=== PATIENT | female | born 1955 | race Caucasian/White ===

== ENCOUNTER 2019-11-10 15:06 | Outpatient (CLI) | payer MEDICARE, SELFPAY ==
--- NOTE | 2019-11-10 15:17 | XR_ITS ---
WS: [id number] Bone mineral density performed on a [employer] IDXA, 11/10/2019 Clinical data: POSTMENOPAUSAL Comparison study: DEXA scan, 06/11/2016. Findings: The first 4 lumbar vertebral bodies demonstrated the bone mineral density of 1.413 g/cm2 for a young adult T score of 1.9. Measurement of the left hip reveals a bone mineral density of 0.695 g/cm2 with a young adult T score of -2.5. Measurement of the right hip reveals the bone mineral density of 0.697 g/cm2 for young adult T score of -2.5. XR/XR DEXA axial skeleton* [id number] Impression: 1. Osteopenia of the lumbar spine. 2. Osteoporosis of both hips. 3. The bone mineral density of the hips and spine has worsened.
== END 2019-11-10 15:07 | disposition home or self-care (01) ==
LOC: RADWPI 15:13
PROVIDERS: Family Provider Nurse Practitioner Family; PCP Nurse Practitioner Family; Referring Provider Nurse Practitioner Family; Visit Provider Nurse Practitioner Women's Health
DX: Z78.0 Asymptomatic menopausal state (principal); M85.88 Other specified disorders of bone density and structure, other site; M81.8 Other osteoporosis without current pathological fracture
CPT/HCPCS: 77080

== ENCOUNTER → 2019-11-26 13:54 | Outpatient (BNVA) | payer MEDICARE, MEDICAID, SELFPAY | PROVIDERS: Family Provider Nurse Practitioner Family; PCP Nurse Practitioner Family; Visit Provider Nurse Practitioner Family | DX: R30.0 Dysuria (principal); Z23 Encounter for immunization; J01.00 Acute maxillary sinusitis, unspecified; H57.89 Other specified disorders of eye and adnexa | CPT/HCPCS: 81003 ==

== ENCOUNTER → 2020-01-08 12:30 | Outpatient (BNVA) | payer MEDICARE, SELFPAY | PROVIDERS: Family Provider Nurse Practitioner Family; PCP Nurse Practitioner Family; Visit Provider Nurse Practitioner Psychiatric/Mental Health | DX: F31.62 Bipolar disorder, current episode mixed, moderate (principal); F43.12 Post-traumatic stress disorder, chronic; F40.01 Agoraphobia with panic disorder; G24.01 Drug induced subacute dyskinesia; F17.210 Nicotine dependence, cigarettes, uncomplicated | CPT/HCPCS: 99214 ==

== ENCOUNTER → 2020-01-14 09:48 | Outpatient (BNVA) | payer OTHER, SELFPAY | PROVIDERS: Family Provider Nurse Practitioner Family; PCP Nurse Practitioner Family; Visit Provider Nurse Practitioner Psychiatric/Mental Health | DX: Z79.899 Other long term (current) drug therapy (principal) | CPT/HCPCS: 80053; 80061; 83036; 85025 ==

== ENCOUNTER → 2020-01-27 09:06 | Outpatient (BNVA) | payer MEDICARE, SELFPAY | PROVIDERS: Family Provider Nurse Practitioner Family; PCP Nurse Practitioner Family; Visit Provider Nurse Practitioner Psychiatric/Mental Health | DX: F31.62 Bipolar disorder, current episode mixed, moderate (principal); F43.12 Post-traumatic stress disorder, chronic; F40.01 Agoraphobia with panic disorder; G24.01 Drug induced subacute dyskinesia; F17.210 Nicotine dependence, cigarettes, uncomplicated | CPT/HCPCS: 99214 ==

== ENCOUNTER → 2020-02-10 07:40 | Outpatient (BNVA) | payer MEDICARE, SELFPAY | PROVIDERS: Family Provider Nurse Practitioner Family; PCP Nurse Practitioner Family; Visit Provider Nurse Practitioner Psychiatric/Mental Health | DX: F31.62 Bipolar disorder, current episode mixed, moderate (principal); F43.12 Post-traumatic stress disorder, chronic; F40.01 Agoraphobia with panic disorder; G24.01 Drug induced subacute dyskinesia; F17.210 Nicotine dependence, cigarettes, uncomplicated | CPT/HCPCS: 99214 ==

== ENCOUNTER → 2020-02-24 08:27 | Outpatient (BNVA) | payer MEDICARE, SELFPAY | PROVIDERS: Family Provider Nurse Practitioner Family; PCP Nurse Practitioner Family; Visit Provider Nurse Practitioner Psychiatric/Mental Health | DX: F31.62 Bipolar disorder, current episode mixed, moderate (principal); F43.12 Post-traumatic stress disorder, chronic; F40.01 Agoraphobia with panic disorder; G24.01 Drug induced subacute dyskinesia; F17.210 Nicotine dependence, cigarettes, uncomplicated; F60.3 Borderline personality disorder | CPT/HCPCS: 99214 ==

== ENCOUNTER → 2020-03-07 11:48 | Outpatient (BNVA) | payer MEDICARE, SELFPAY | PROVIDERS: Family Provider Nurse Practitioner Family; PCP Nurse Practitioner Family; Visit Provider Nurse Practitioner Psychiatric/Mental Health | DX: F43.12 Post-traumatic stress disorder, chronic (principal); F31.62 Bipolar disorder, current episode mixed, moderate; F40.01 Agoraphobia with panic disorder; F17.210 Nicotine dependence, cigarettes, uncomplicated; G24.01 Drug induced subacute dyskinesia; F33.2 Major depressive disorder, recurrent severe without psychotic features | CPT/HCPCS: 99214 ==

== ENCOUNTER → 2020-03-23 08:09 | Outpatient (BNVA) | payer MEDICARE, SELFPAY ==
[2020-01-25 10:52] VITALS: BP 111/72; BMI 24.9
== END ==
PROVIDERS: Family Provider Nurse Practitioner Family; PCP Nurse Practitioner Family; Visit Provider Nurse Practitioner Psychiatric/Mental Health
DX: F31.62 Bipolar disorder, current episode mixed, moderate (principal); F43.12 Post-traumatic stress disorder, chronic; F40.01 Agoraphobia with panic disorder; G24.01 Drug induced subacute dyskinesia; F17.210 Nicotine dependence, cigarettes, uncomplicated
CPT/HCPCS: 99214

== ENCOUNTER → 2020-04-11 08:13 | Outpatient (BNVA) | payer MEDICARE, MEDICAID, SELFPAY ==
[2020-01-25 10:52] VITALS: BP 111/72; BMI 24.9
== END ==
PROVIDERS: Family Provider Nurse Practitioner Family; PCP Nurse Practitioner Family; Visit Provider Nurse Practitioner Psychiatric/Mental Health
DX: F31.62 Bipolar disorder, current episode mixed, moderate (principal); F43.12 Post-traumatic stress disorder, chronic; F40.01 Agoraphobia with panic disorder; G24.01 Drug induced subacute dyskinesia; F17.210 Nicotine dependence, cigarettes, uncomplicated
CPT/HCPCS: 99214

== ENCOUNTER → 2020-04-13 09:56 | Outpatient (BNVA) | payer MEDICARE, MEDICAID, SELFPAY ==
[2020-01-25 10:52] VITALS: BP 111/72; BMI 24.9
== END ==
PROVIDERS: Family Provider Nurse Practitioner Family; PCP Nurse Practitioner Family; Visit Provider Nurse Practitioner Family
DX: Z79.899 Other long term (current) drug therapy (principal)
CPT/HCPCS: 80053; 80178; 85025

== ENCOUNTER → 2020-05-18 07:41 | Outpatient (BNVA) | payer MEDICARE, MEDICAID, SELFPAY ==
[2020-01-25 10:52] VITALS: BP 111/72; BMI 24.9
== END ==
PROVIDERS: Family Provider Nurse Practitioner Family; PCP Nurse Practitioner Family; Visit Provider Nurse Practitioner Psychiatric/Mental Health
DX: F31.62 Bipolar disorder, current episode mixed, moderate (principal); F43.12 Post-traumatic stress disorder, chronic; F40.01 Agoraphobia with panic disorder; G24.01 Drug induced subacute dyskinesia; F17.210 Nicotine dependence, cigarettes, uncomplicated
CPT/HCPCS: 99214

== ENCOUNTER → 2020-06-15 07:47 | Outpatient (BNVA) | payer MEDICARE, MEDICAID, SELFPAY ==
[2020-01-25 10:52] VITALS: BP 111/72; BMI 24.9
== END ==
PROVIDERS: Family Provider Nurse Practitioner Family; PCP Nurse Practitioner Family; Visit Provider Nurse Practitioner Psychiatric/Mental Health
DX: F31.62 Bipolar disorder, current episode mixed, moderate (principal); F43.12 Post-traumatic stress disorder, chronic; F40.01 Agoraphobia with panic disorder; F17.210 Nicotine dependence, cigarettes, uncomplicated; G24.01 Drug induced subacute dyskinesia
CPT/HCPCS: 99214

== ENCOUNTER → 2020-07-15 09:23 | Outpatient (BNVA) | payer MEDICARE, MEDICAID, SELFPAY ==
[2020-01-25 10:52] VITALS: BP 111/72; BMI 24.9
== END ==
PROVIDERS: Family Provider Nurse Practitioner Family; PCP Nurse Practitioner Family; Visit Provider Nurse Practitioner Psychiatric/Mental Health
DX: F31.62 Bipolar disorder, current episode mixed, moderate (principal); F43.12 Post-traumatic stress disorder, chronic; F40.01 Agoraphobia with panic disorder; F17.210 Nicotine dependence, cigarettes, uncomplicated; G24.01 Drug induced subacute dyskinesia
CPT/HCPCS: 99214

== ENCOUNTER → 2020-07-25 08:53 | Outpatient (BNVA) | payer MEDICARE, MEDICAID, SELFPAY ==
[2020-01-25 10:52] VITALS: BP 111/72; BMI 24.9
== END ==
PROVIDERS: Family Provider Nurse Practitioner Family; PCP Nurse Practitioner Family; Visit Provider Nurse Practitioner Family
DX: E78.5 Hyperlipidemia, unspecified (principal); J44.9 Chronic obstructive pulmonary disease, unspecified
CPT/HCPCS: 80053; 80061; 85025

== ENCOUNTER → 2020-08-10 08:14 | Outpatient (BNVA) | payer MEDICARE, MEDICAID, SELFPAY ==
[2020-01-25 10:52] VITALS: BP 111/72; BMI 24.9
== END ==
PROVIDERS: Family Provider Nurse Practitioner Family; PCP Nurse Practitioner Family; Visit Provider Nurse Practitioner Psychiatric/Mental Health
DX: F31.62 Bipolar disorder, current episode mixed, moderate (principal); F43.12 Post-traumatic stress disorder, chronic; F40.01 Agoraphobia with panic disorder; F17.210 Nicotine dependence, cigarettes, uncomplicated
CPT/HCPCS: 99214

== ENCOUNTER → 2020-08-24 13:30 | Outpatient (BNVA) | payer MEDICARE, MEDICAID, SELFPAY ==
[2020-08-24 08:35] VITALS: BP 111/72; BMI 24.9
== END ==
PROVIDERS: Family Provider Nurse Practitioner Family; PCP Nurse Practitioner Family; Visit Provider Nurse Practitioner Family
DX: J43.9 Emphysema, unspecified (principal)
CPT/HCPCS: 71046

== ENCOUNTER → 2020-10-12 07:57 | Outpatient (BNVA) | payer MEDICARE, MEDICAID, SELFPAY ==
[2020-08-24 08:35] VITALS: BP 111/72; BMI 24.9
== END ==
PROVIDERS: Family Provider Nurse Practitioner Family; PCP Nurse Practitioner Family; Visit Provider Nurse Practitioner Psychiatric/Mental Health
DX: F31.62 Bipolar disorder, current episode mixed, moderate (principal); F43.12 Post-traumatic stress disorder, chronic; F40.01 Agoraphobia with panic disorder; G24.01 Drug induced subacute dyskinesia; F17.210 Nicotine dependence, cigarettes, uncomplicated
CPT/HCPCS: 99214

== ENCOUNTER 2020-10-25 10:21 | Outpatient (CLI) | payer MEDICARE, MEDICAID, SELFPAY ==
[2020-08-24 08:35] VITALS: BP 111/72; BMI 24.9
--- NOTE | 2020-10-25 10:30 | CT_ITS ---
WS: [id number] LDCT LUNG CANCER SCREENING HISTORY: NICOTINE DEPENDENCE, CIGARETTES TECHNIQUE: Axial imaging performed from the apices to 1 cm below the costophrenic angles. Coronal and sagittal reformats are submitted with axial MIP series. All CT scans at [facility] use at least one of these dose optimization techniques: automated exposure control; mA and/or kV adjustment per patient size (includes targeted exams where dose is matched to clinical indication); or iterativ e reconstruction. DLP: 58.15 mGy.cm DIvol: 1.58 mGy COMPARISON: None available. Diagnostic quality: Satisfactory Lung Nodules: None. Lungs: Mild hyperexpansion from emphysema. No endobronchial lesions. Heart: Normal size heart. Other findings: None. CT/CT lung screening [id number] IMPRESSION: LUNG-RADS: 1-Negative FOLLOW UP: 12 Month: Continue annual screening with LDCT OTHER FINDINGS (S MODIFIER): None.
== END 2020-10-25 10:22 | disposition home or self-care (01) ==
LOC: CT 10:28
PROVIDERS: PCP Nurse Practitioner Family; Visit Provider Internal Medicine Pulmonary Disease
DX: Z12.2 Encounter for screening for malignant neoplasm of respiratory organs (principal); F17.210 Nicotine dependence, cigarettes, uncomplicated
CPT/HCPCS: G0297

== ENCOUNTER → 2020-11-16 08:11 | Outpatient (BNVA) | payer MEDICARE, MEDICAID, SELFPAY ==
[2020-08-24 08:35] VITALS: BP 111/72; BMI 24.9
== END ==
PROVIDERS: PCP Nurse Practitioner Family; Visit Provider Nurse Practitioner Psychiatric/Mental Health
DX: F31.62 Bipolar disorder, current episode mixed, moderate (principal); F43.12 Post-traumatic stress disorder, chronic; F40.01 Agoraphobia with panic disorder; G24.01 Drug induced subacute dyskinesia; F17.210 Nicotine dependence, cigarettes, uncomplicated
CPT/HCPCS: 99214

== ENCOUNTER 2020-11-25 13:51 | Outpatient (CLI) | payer MEDICARE, MEDICAID, SELFPAY ==
[2020-08-24 08:35] VITALS: BP 111/72; BMI 24.9
--- NOTE | 2020-11-25 14:00 | MM_ITS ---
WS: [id number] BILATERAL SCREENING DIGITAL MAMMOGRAM WITH CAD HISTORY: SCREENING COMPARISON: 07/31/2019 and 06/23/2018 Bilateral CC and MLO views submitted. Computer aided detection analyzed. Breast composition: There are scattered areas of fibroglandular density. No suspicious masses, microc alcifications or architectural distortion. MM/[place] [id number] IMPRESSION: BI-RADS: 1-Negative FOLLOW UP: 1 Year Follow-up
== END 2020-11-25 13:52 | disposition home or self-care (01) ==
LOC: RADSHAW 13:57
PROVIDERS: PCP Nurse Practitioner Family; Visit Provider Nurse Practitioner Family
DX: Z12.31 Encounter for screening mammogram for malignant neoplasm of breast (principal)
CPT/HCPCS: 77067

== ENCOUNTER → 2020-12-07 08:15 | Outpatient (BNVA) | payer MEDICARE, MEDICAID, SELFPAY ==
[2020-08-24 08:35] VITALS: BP 111/72; BMI 24.9
== END ==
PROVIDERS: PCP Nurse Practitioner Family; Visit Provider Nurse Practitioner Psychiatric/Mental Health
DX: F31.62 Bipolar disorder, current episode mixed, moderate (principal); F43.12 Post-traumatic stress disorder, chronic; F40.01 Agoraphobia with panic disorder; G24.01 Drug induced subacute dyskinesia; F17.210 Nicotine dependence, cigarettes, uncomplicated
CPT/HCPCS: 99214

== ENCOUNTER → 2021-01-05 08:04 | Outpatient (BNVA) | payer MEDICARE, MEDICAID, SELFPAY ==
[2020-08-24 08:35] VITALS: BP 111/72; BMI 24.9
== END ==
PROVIDERS: PCP Nurse Practitioner Family; Visit Provider Nurse Practitioner Psychiatric/Mental Health
DX: F31.62 Bipolar disorder, current episode mixed, moderate (principal); F43.12 Post-traumatic stress disorder, chronic; F40.01 Agoraphobia with panic disorder; F17.210 Nicotine dependence, cigarettes, uncomplicated; G24.01 Drug induced subacute dyskinesia; Z79.899 Other long term (current) drug therapy
CPT/HCPCS: 99214

== ENCOUNTER → 2021-01-10 08:32 | Outpatient (BNVA) | payer MEDICARE, MEDICAID, SELFPAY ==
[2020-08-24 08:35] VITALS: BP 111/72; BMI 24.9
== END ==
PROVIDERS: PCP Nurse Practitioner Family; Visit Provider Nurse Practitioner Psychiatric/Mental Health
DX: F31.62 Bipolar disorder, current episode mixed, moderate (principal); Z79.899 Other long term (current) drug therapy
CPT/HCPCS: 80053; 80061; 80178; 84443

== ENCOUNTER → 2021-02-02 08:43 | Outpatient (BNVA) | payer MEDICARE, MEDICAID, SELFPAY ==
[2020-08-24 08:35] VITALS: BP 111/72; BMI 24.9
== END ==
PROVIDERS: PCP Nurse Practitioner Family; Visit Provider Nurse Practitioner Psychiatric/Mental Health
DX: F31.62 Bipolar disorder, current episode mixed, moderate (principal); F43.12 Post-traumatic stress disorder, chronic; F40.01 Agoraphobia with panic disorder; F17.210 Nicotine dependence, cigarettes, uncomplicated; G24.01 Drug induced subacute dyskinesia
CPT/HCPCS: 99214

== ENCOUNTER → 2021-03-09 10:14 | Outpatient (BNVA) | payer MEDICARE, MEDICAID, SELFPAY ==
[2020-08-24 08:35] VITALS: BP 111/72; BMI 24.9
== END ==
PROVIDERS: PCP Nurse Practitioner Family; Visit Provider Otolaryngology
DX: R49.0 Dysphonia (principal); Z20.822 Contact with and (suspected) exposure to COVID-19
CPT/HCPCS: 87635

== ENCOUNTER → 2021-03-13 07:57 | Outpatient (BNVA) | payer MEDICARE, MEDICAID, SELFPAY ==
[2020-08-24 08:35] VITALS: BP 111/72; BMI 24.9
== END ==
PROVIDERS: PCP Nurse Practitioner Family; Visit Provider Nurse Practitioner Psychiatric/Mental Health
DX: F31.62 Bipolar disorder, current episode mixed, moderate (principal); F43.12 Post-traumatic stress disorder, chronic; F40.01 Agoraphobia with panic disorder; F17.210 Nicotine dependence, cigarettes, uncomplicated; G24.01 Drug induced subacute dyskinesia; F32.9 Major depressive disorder, single episode, unspecified
CPT/HCPCS: 99214

== ENCOUNTER 2021-03-15 09:45 | Day surgery (SDC) | payer MEDICARE, MEDICAID, SELFPAY ==
[2020-08-24 08:35] VITALS: BP 111/72; BMI 24.9
[2021-03-14 14:49] VITALS: BMI 26.8
[2021-03-15] VITALS (7 sets, daily range): BP systolic 109–119; BP diastolic 73–78; PULSE 75–84; RESP 16–24; TEMP 36.3–36.6; O2SAT 95–99
[2021-03-15] MEDS: sodium chloride 0.9% 1,000 ML 30 ML IV (10:36)
--- NOTE | 2021-03-15 11:06 | ANES.PREANE2 ---
Pre-Anesthetic Assessment Pre-Anesthetic Assessment: Height/Weight: Height 1.68 m Weight 75.296 kg Temp Pulse Resp BP Pulse Ox 98 F 84 16 109/73 95 03/15/21 10:31 03/15/21 10:31 03/15/21 10:31 03/15/21 10:31 03/15/21 10:31 Preop Diagnosis: Hoarseness with left true vocal cord lesion Proposed Procedure: Operation Date: 03/15/21 11:30 Proposed Procedures p Direct Laryngoscopy with biospy 44065 R49.0(Not Applicable) - Daniel Castillo MD Familial anesthetic complications: None Was Beta Paula taken within 24 hours: N/A Was Clonidine taken within 24 hours: N/A Last intake: Intake Last Liquid Date 03/15/21 Last Liquid Time 02:00 Last Solid Date 03/14/21 Last Solid Time 18:30 Social: Social History: Tobacco and No alcohol Exam: Pre-Anes Outpt Exam: alert, oriented x 3, clear to auscultation bilaterally and regular rate & rhythm Airway: Cervical ROM: WNL MP: 3 Dentition: Full Pulmonary: Pulmonary: COPD GI: GI: GERD Metabolic: Metabolic: Hyperlipidemia Neuropsych: Comments: tardive dyskinesia Anesthetic Plan: ASA status: 3 Anesthesia: General Risk of > 500 ml blood loss (7ml/kg in children): No Meds/Allergies Current Medications: Current Medications Generic Name Dose Route Start Last Admin Trade Name Freq PRN Reason Stop Dose Admin Sodium Chloride 1,000 mls @ 30 ml s/hr 03/15/21 10:15 03/15/21 10:36 Sodium Chloride 0.9% IV 03/16/21 10:14 30 mls/hr .Q24H JORGE Administration PFSH Anesthesia PFSH: Medical History (Updated 03/13/21 @ 09:38 by Nelda Barbour, [facility]) Anxiety and depression Bipolar 1 disorder, mixed, moderate Bipolar disorder, current episode mixed, unspecified Chronic arthritis Chronic GERD Chronic obstructive pulmonary disease, unspecified Chronic post-traumatic stress disorder Depression, major, recurrent, moderate Dyskinesia, tardive Drug induced Dyslipidemia Environmental and seasonal allergies Major depressive disorder, recurrent episode, moderate with anxious distress Nicotine dependence, cigarettes, uncomplicated Panic disorder with agoraphobia Unspecified hearing loss, left ear Surgical History History of back surgery History of bilateral knee replacement History of D&C History of laparoscopy History of sinus surgery History of tonsillectomy Family History Other Cancer Chronic obstructive pulmonary disease, unspecified Diabetes Heart disease Hyperlipidemia Hypertension Thyroid disease Social History Smoking and tobacco status: current every day smoker cigarettes Packs smoked per day: 1 Years cigarettes smoked: 40 Quit status (tobacco): not considering quitting Smoking risk assessment/counseling performed?: Yes Alcohol intake: never Lives independently: Yes Household members: none Housing: Apartment Marital status: Single Number of children: 0 Number of grandchildren: 0 Highest education level completed: Some College, No Degree service: No Current occupational status: disabled Pets and animals: No History of recent travel: No Leisure activites: other Leisure activities details: watching television Sexually active: No Current gender identity: Female Sury/Shinto: [employer] Special sury needs: No Agree to transfusion: Yes Financial difficulty paying for basics: Not Very Hard Female Reproductive History: Para: 0 Spontaneous abortions: No Date of menopause: 05/03/04 Data Anesthesia Cardiac Studies: No Data to Display
--- NOTE | 2021-03-15 11:07 | W.PM.OPSUD ---
Surgery/Procedure H&P Update DATE OF PROCEDURE: March 15, 2021 DATE H&P PERFORMED: 03/02/21 H&P UPDATE INFORMATION: I have reviewed H&P completed within last 30 days, I have examined patient prior to procedure and No changes to prior documentation PREOP DIAGNOSIS: Hoarseness with left true vocal cord lesion PLANNED PROCEDURE: Operation Date: 03/15/21 11:30 Proposed Procedures p Direct Laryngoscopy with biospy 68795 R49.0(Not Applicable) - Daniel Castillo MD
[2021-03-15] MEDS: levofloxacin-dextrose 5 % 750 MG/150 ML PREMIX 100 MG IV (11:18)
[2021-03-15] MEDS: EPINEPHrine 1 mg/mL INJ XX (11:35)
--- NOTE | 2021-03-15 11:43 | PM.OP ---
Operative Report Date of procedure: March 15, 2021 Pre-op Diagnosis: Hoarseness with left true vocal cord lesion Post-op diagnosis: same Post-op Findings: Left vocal cord centrally had leukoplakic lesion on superior and medial surfaces. Procedure Done: Direct suspension microscopic laryngoscopy with biopsy of left true vocal cord lesion Specimens removed/disposition: Left true vocal cord specimen to pathology for permanent section Surgeon: Daniel Castillo Anesthesia: General Estimated blood loss (mL): 5 Complications: No complications Findings: Findings at the time of surgery were white plaque that was firm on superior and medial surface of the central portion of the left true vocal cord. Mild erythema around this. Also swelling. Condition: stable Disposition: PACU Brief History: 65-year-old female patient with a heavy smoking history and hoarseness noted to have a leukoplakic lesion in the central vocal cord on the left side. She is being brought to the operating room to undergo direct suspension microscopic laryngoscopy and biopsy of this area. The procedure its risks and complications were explained in detail in the office setting. These risks included bleeding infection scarring voice change hoarseness regrowth need for additional treatment and more serious risk such as heart attack or stroke or not surviving the surgery. With these things understood informed consent was granted. Procedure: Patient was placed on the operating table in supine position. Adequate general endotracheal tube anesthesia was obtained. The table was rotated 90 degrees. The head was dropped 15 degrees to the horizontal and the eyes were taped shut. A timeout was accomplished identifying the patient date of plan procedure allergies fire risk and medications given. With all in agreement the procedure continued. A tooth guard was placed over the upper dentition. A Sridhar Matt mouthgag was then inserted over the endotracheal tube and tongue ensuring that the upper incisors were in the guard. This was then opened and suspended from a Dillard stand. A microscope with a 400 lens was brought in for visualization through the laryngoscope. The left cord was visualized and noted to have the white lacelike plaque covering the medial and superior surface in the central portion of the left cord. This was removed with cup forceps. With removal it was evident that there was definite edema of the cord as well. After the biopsies were taken epinephrine 1-1000 was applied on a cottonoid. After couple of minutes this was removed. There was no sign of active bleeding. No other biopsies were necessary. An LTA was dispensed utilizing 1% Xylocaine 3 mL. Excess was suctioned. The laryngoscope was taken down from suspension and the laryngoscope was removed. A tooth guard was removed. The patient was then returned to the anesthesiologist for wake-up and extubation. She tolerated the procedure well had an estimated blood loss of 5 mL or less and arrived in recovery in stable condition.
--- NOTE | 2021-03-15 11:56 | SUR.PHASEI ---
PT AWAKE ALERT INSTRUCTED TO BE ON STRICT VOICE REST,PT NODS HEAD IN ANSWER, DENIES PAIN AND NAUSEA, VSS PT ON RA BUT NODS THAT SHE FEELS SHORT OF BREATH, SATS 99% PT PLACED ON2LNC FOR COMFORT, SATS MAINTAINED AT 97% PT EXPRESSING MUCH MORE RELAXED PT TAKING OCC ICE CHIP AND TOLERATING WELLL
--- NOTE | 2021-03-15 14:25 | ANE.PACU2 ---
Inpatient post-anesthesia follow up: Airway intact: Yes Vital signs: Temperature 97.8 F Pulse Rate 76 Respiratory Rate 18 Blood Pressure 114/74 Pulse Oximetry 96 Oxygen Delivery Me thod Nasal Cannula Oxygen Flow Rate 2.0 Fraction of Inspir ed Oxygen Hydration adequate: Yes Nausea and vomiting: No Pain level: 2 Mental status: Baseline
== END 2021-03-15 12:55 | disposition home or self-care (01) ==
PROVIDERS: PCP Nurse Practitioner Family; Visit Provider Otolaryngology
PROC: 0CJS8ZZ Inspection of Larynx, Via Natural or Artificial Opening Endoscopic (ICD-10-PCS; CPT 31536; principal; 2021-03-15 11:20)
DX: D14.1 Benign neoplasm of larynx (principal); R49.0 Dysphonia; J44.9 Chronic obstructive pulmonary disease, unspecified; E78.5 Hyperlipidemia, unspecified; F41.9 Anxiety disorder, unspecified; F31.9 Bipolar disorder, unspecified; M19.90 Unspecified osteoarthritis, unspecified site; F17.210 Nicotine dependence, cigarettes, uncomplicated
CPT/HCPCS: 31536; 88305; J0171; J1100; J1956; J2405; J2704; J2710; J3010; J3490; J7030

== ENCOUNTER → 2021-04-10 07:36 | Outpatient (BNVA) | payer MEDICARE, MEDICAID, SELFPAY ==
[2020-08-24 08:35] VITALS: BP 111/72; BMI 24.9
== END ==
PROVIDERS: PCP Nurse Practitioner Family; Visit Provider Nurse Practitioner Psychiatric/Mental Health
DX: F31.62 Bipolar disorder, current episode mixed, moderate (principal); F43.12 Post-traumatic stress disorder, chronic; F40.01 Agoraphobia with panic disorder; F17.210 Nicotine dependence, cigarettes, uncomplicated; G24.01 Drug induced subacute dyskinesia
CPT/HCPCS: 99214

== ENCOUNTER 2021-04-27 08:58 | Outpatient (CLI) | payer MEDICARE, MEDICAID, SELFPAY ==
[2020-08-24 08:35] VITALS: BP 111/72; BMI 24.9
--- NOTE | 2021-04-27 09:30 | USCV_ITS ---
Tika Garcia Age: 65 Gender: F : 1955 Exam Date: 04/27/2021 09:23 Ordering Phys: Tracey Shrestha PYTHON ENGINEER-Yvrose Technologist: Teresa Bravo Exam Location: [facility] [place] Indication: Localized edema BP: 110 / 62 HR: 67 Rhythm: Sinus Technical Quality: Suboptimal MEASUREMENTS (Male / Female) Normal Values 2D ECHO LV Diastolic Diameter PLAX 3.0 cm 4.2 - 5.9 / 3.9 - 5.3 cm LV Systolic Diameter PLAX 2.0 cm LV Chamber Size 3.5 cm IVS Diastolic Thickness 1.9 cm 0.6 - 1.0 / 0.6 - 0.9 cm IVS Systolic Thickness 1.7 cm LVPW Diastolic Thickness 1.0 cm 0.6 - 1.0 / 0.6 - 0.9 cm LVPW Systolic Thickness 1.2 cm RV Chamber Size 2.2 cm LVOT Diameter 1.8 cm LV Ejection Fraction 2D Teich 65.7 % LV Ejection Fraction MOD 2C 73.8 % LV Ejection Fraction 2C AL 73.3 % LA Diameter 2.3 cm LA Width 1.9 cm LA Height 4.5 cm RA Width 2.1 cm RA Height 4.1 cm Aorta at Sinotubular Diameter 2.5 cm M-MODE LV Diastolic Diameter MM 3.9 cm 4.2 - 5.9 / 3.9 - 5.3 cm LV Systolic Diameter MM 2.5 cm LV Ejection Fraction MM Teich 64.2 % IVS Diastolic Thickness MM 1.1 cm 0.6 - 1.0 / 0.6 - 0.9 cm IVS Systolic Thickness MM 1.0 cm LVPW Diastolic Thickness MM 1.0 cm 0.6 - 1.0 / 0.6 - 0.9 cm LVPW Systolic Thickness MM 1.3 cm RV Diastolic Diameter MM 0.5 cm Aortic Annulus Diameter 2.9 cm LA Ao Ratio MM 0.9 DOPPLER AV Peak Velocity 118.0 cm/s LVOT Peak Velocity 113.0 cm/s AV Area Cont Eq vti 2.6 cm squared AV Area Cont Eq pk 2.5 cm squared MV Area PHT 3.1 cm squared Mitral E to A Ratio 0.9 MV E' Velocity 35.5 cm/s Mitral E to MV E' Ratio 8.2 Mitral E to LV E' Lateral Ratio 7.0 Mitral E to LV E' Septal Ratio 10.1 TV Peak E Velocity 46.0 cm/s Right Atrial Pressure 8.0 mmHg FINDINGS Left Ventricle Normal left ventricular size, systolic function and wall thickness, with no regional wall motion abnormalities. Left ventricular ejection fraction is estimated at 65 %. Normal diastolic function. Right Ventricle Normal right ventricular size and systolic function. Normal pulmonary artery pressure. Right Atrium Normal right atrial size. Right atrial pressure estimated at 8 mm Hg. Left Atrium Normal left atrial size. Mitral Valve Mildly thickened mitral valve. No mitral valve stenosis. No significant mitral valve regurgitation. Aortic Valve Aortic valve not well visualized. No aortic valve stenosis. No aortic valve regurgitation. Tricuspid Valve Structurally normal tricuspid valve. Trace to mild tricuspid valve regurgitation. Pulmonic Valve Pulmonic valve not well visualized. Pericardium No pericardial effusion. Aorta Normal sized aortic root. Normal sized inferior vena cava with normal respiratory variations. CONCLUSIONS 1. Normal left ventricular size, systolic function and wall thickness, with no regional wall motion abnormalities. Left ventricular ejection fraction is estimated at 65 %. Normal diastolic function. 2. Normal right ventricular size and systolic function. 3. No significant valvular abnormality. 4. Normal pulmonary artery pressure. 5. No prior similar studies to compare. Merlyn Fung MD (Electronically Signed) Final Date: 29 April 2021 12:41 S
== END 2021-04-27 08:59 | disposition home or self-care (01) ==
PROVIDERS: PCP Nurse Practitioner Family; Visit Provider Nurse Practitioner Family
DX: R60.0 Localized edema (principal)
CPT/HCPCS: 93306

== ENCOUNTER → 2021-05-15 07:10 | Outpatient (BNVA) | payer MEDICARE, MEDICAID, SELFPAY ==
[2020-08-24 08:35] VITALS: BP 111/72; BMI 24.9
== END ==
PROVIDERS: PCP Nurse Practitioner Family; Visit Provider Nurse Practitioner Psychiatric/Mental Health
DX: F31.62 Bipolar disorder, current episode mixed, moderate (principal); F43.12 Post-traumatic stress disorder, chronic; F40.01 Agoraphobia with panic disorder; F17.210 Nicotine dependence, cigarettes, uncomplicated; G24.01 Drug induced subacute dyskinesia; Z79.899 Other long term (current) drug therapy
CPT/HCPCS: 99214

== ENCOUNTER → 2021-06-07 09:54 | Outpatient (BNVA) | payer MEDICARE, MEDICAID, SELFPAY ==
[2020-08-24 08:35] VITALS: BP 111/72; BMI 24.9
== END ==
PROVIDERS: PCP Nurse Practitioner Family; Visit Provider Nurse Practitioner Psychiatric/Mental Health
DX: E78.5 Hyperlipidemia, unspecified (principal); Z79.899 Other long term (current) drug therapy; J30.89 Other allergic rhinitis; J44.9 Chronic obstructive pulmonary disease, unspecified
CPT/HCPCS: 80053; 80061; 80178; 85025

== ENCOUNTER → 2021-06-19 07:30 | Outpatient (BNVA) | payer MEDICARE, MEDICAID, SELFPAY ==
[2020-08-24 08:35] VITALS: BP 111/72; BMI 24.9
== END ==
PROVIDERS: PCP Nurse Practitioner Family; Visit Provider Nurse Practitioner Psychiatric/Mental Health
DX: F31.62 Bipolar disorder, current episode mixed, moderate (principal); F43.12 Post-traumatic stress disorder, chronic; F40.01 Agoraphobia with panic disorder; F17.210 Nicotine dependence, cigarettes, uncomplicated; G24.01 Drug induced subacute dyskinesia; Z79.899 Other long term (current) drug therapy
CPT/HCPCS: 99214

== ENCOUNTER → 2021-07-24 07:33 | Outpatient (BNVA) | payer MEDICARE, MEDICAID, SELFPAY ==
[2020-08-24 08:35] VITALS: BP 111/72; BMI 24.9
== END ==
PROVIDERS: PCP Nurse Practitioner Family; Visit Provider Nurse Practitioner Psychiatric/Mental Health
DX: F31.62 Bipolar disorder, current episode mixed, moderate (principal); F43.12 Post-traumatic stress disorder, chronic; F17.210 Nicotine dependence, cigarettes, uncomplicated; F40.01 Agoraphobia with panic disorder; G24.01 Drug induced subacute dyskinesia; Z79.899 Other long term (current) drug therapy
CPT/HCPCS: 99214

== ENCOUNTER → 2021-08-02 14:54 | Outpatient (BNVA) | payer MEDICARE, MEDICAID, SELFPAY ==
[2020-08-24 08:35] VITALS: BP 111/72; BMI 24.9
== END ==
PROVIDERS: PCP Nurse Practitioner Family; Visit Provider Nurse Practitioner Family
DX: R10.11 Right upper quadrant pain (principal); K21.9 Gastro-esophageal reflux disease without esophagitis
CPT/HCPCS: 80053; 85025

== ENCOUNTER → 2021-08-04 10:12 | Outpatient (BNVA) | payer MEDICARE, MEDICAID, SELFPAY ==
[2020-08-24 08:35] VITALS: BP 111/72; BMI 24.9
== END ==
PROVIDERS: PCP Nurse Practitioner Family; Visit Provider Nurse Practitioner Family
DX: R10.11 Right upper quadrant pain (principal)
CPT/HCPCS: 82270

== ENCOUNTER 2021-09-05 08:25 | Outpatient (CLI) | payer MEDICARE, MEDICAID, SELFPAY ==
[2020-08-24 08:35] VITALS: BP 111/72; BMI 24.9
--- NOTE | 2021-09-05 08:45 | US_ITS ---
WS: [id number] ULTRASOUND ABDOMEN LIMITED CLINICAL INFORMATION: R10.11 - Right upper quadrant pain COMPARISON: 017 FINDINGS: Liver Size: Normal. Craniocaudal length: 12.9 cm. Echogenicity: Normal. Surface nodularity: None. Mass (size and location): None. Bile ducts Intrahepatic ducts: Normal. Common bile duct diameter: 0.3 cm. Gallbladder Normal. Gallstones: None. Gallbladder sludge: None. Gallbladder wall thickening: None. Pericholecystic fluid: None. Sonographic Meeks sign: Absent. Pancreas Normal as visualized. Right kidney: Somewhat limited views inferior pole right kidney. Right kidney otherwise normal. Hydronephrosis: None. Size: 10.2 cm x 3.9 cm x 3.4 cm. Abdominal aorta and IVC Visualized portions are normal. Ascites: None. US/US abdomen limited [id number] IMPRESSION: 1. Normal liver. 2. Gallbladder is normal in appearance. 3. No hydronephrosis in right kidney. 4. Normal right upper quadrant ultrasound
== END 2021-09-05 08:26 | disposition home or self-care (01) ==
PROVIDERS: PCP Nurse Practitioner Family; Visit Provider Nurse Practitioner Family
DX: R10.11 Right upper quadrant pain (principal)
CPT/HCPCS: 76705

== ENCOUNTER → 2021-09-08 10:57 | Outpatient (BNVA) | payer MEDICARE, MEDICAID, SELFPAY ==
[2021-09-05 11:15] VITALS: BP 111/72; BMI 24.9
== END ==
PROVIDERS: PCP Nurse Practitioner Family; Visit Provider Nurse Practitioner Family
DX: R19.7 Diarrhea, unspecified (principal)
CPT/HCPCS: 87506

== ENCOUNTER → 2021-09-20 07:40 | Outpatient (BNVA) | payer MEDICARE, MEDICAID, SELFPAY ==
[2021-09-05 11:15] VITALS: BP 111/72; BMI 24.9
== END ==
PROVIDERS: PCP Nurse Practitioner Family; Visit Provider Nurse Practitioner Psychiatric/Mental Health
DX: F31.62 Bipolar disorder, current episode mixed, moderate (principal); F43.12 Post-traumatic stress disorder, chronic; F40.01 Agoraphobia with panic disorder; F17.210 Nicotine dependence, cigarettes, uncomplicated; G24.01 Drug induced subacute dyskinesia; Z79.899 Other long term (current) drug therapy
CPT/HCPCS: 99214

== ENCOUNTER → 2021-10-05 08:39 | Outpatient (BNVA) | payer MEDICARE, MEDICAID, SELFPAY ==
[2021-09-05 11:15] VITALS: BP 111/72; BMI 24.9
== END ==
PROVIDERS: PCP Nurse Practitioner Family; Visit Provider Nurse Practitioner Psychiatric/Mental Health
DX: F31.62 Bipolar disorder, current episode mixed, moderate (principal); F43.12 Post-traumatic stress disorder, chronic; F17.210 Nicotine dependence, cigarettes, uncomplicated; F40.01 Agoraphobia with panic disorder; G24.01 Drug induced subacute dyskinesia; Z79.899 Other long term (current) drug therapy
CPT/HCPCS: 99214

== ENCOUNTER → 2021-11-02 11:06 | Outpatient (BNVA) | payer MEDICARE, MEDICAID, SELFPAY ==
[2021-09-05 11:15] VITALS: BP 111/72; BMI 24.9
== END ==
PROVIDERS: PCP Nurse Practitioner Family; Visit Provider Surgery
DX: Z11.52 Encounter for screening for COVID-19 (principal)
CPT/HCPCS: 87635

== ENCOUNTER 2021-11-08 08:04 | Day surgery (SDC) | payer MEDICARE, MEDICAID, SELFPAY ==
[2021-09-05 11:15] VITALS: BP 111/72; BMI 24.9
[2021-11-07 16:11] VITALS: BMI 26.6
--- NOTE | 2021-11-08 08:32 | ANES.PREANE2 ---
Pre-Anesthetic Assessment Pre-Anesthetic Assessment: Height/Weight: Height 1.68 m Weight 74.843 kg Preop Diagnosis: upper gi symptoms Proposed Procedure: Operation Date: 11/08/21 10:00 Proposed Procedures p EGD [id number] gerd(Not Applicable) - Billy Arzate MD Familial anesthetic complications: PONV Last intake: 11/07/21 Social: Social History: Tobacco and No alcohol Exam: Pre-Anes Outpt Exam: alert, oriented x 3, clear to auscultation bilaterally and regular rate & rhythm Airway: Submandibular: WNL Cervical ROM: Other (Limited due to pain) MP: 2 Dentition: Chipped Pulmonary: Pulmonary: COPD, LARRY and SOB CV/HEM: Comments: DLD METs < 4 : : None reported Hepatic: Hepatic: None reported GI: GI: GERD (Controlled with medications, continues to have nausea) Metabolic: Metabolic: None reported Musc/skel: Musc/skel: OA/DJD Neuropsych: Neuropsych: Anxiety, Bipolar and Depression Comments: Panic disorder w/ agoraphobia Tardive dyskinesia Anesthetic Plan: ASA status: 3 (66 year old female daily smoker w/ COPD leading LARRY w/ reduced METs below 4. ) Anesthesia: Anesthesia Evaluation, General and MAC Other: We discussed risk and benefits of MAC anesthesia including possible conversion to general as well as risk of recall of intraoperative stimuli including pain/discomfort. Patient agrees to proceed with MAC anesthesia. Other Pertinent Information: Vocal cord neoplasm (benign) PFSH Anesthesia PFSH: Medical History Anxiety and depression Bipolar 1 disorder, mixed, moderate Bipolar disorder, current episode mixed, unspecified Chronic arthritis Chronic GERD Chronic obstructive pulmonary disease, unspecified Chronic post-traumatic stress disorder Depression, major, recurrent, moderate Dyskinesia, tardive Drug induced Dyslipidemia Environmental and seasonal allergies Major depressive disorder, recurrent episode, moderate with anxious distress Nicotine dependence, cigarettes, uncomplicated Panic disorder with agoraphobia Psychiatric care Unspecified hearing loss, left ear Surgical History History of back surgery History of bilateral knee replacement History of colonoscopy within 10 yrs History of D&C History of laparoscopy History of sinus surgery History of tonsillectomy Family History Other Cancer Chronic obstructive pulmonary disease, unspecified Diabetes Heart disease Hyperlipidemia Hypertension Thyroid disease Social History Quit status (tobacco): not considering quitting Smoking risk assessment/counseling performed?: Yes Alcohol intake: never Lives independently: Yes Household members: none Housing: Apartment Marital status: Single Number of children: 0 Number of grandchildren: 0 Highest education level completed: Some College, No Degree service: No Current occupational status: disabled Pets and animals: No History of recent travel: No Leisure activites: other Leisure activities details: watching television Sexually active: No Current gender identity: Female Sury/Zoroastrianism: Jehovah'S Witness Special sury needs: No Agree to transfusion: Yes Financial difficulty paying for basics: Not Very Hard Female Reproductive History: Para: 0 Spontaneous abortions: No Data Anesthesia Cardiac Studies: Echocardiogram Ultrasound 04/27/21
[2021-11-08 09:19] VITALS: BP 118/83; PULSE 87; RESP 18; TEMP 37.1; O2SAT 96
[2021-11-08] MEDS: sodium chloride 0.9% 1,000 ML 30 ML IV (09:23)
--- NOTE | 2021-11-08 09:53 | P.HP_ITS ---
Same Day Surgery H&P Indication for Procedure/HPI DATE OF PROCEDURE: November 08, 2021 CHIEF COMPLAINT/INDICATIONFOR SURGICAL PROCEDURE: epigastric pain PREOP DIAGNOSIS: upper gi symptoms PLANNED PROCEDRUE: Operation Date: 11/08/21 10:00 Proposed Procedures p EGD [id number] gerd(Not Applicable) - Billy Arzate MD Medications/Allergies* Home Medications Medication Instructions Recorded Confirmed Type aspirin 81 mg tablet,delayed 81 mg PO DAILY 01/08/20 11/08/21 History release Allergies/Adverse Reactions Allergy/AdvReac Type Severity Reaction Status Date / Time peanut Allergy Severe Severe Verified 11/08/21 09:14 congestion, Itching & throat swelling Penicillins Allergy Severe ALGY-Anaphy Verified 11/08/21 09:14 laxis ibuprofen Allergy Intermediate ADR-Anxiety Verified 11/08/21 09:14 shellfish derived Allergy Intermediate Scalp Verified 11/08/21 09:14 itching & eyes tearing up. Sulfa (Sulfonamide Allergy Intermediate ALGY-Rash Verified 11/08/21 09:14 Antibiotics) Current Medications: Generic Name Dose Route Start Last Admin Trade Name Freq PRN Reason Stop Dose Admin Sodium Chloride 1,000 mls @ 30 mls/hr 11/08/21 08:45 11/08/21 09:23 Sodium Chloride 0.9% IV 11/09/21 08:44 30 mls/hr .Q24H JORGE Administration Pertinent History/Comorbid Conditions* Medical History (Updated 09/21/21 @ 15:46 by Carli Sahni) Anxiety and depression Bipolar 1 disorder, mixed, moderate Bipolar disorder, current episode mixed, unspecified Chronic arthritis Chronic GERD Chronic obstructive pulmonary disease, unspecified Chronic post-traumatic stress disorder Depression, major, recurrent, moderate Dyskinesia, tardive Drug induced Dyslipidemia Environmental and seasonal allergies Major depressive disorder, recurrent episode, moderate with anxious distress Nicotine dependence, cigarettes, uncomplicated Panic disorder with agoraphobia Psychiatric care Unspecified hearing loss, left ear Surgical History (Updated 09/18/21 @ 12:00 by Billy Arzate MD) History of back surgery History of bilateral knee replacement History of colonoscopy within 10 yrs History of D&C History of laparoscopy History of sinus surgery History of tonsillectomy Family History (Updated 01/18/20 @ 10:42 by ALLISON Livingston) Diabetes Heart disease Hyperlipidemia Chronic obstructive pulmonary disease, unspecified Cancer Hypertension Thyroid disease Social History Quit status (tobacco): not considering quitting Smoking risk assessment/counseling performed?: Yes Alcohol intake: never Lives independently: Yes Household members: none Housing: Apartment Marital status: Single Number of children: 0 Number of grandchildren: 0 Highest education level completed: Some College, No Degree service: No Current occupational status: disabled Pets and animals: No History of recent travel: No Leisure activites: other Leisure activities details: watching television Sexually active: No Current gender identity: Female Sury/Roman Catholic: Sabianism Special sury needs: No Agree to transfusion: Yes Financial difficulty paying for basics: Not Very Hard Pertinent Exam Findings alert, oriented x 3 and regular rate & rhythm Recommendations Surgery/Procedure today Coding Level of Care Code Acute Relief Master for Satinder Solano
[2021-11-08 10:04] VITALS: BP 120/79; PULSE 83; RESP 18; O2SAT 99
[2021-11-08 10:16] VITALS: BP 124/75; PULSE 77; RESP 18; O2SAT 94
--- NOTE | 2021-11-08 12:12 | ANE.PACU2 ---
Inpatient post-anesthesia follow up: Airway intact: Yes Vital signs: Temperature 98.7 F Pulse Rate 77 Respiratory Rate 18 Blood Pressure 124/75 Pulse Oximetry 94 Oxygen Delivery Me thod Room Air Oxygen Flow Rate Fraction of Inspir ed Oxygen Hydration adequate: Yes Nausea and vomiting: No Pain level: 1 Mental status: Baseline
== END 2021-11-08 10:32 | disposition home or self-care (01) ==
PROVIDERS: PCP Nurse Practitioner Family; Visit Provider Surgery
PROC: 0DJ08ZZ Inspection of Upper Intestinal Tract, Via Natural or Artificial Opening Endoscopic (ICD-10-PCS; CPT 43235; principal; 2021-11-08 10:00)
DX: K29.70 Gastritis, unspecified, without bleeding (principal); R10.13 Epigastric pain; Z79.82 Long term (current) use of aspirin; E78.5 Hyperlipidemia, unspecified; F17.210 Nicotine dependence, cigarettes, uncomplicated; J44.9 Chronic obstructive pulmonary disease, unspecified; K21.9 Gastro-esophageal reflux disease without esophagitis; M19.90 Unspecified osteoarthritis, unspecified site
CPT/HCPCS: 43239; 88305; 88342; 96360; J2704; J7030

== ENCOUNTER → 2021-11-10 07:33 | Outpatient (BNVA) | payer MEDICARE, MEDICAID, SELFPAY ==
[2021-09-05 11:15] VITALS: BP 111/72; BMI 24.9
== END ==
PROVIDERS: PCP Nurse Practitioner Family; Visit Provider Nurse Practitioner Psychiatric/Mental Health
DX: F31.62 Bipolar disorder, current episode mixed, moderate (principal); F43.12 Post-traumatic stress disorder, chronic; F17.210 Nicotine dependence, cigarettes, uncomplicated; F40.01 Agoraphobia with panic disorder; G24.01 Drug induced subacute dyskinesia; Z79.899 Other long term (current) drug therapy
CPT/HCPCS: 99214

== ENCOUNTER 2021-11-23 09:59 | Outpatient (CLI) | payer MEDICARE, MEDICAID, SELFPAY ==
[2021-09-05 11:15] VITALS: BP 111/72; BMI 24.9
--- NOTE | 2021-11-23 11:00 | CT_ITS ---
WS: [id number] LDCT LUNG CANCER SCREENING HISTORY: Lung cancer screening TECHNIQUE: Axial imaging performed from the apices to 1 cm below the costophrenic angles. Coronal and sagittal reformats are submitted with axial MIP series. All CT scans at [facility] use at least one of these dose optimization techniques: automated exposure control; mA and/or kV adjustment per patient size (includes targeted exams where dose is matched to clinical indication); or iterativ e reconstruction. DLP: 109.96 mGy.cm DIvol: 1.58 mGy,1.58 mGy COMPARISON: 10/25/2020 Diagnostic quality: Satisfactory Lung Nodules: None. Lungs: Mild emphysema. No intrabronchial lesions. Heart: Normal size heart. No pericardial effusion. Other findings: Eventration of the diaphragms bilaterally. CT/CT lung screening [id number] IMPRESSION: LUNG-RADS: 1-Negative FOLLOW UP: 12 Month: Continue annual screening with LDCT OTHER FINDINGS (S MODIFIER): None.
== END 2021-11-23 10:00 | disposition home or self-care (01) ==
LOC: RAD 10:05
PROVIDERS: PCP Nurse Practitioner Family; Visit Provider Internal Medicine Critical Care Medicine
DX: Z12.2 Encounter for screening for malignant neoplasm of respiratory organs (principal); F17.210 Nicotine dependence, cigarettes, uncomplicated
CPT/HCPCS: 71271

== ENCOUNTER → 2021-12-15 09:15 | Outpatient (BNVA) | payer MEDICARE, MEDICAID, SELFPAY ==
[2021-09-05 11:15] VITALS: BP 111/72; BMI 24.9
== END ==
PROVIDERS: PCP Nurse Practitioner Family; Visit Provider Nurse Practitioner Psychiatric/Mental Health
DX: F31.62 Bipolar disorder, current episode mixed, moderate (principal); F43.12 Post-traumatic stress disorder, chronic; F17.210 Nicotine dependence, cigarettes, uncomplicated; F40.01 Agoraphobia with panic disorder; G24.01 Drug induced subacute dyskinesia; Z79.899 Other long term (current) drug therapy
CPT/HCPCS: 99214

== ENCOUNTER → 2021-12-29 07:28 | Outpatient (BNVA) | payer MEDICARE, MEDICAID, SELFPAY ==
[2021-09-05 11:15] VITALS: BP 111/72; BMI 24.9
== END ==
PROVIDERS: PCP Nurse Practitioner Family; Visit Provider Nurse Practitioner Psychiatric/Mental Health
DX: F31.62 Bipolar disorder, current episode mixed, moderate (principal); F17.210 Nicotine dependence, cigarettes, uncomplicated; F43.12 Post-traumatic stress disorder, chronic; F40.01 Agoraphobia with panic disorder; G24.01 Drug induced subacute dyskinesia
CPT/HCPCS: 99214

== ENCOUNTER → 2022-01-04 08:01 | Outpatient (BNVA) | payer MEDICARE, MEDICAID, SELFPAY ==
[2021-09-05 11:15] VITALS: BP 111/72; BMI 24.9
== END ==
PROVIDERS: PCP Nurse Practitioner Family; Visit Provider Nurse Practitioner Psychiatric/Mental Health
DX: Z79.899 Other long term (current) drug therapy (principal)
CPT/HCPCS: 80053; 80061; 83036

== ENCOUNTER 2022-01-05 11:26 | Outpatient (CLI) | payer MEDICARE, MEDICAID, SELFPAY ==
[2021-09-05 11:15] VITALS: BP 111/72; BMI 24.9
--- NOTE | 2022-01-05 11:38 | CT_ITS ---
WS: [id number] CT ABDOMEN AND PELVIS WITH CONTRAST HISTORY: ABDOMINAL PAIN, RIGHT upper quadrant pain for 4 to 5 months. Nodular. TECHNIQUE: Imaging performed of the abdomen and pelvis with IV contrast. Single phase imaging of the abdomen. Coronal and sagittal reformats are submitted. All CT scans at [facility] use at [address] one of these dose optimization techniques: automated exposure control; mA and/or kV adjustment per patient size (includes targeted exams where dose is matched to clinical indication); or iterative re construction. IV CONTRAST: Omnipaque 300; 95 mL IV. Oral contrast: Yes. DLP: 991.43 mGy.cm COMPARISON: 11/23/2021 and 10/23/2020 Lower thorax: 4 mm nodule along the inferior LEFT major fissure. Typically this are benign nodules. N odule is unchanged. 1 No hiatal hernia. Liver/biliary system: Normal size with no intrahepatic dilatation. Gallbladder: Normal. No gallstones or wall thickening. No pericholecystic fluid. Pancreas: Normal size pancreas and pancreatic duct. No adjacent inflammation. Spleen: Normal size spleen. No mass or infarct. Adrenal glands: Mild thickening of the LEFT adrenal gland. Normal RIGHT adrenal gland. Right kidney: Small extrarenal pelvis. No solid mass. Left kidney: Normal. Aorta: Mild atherosclerosis with no aneurysm. Lymphadenopathy: None. Free fluid: None. GI tract: Moderate distention of the stomach. No small bowel obstruction. The appendix is normal. The re is moderate fecal retention throughout the RIGHT colon. Numerous diverticula beginning in the desc ending and sigmoid colon. There is mild wall thickening and submucosal thickening in the sigmoid colo n. No evidence for acute diverticulitis. Abdominal wall: Unremarkable abdominal wall. No hernia. Pelvis: No free fluid in the pelvis. Uterus is atrophic with calcifications. Ovaries are very small c aliber as expected. No adenopathy or free fluid. Bones: RIGHT lateral curvature of the lumbar spine with advanced degenerative changes in the disc. Va cuum disc phenomenon from the lumbar spine with significant osteochondrosis involving L2-L5. No acute fracture. CT/CT abdomen pelvis w con* [id number] IMPRESSION: 1. Normal appendix. 2. Negative gallbladder by CT. 3. Mild atherosclerosis aorta. 4. Diverticulosis without acute diverticulitis throughout the descending and s igmoid colon. 5. Fecal retention RIGHT colon.
[2022-01-05] MEDS: iohexol 300 mg/mL 100 mL Btl IV (13:26)
[2022-01-05] MEDS: iohexol 300 mg/mL 50 mL Btl PO (13:27)
== END 2022-01-05 11:27 | disposition home or self-care (01) ==
PROVIDERS: PCP Nurse Practitioner Family; Visit Provider Surgery
DX: R10.9 Unspecified abdominal pain (principal); I70.0 Atherosclerosis of aorta; K57.30 Diverticulosis of large intestine without perforation or abscess without bleeding
CPT/HCPCS: 74177

== ENCOUNTER → 2022-01-16 07:30 | Outpatient (BNVA) | payer MEDICARE, MEDICAID, SELFPAY ==
[2021-09-05 11:15] VITALS: BP 111/72; BMI 24.9
== END ==
PROVIDERS: PCP Nurse Practitioner Family; Visit Provider Nurse Practitioner Psychiatric/Mental Health
DX: F31.62 Bipolar disorder, current episode mixed, moderate (principal); F43.12 Post-traumatic stress disorder, chronic; F17.210 Nicotine dependence, cigarettes, uncomplicated; F40.01 Agoraphobia with panic disorder; G24.01 Drug induced subacute dyskinesia; Z79.899 Other long term (current) drug therapy
CPT/HCPCS: 99214

== ENCOUNTER 2022-01-16 12:51 | Outpatient (CLI) | payer MEDICARE, MEDICAID, SELFPAY ==
[2021-09-05 11:15] VITALS: BP 111/72; BMI 24.9
--- NOTE | 2022-01-16 13:41 | XR_ITS ---
WS: [id number] XR KUB [id number] REASON FOR EXAM: K59.00 - Constipation, unspecified FINDINGS: Unremarkable bowel gas pattern. No free air or retroperitoneal air. No urinary tract calculi identified. Moderately severe degenerative spondylosis in the lumbar spine. XR/XR KUB [id number] IMPRESSION: No acute abnormality.
== END 2022-01-16 12:52 | disposition home or self-care (01) ==
LOC: RAD 12:53
PROVIDERS: PCP Nurse Practitioner Family; Visit Provider Surgery
DX: K59.00 Constipation, unspecified (principal)
CPT/HCPCS: 74018

== ENCOUNTER → 2022-01-29 08:07 | Outpatient (BNVA) | payer MEDICARE, MEDICAID, SELFPAY ==
[2021-09-05 11:15] VITALS: BP 111/72; BMI 24.9
== END ==
PROVIDERS: PCP Nurse Practitioner Family; Visit Provider Nurse Practitioner Psychiatric/Mental Health
DX: J44.9 Chronic obstructive pulmonary disease, unspecified (principal); F17.210 Nicotine dependence, cigarettes, uncomplicated; G47.33 Obstructive sleep apnea (adult) (pediatric); J44.1 Chronic obstructive pulmonary disease with (acute) exacerbation; F31.62 Bipolar disorder, current episode mixed, moderate; F43.12 Post-traumatic stress disorder, chronic; F40.01 Agoraphobia with panic disorder; G24.01 Drug induced subacute dyskinesia; Z79.899 Other long term (current) drug therapy
CPT/HCPCS: 99214

== ENCOUNTER 2022-02-08 12:15 | Outpatient (CLI) | payer MEDICARE, MEDICAID, SELFPAY ==
[2021-09-05 11:15] VITALS: BP 111/72; BMI 24.9
[2022-02-08 12:55] VITALS: BP 122/80; BP 125/82
--- NOTE | 2022-02-08 13:11 | PFTS_ITS ---
Date of Study:02/08/22 Date of Dictation: MECHANICS: Forced vital capacity (FVC) is . Forced expiratory volume in one second (FEV1) is . FEV1/FVC is . FLOW VOLUME LOOP: . LUNG VOLUMES: Total lung capacity (TLC) is . Residual volume (RV) is . DIFFUSING CAPACITY FOR CARBON MONOXIDE: . INTERPRETATION: The pulmonary function tests are . mechanics and lung volumes. Gas exchange (DLCO) is . MTDD
== END 2022-02-08 12:16 | disposition home or self-care (01) ==
PROVIDERS: PCP Nurse Practitioner Family; Visit Provider Internal Medicine Critical Care Medicine
DX: J44.9 Chronic obstructive pulmonary disease, unspecified (principal)
CPT/HCPCS: 94618

== ENCOUNTER → 2022-02-13 09:41 | Outpatient (BNVA) | payer MEDICARE, MEDICAID, SELFPAY ==
[2022-02-12 09:09] VITALS: BP 111/72; BMI 24.9
== END ==
PROVIDERS: PCP Nurse Practitioner Family; Visit Provider Nurse Practitioner Family
DX: R35.0 Frequency of micturition (principal); E78.5 Hyperlipidemia, unspecified
CPT/HCPCS: 81000; 84443

== ENCOUNTER 2022-02-20 10:44 | Outpatient (CLI) | payer MEDICARE, MEDICAID, SELFPAY ==
[2022-02-12 09:09] VITALS: BP 111/72; BMI 24.9
--- NOTE | 2022-02-20 11:06 | MM_ITS ---
WS: [id number] VIEWS: MLO and CC views both breasts. 3D digital tomosynthesis is also included in this exam. Comparison made with prior exam of 04/22/2014, 05/09/2015, 06/11/2016, 06/23/2018, 07/31/2019, and 11/25/2020 .. Findings: There was no sign of mass, architectural distortion or suspicious calcification in either breast. He terogeneously dense MM/[place] [id number] Impression: BI-RADS: 2-Benign FOLLOW-UP: 1 Year Follow-up This mammogram was also analyzed by the Computer Aided Detection System R2 Imag e Scaffolder.
== END 2022-02-20 10:45 | disposition home or self-care (01) ==
LOC: RADSHAW 10:46
PROVIDERS: PCP Nurse Practitioner Family; Visit Provider Nurse Practitioner Family
DX: Z12.31 Encounter for screening mammogram for malignant neoplasm of breast (principal)
CPT/HCPCS: 77063; 77067

== ENCOUNTER → 2022-02-21 07:16 | Outpatient (BNVA) | payer MEDICARE, MEDICAID, SELFPAY ==
[2022-02-12 09:09] VITALS: BP 111/72; BMI 24.9
== END ==
PROVIDERS: PCP Nurse Practitioner Family; Visit Provider Nurse Practitioner Psychiatric/Mental Health
DX: F43.12 Post-traumatic stress disorder, chronic; F40.01 Agoraphobia with panic disorder; F17.210 Nicotine dependence, cigarettes, uncomplicated; G24.01 Drug induced subacute dyskinesia; Z79.899 Other long term (current) drug therapy; F31.62 Bipolar disorder, current episode mixed, moderate
CPT/HCPCS: 99214

== ENCOUNTER → 2022-03-26 10:25 | Outpatient (BNVA) | payer MEDICARE, MEDICAID, SELFPAY ==
[2022-02-12 09:09] VITALS: BP 111/72; BMI 24.9
== END ==
PROVIDERS: PCP Nurse Practitioner Family; Visit Provider Internal Medicine Critical Care Medicine
DX: J44.9 Chronic obstructive pulmonary disease, unspecified (principal); F17.210 Nicotine dependence, cigarettes, uncomplicated; G47.33 Obstructive sleep apnea (adult) (pediatric); K21.9 Gastro-esophageal reflux disease without esophagitis; E78.5 Hyperlipidemia, unspecified
CPT/HCPCS: 99214

== ENCOUNTER → 2022-03-27 07:17 | Outpatient (BNVA) | payer MEDICARE, MEDICAID, SELFPAY ==
[2022-02-12 09:09] VITALS: BP 111/72; BMI 24.9
== END ==
PROVIDERS: PCP Nurse Practitioner Family; Visit Provider Nurse Practitioner Psychiatric/Mental Health
DX: F31.62 Bipolar disorder, current episode mixed, moderate (principal); F43.12 Post-traumatic stress disorder, chronic; F40.01 Agoraphobia with panic disorder; F17.210 Nicotine dependence, cigarettes, uncomplicated; G24.01 Drug induced subacute dyskinesia; Z79.899 Other long term (current) drug therapy
CPT/HCPCS: 99214

== ENCOUNTER 2022-04-24 12:00 | Outpatient (CLI) | payer MEDICARE, MEDICAID, SELFPAY ==
[2022-02-12 09:09] VITALS: BP 111/72; BMI 24.9
== END 2022-04-24 12:01 | disposition home or self-care (01) ==
LOC: SLEEP 04-26 10:08
PROVIDERS: PCP Nurse Practitioner Family; Visit Provider Internal Medicine Critical Care Medicine
DX: G47.33 Obstructive sleep apnea (adult) (pediatric) (principal)
CPT/HCPCS: 94762

== ENCOUNTER → 2022-06-05 14:27 | Outpatient (BNVA) | payer MEDICARE, MEDICAID, SELFPAY ==
[2022-06-04 14:57] VITALS: BP 111/72; BMI 24.9
== END ==
PROVIDERS: PCP Nurse Practitioner Family; Visit Provider Nurse Practitioner Family
DX: M47.896 Other spondylosis, lumbar region (principal); M54.50 Low back pain, unspecified
CPT/HCPCS: 72100

== ENCOUNTER → 2022-07-02 10:53 | Outpatient (BNVA) | payer MEDICARE, MEDICAID, SELFPAY ==
[2022-06-04 14:57] VITALS: BP 111/72; BMI 24.9
== END ==
PROVIDERS: PCP Nurse Practitioner Family; Visit Provider Podiatrist Foot & Ankle Surgery
DX: L85.1 Acquired keratosis [keratoderma] palmaris et plantaris (principal); L60.3 Nail dystrophy
CPT/HCPCS: 99213

== ENCOUNTER 2022-07-25 20:00 | Outpatient (CLI) | payer MEDICARE, MEDICAID, SELFPAY ==
[2022-06-04 14:57] VITALS: BP 111/72; BMI 24.9
== END 2022-07-25 20:01 | disposition home or self-care (01) ==
LOC: SLEEP 07-31 08:01
PROVIDERS: PCP Nurse Practitioner Family; Visit Provider Internal Medicine Critical Care Medicine
DX: J44.9 Chronic obstructive pulmonary disease, unspecified (principal)
CPT/HCPCS: 94762

== ENCOUNTER → 2022-07-27 08:53 | Outpatient (BNVA) | payer MEDICARE, MEDICAID, SELFPAY ==
[2022-06-04 14:57] VITALS: BP 111/72; BMI 24.9
== END ==
PROVIDERS: PCP Nurse Practitioner Family; Visit Provider Internal Medicine Critical Care Medicine
DX: J44.9 Chronic obstructive pulmonary disease, unspecified (principal); F17.210 Nicotine dependence, cigarettes, uncomplicated; G47.33 Obstructive sleep apnea (adult) (pediatric)
CPT/HCPCS: 99214

== ENCOUNTER 2022-07-31 10:36 | Emergency (ER) | payer MEDICARE, MEDICAID, SELFPAY ==
[2022-06-04 14:57] VITALS: BP 111/72; BMI 24.9
[2022-07-31 10:10] VITALS: BP 152/86; PULSE 86; RESP 18; TEMP 36.5; O2SAT 96; BMI 28.2
[2022-07-31 10:31] VITALS: BP 125/70; PULSE 87; RESP 18; O2SAT 97
--- NOTE | 2022-07-31 10:56 | W.ED.BACK ---
HPI - Back Pain/Injury General: Chief Complaint: Back Pain/Injury Stated Complaint: left hip pain Source: patient Mode of arrival: ambulatory History of Present Illness: 59-year-old female presents the emergency room with complaints of back pain and being unable to walk. She tells me this began 3 months ago. At that time she had her hip evaluated x-ray was unremarkable. Subsequently she has had an MRI of her back she was supposed to be seen at the orthopedic clinic today to follow-up with the results. The MRI was done at [facility] in [place]. She canceled the appointment because she states yesterday she found herself unable to walk because she had transportation arranged but because she could not walk down the stairs they were not able to take. Ultimately she decided to call ambulance and come to the emergency room. MD elicited complaint: back pain and fall Pertinent past history: prior back pain Onset (ago): month(s) (3) Timing: intermittent Similar Symptoms Previously: Yes Location: lumbar spine Radiation: none Exacerbating factors: none Associated symptoms: Deny abdominal pain, chills, dysuria, fatigue, fever(s), nausea, urinary urgency or vomiting Review of Systems Const: Denies: fever(s), chills, body aches, change in appetite, fatigue or malaise ENMT: Denies: throat pain, ear or mastoid pain, nasal discharge or nasal congestion Card: Denies: chest pain, edema, dyspnea on exertion or orthopnea Resp: Denies: dyspnea, productive cough or non-productive cough GI: Denies: abdominal pain, nausea, vomiting, hematemesis, coffee ground emesis, diarrhea, constipation, bloating, hematochezia or melena : Denies: flank pain, difficulty voiding, dysuria, urinary frequency or urinary urgency Musc: Reports: back pain Skin/Breast: Denies: rash or pruritus PFSH ED PFSH: Medical History Anxiety and depression Bipolar 1 disorder, mixed, moderate Bipolar disorder, current episode mixed, unspecified Chronic arthritis Chronic GERD Chronic obstructive pulmonary disease, unspecified Chronic post-traumatic stress disorder Depression, major, recurrent, moderate Dyskinesia, tardive Drug induced Dyslipidemia Environmental and seasonal allergies Major depressive disorder, recurrent episode, moderate with anxious distress Panic disorder with agoraphobia Psychiatric care Unspecified hearing loss, left ear Surgical History H/O esophagogastroduodenoscopy (11/08/21) History of back surgery History of bilateral knee replacement History of colonoscopy within 10 yrs History of D&C History of laparoscopy History of sinus surgery History of tonsillectomy Family History Other Cancer Chronic obstructive pulmonary disease, unspecified Diabetes Heart disease Hyperlipidemia Hypertension Thyroid disease Social History Smoking and tobacco status: current every day smoker (1 ppd) cigarettes Packs smoked per day: 1 Years cigarettes smoked: 40 [ Other cigarette details: started at age 16] Quit status (tobacco): not considering quitting Smoking risk assessment/counseling performed?: Yes Alcohol intake: never Lives independently: Yes Household members: none Housing: Apartment Marital status: Single Number of children: 0 Number of grandchildren: 0 Highest education level completed: Some College, No Degree service: No Current occupational status: disabled Pets and animals: No History of recent travel: No Leisure activites: other Leisure activities details: watching television Sexually active: No Current gender identity: Female Sury/Catholic: Cheondoism Special sury needs: No Agree to transfusion: Yes Financial difficulty paying for basics: Not Very Hard Female Reproductive History: Para: 0 Spontaneous abortions: No Date of menopause: 05/03/04 Physical Exam Const: COMMON NORMALS: no acute distress GENERAL APPEARANCE: cooperative and comfortable ORIENTATION/CONSCIOUSNESS: Yes awake, Yes oriented to person, Yes oriented to place and Yes oriented to time HENMT: COMMON NORMALS: normocephalic, atraumatic and hearing grossly normal bilaterally HEAD & SCALP: normocephalic and atraumatic Resp: COMMON NORMALS: normal respiratory effort, No retractions, No use of accessory muscles and clear to auscultation bilaterally AUSCULTATION: clear to auscultation bilaterally Cardio: COMMON NORMALS: regular rate, regular rhythm and No murmurs present (Cardio) RATE: regular rate RHYTHM: regular rhythm GI: COMMON NORMALS: Soft to palpation and No hepatosplenomegaly present AUSCULTATION: Yes normoactive bowel sounds PALPATION: Yes Soft to palpation, No Tenderness to palpation present (GI), No Guarding due to palpation present (GI) and Yes No hepatosplenomegaly present Extremity: COMMON NORMALS: normal to inspection, capillary refill normal, no clubbing, cyanosis or edema, no calf tenderness and no pedal edema Neuro: SENSORIUM/ORIENTATION: Yes oriented to person, Yes oriented to place and Yes oriented to time Skin: COMMON NORMALS: no rashes or lesions noted GENERAL SKIN EXAM: no rashes or lesions noted Course Vital Signs: Vital signs: Vital Signs Temperature 97.7 F 07/31/22 10:10 Pulse Rate 89 07/31/22 14:07 Respiratory Rate 16 07/31/22 14:07 Blood Pressure 117/74 07/31/22 14:07 Pulse Oximetry 94 07/31/22 14:07 Oxygen Delivery Me thod 07/31/22 14:07 MDM - Back Pain/Injury Medical Decision Making No recent trauma. Neurologically lower extremities bilaterally intact vascular intact. Chronic back problems suspect patient will need to have. MRI at some point in the future. Patient had imaging done on 06 05 no significant change since then continues to have pain. She still has function lower extremities with able to ambulate we will discharge her home set up to see Dr. Stack's office. Avoid bending stooping twisting etc. Medical Records I reviewed the patient's medical records. Labs I reviewed the patient's lab results. : 07/31/22 12:17 07/31/22 12:17 Radiology Impressions Chest X-Ray 07/31/22 12:44 IMPRESSION: 1. No acute cardiopulmonary finding. Laboratory Results WBC 16.9 10^3/uL (4.0-10.0) H 07/31/22 12:17 RBC 4.66 10^6/uL (4.1-5.3) 07/31/22 12:17 Hgb 14.8 g/dL (11.5-15.3) 07/31/22 12:17 Hct 45.8 % (37.0-47.0) 07/31/22 12:17 MCV 98.3 fl (81-99) 07/31/22 12:17 MCH 31.8 pg (28.0-34.0) 07/31/22 12:17 MCHC 32.3 g/dL (30.0-36.0) 07/31/22 12:17 RDW 13.1 % (12.1-15.1) 07/31/22 12:17 Plt Count 261 10^3/cmm (130-400) 07/31/22 12:17 MPV 9.4 fL (7.4-10.4) 07/31/22 12:17 Neut % (Auto) 70.4 % 07/31/22 12:17 Lymph % (Auto) 19.3 % 07/31/22 12:17 [place] % (Auto) 8.7 % 07/31/22 12:17 Eos % (Auto) 0.5 % 07/31/22 12:17 Baso % (Auto) 0.4 % 07/31/22 12:17 Neut # (Auto) 11.88 10^3/uL (1.8-7.7) H 07/31/22 12:17 Lymph # (Auto) 3.3 10^3/uL (0.8-4.8) 07/31/22 12:17 [place] # (Auto) 1.5 10^3/uL (0.2-0.9) H 07/31/22 12:17 Eos # (Auto) 0.1 10^3/uL (0.0-0.8) 07/31/22 12:17 Baso # (Auto) 0.1 10^3/uL (0.0-0.1) 07/31/22 12:17 Nucleated RBC % (auto) 0 % 07/31/22 12:17 Nucleated RBCs # 0.0 /100WBC 07/31/22 12:17 Sodium 135 mmol/L (136-145) L 07/31/22 12:17 Potassium 3.4 mmol/L (3.5-5.1) L 07/31/22 12:17 Chloride 98 mmol/L (98-107) 07/31/22 12:17 Carbon Dioxide 27 mmol/L (22-29) 07/31/22 12:17 Anion Gap 13.4 (5-19) 07/31/22 12:17 BUN 11 mg/dL (8-23) 07/31/22 12:17 Creatinine 0.7 mg/dL (0.5-0.9) 07/31/22 12:17 GFR Calculation 83.2 mL/min (90-130) L 07/31/22 12:17 Glucose 89 mg/dL (65-115) 07/31/22 12:17 Calculated Osmolality 279 mOsm/kg (285-295) L 07/31/22 12:17 Calcium 9.1 mg/dL (8.5-10.5) 07/31/22 12:17 Total Bilirubin 0.5 mg/dL (0.15-1.2) 07/31/22 12:17 AST 20 U/L (0-32) 07/31/22 12:17 ALT 22 U/L (0-33) 07/31/22 12:17 Alkaline Phosphatase 92 U/L (35-105) 07/31/22 12:17 Total Protein 6.7 g/dL (6.6-8.7) 07/31/22 12:17 Albumin 3.9 g/dL (3.5-5.2) 07/31/22 12:17 Globulin 2.8 g/dL (1.3-4.6) 07/31/22 12:17 Urine Color Yellow (Yellow) 07/31/22 13:40 Urine Appearance Clear (CLEAR) 07/31/22 13:40 Urine pH 5 (5-7) 07/31/22 13:40 Ur Specific [place] 1.010 (1.005-1.030) 07/31/22 13:40 Urine Protein Neg (Negative) 07/31/22 13:40 Urine Glucose (UA) Norm (Normal) 07/31/22 13:40 Urine Ketones Negative (Negative) 07/31/22 13:40 Urine Blood Neg (Negative) 07/31/22 13:40 Urine Nitrate Negative (Negative) 07/31/22 13:40 Urine Bilirubin Neg (Negative) 07/31/22 13:40 Urine Urobilinogen Norm mg/dL (Negative) 07/31/22 13:40 Ur Leukocyte Esterase Negative (Negative) 07/31/22 13:40 Discharge Plan Discharge Patient Disposition: Home Clinical Impression: Chronic back pain Condition: Stable Prescriptions: No Action aspirin [Adult Low Dose Aspirin] 81 mg tablet,delayed release (DR/EC) 81 mg PO DAILY (DME) nebulizer accessories Kit See Rx Instructions .Route Qty: 1 0RF Rx Instructions: As directed (DME) compressor, for nebulizer Device See Rx Instructions .Route Qty: 1 0RF Rx Instructions: As directed Spiriva with HandiHaler 18 mcg capsule, w/inhalation device 1 cap INHALATION QDAY 30 Days Qty: 30 5RF Mucinex 1,200 mg tablet extended release 12hr 1,200 mg PO BID PRN (Reason: congestion) 30 Days Qty: 60 5RF montelukast [Singulair] 10 mg tablet 10 mg PO QDAY 30 Days Qty: 30 5RF lovastatin 20 mg tablet 20 mg PO QDAY 30 Days Qty: 30 5RF pantoprazole [Protonix] 40 mg tablet,delayed release (DR/EC) 40 mg PO DAILY Qty: 30 5RF fluticasone propionate 50 mcg/actuation spray,suspension 2 spray INTRANASAL QDAY PRN (Reason: allergy symptoms) prednisone 20 mg tablet 40 mg PO DAILY 5 Days Qty: 10 0RF levofloxacin 500 mg tablet 500 mg PO DAILY 5 Days Qty: 5 0RF albuterol sulfate 2.5 mg /3 mL (0.083 %) solution for nebulization 2.5 mg inhalation QID PRN (Reason: shortness of breath or wheezing) Qty: 75 5RF cyclobenzaprine 10 mg tablet 10 mg PO TID PRN (Reason: muscle spasm) Qty: 90 0RF gabapentin [Neurontin] 300 mg capsule 300 mg PO BID Qty: 60 2RF diphenhydramine HCl [Benadryl] 25 mg capsule 50 mg PO ONCE Qty: 2 0RF albuterol sulfate [ProAir HFA] 90 mcg/actuation HFA aerosol inhaler 2 puff INHALATION QID PRN (Reason: shortness of breath or wheezing) 30 Days Qty: 6.7 5RF hydroxyzine HCl 25 mg tablet 25 mg PO BID PRN (Reason: anxiety) Qty: 60 3RF lorazepam [Ativan] 1 mg tablet 1 mg PO TID PRN (Reason: anxiety) Qty: 90 2RF Lasix 20 mg tablet 20 mg PO .COMPLEX PRN (Reason: edema) Qty: 45 3RF Rx Instructions: 20 mg orally every other day and 40 mg on alternate days PRN for edema Tylenol Arthritis Pain 650 mg tablet extended release 650 mg PO Q12H trazodone 100 mg tablet 200 mg PO BEDTIME PRN (Reason: sleep) Abilify 5 mg tablet 5 mg PO QPM Symbicort 160-4.5 mcg/actuation HFA aerosol inhaler 2 puff inhalation BID melatonin 5 mg tablet 5 mg PO BEDTIME PRN (Reason: sleep) Ingrezza 40 mg capsule 40 mg PO QAM potassium chloride 10 mEq Capsule, Extended Release 10 meq PO DAILY CoQ-10 30 mg Capsule 30 mg PO DAILY Curcumin 95 % Powder 1 ea MISCELLANEOUS DAILY Discharge Orders: Discharge ED (Routine); Ordered 07/31/22 Ordered By: Khai Chung Other Ambulatory Orders: DME: Chuck (Order) Location: None Selected Ordered By: Khai CARPENTER: Chuck (Order) Location: None Selected Ordered By: Khai Chung Referrals: Tracey Shrestha FNP-C [Primary Care Provider] - Patient Instructions: Opioid Safety, Pain Management Coding Level of Care Code ED Manager Scientific for Satinder Solano
[2022-07-31 11:30] VITALS: BP 116/83; PULSE 85; RESP 18; O2SAT 94
[2022-07-31] MEDS: ketorolac 30 mg/mL INJ IM (11:59)
[2022-07-31] MEDS: dexamethasone 10 mg/mL INJ IM (11:59)
[2022-07-31 12:29] LABS: Basophils # 0.1 10^3/uL (0.0-0.1); Basophils % 0.4 %; Eosinophils # 0.1 10^3/uL (0.0-0.8); Eosinophils % 0.5 %; Hematocrit 45.8 % (37.0-47.0); Hemoglobin 14.8 g/dL (11.5-15.3); Lymphocytes # 3.3 10^3/uL (0.8-4.8); Lymphocytes % 19.3 %; Mean Corpuscular HGB Conc 32.3 g/dL (30.0-36.0); Mean Corpuscular Hemoglobin 31.8 pg (28.0-34.0); Mean Corpuscular Volume 98.3 fl (81-99); Mean Platelet Volume 9.4 fL (7.4-10.4); Monocytes # 1.5 10^3/uL (0.2-0.9); Monocytes % 8.7 %; Neutrophils # 11.88 10^3/uL (1.8-7.7); Neutrophils % 70.4 %; Nucleated Red Blood Cells % 0 %; Platelet Count 261 10^3/cmm (130-400); Red Blood Count 4.66 10^6/uL (4.1-5.3); Red Cell Distribution Width 13.1 % (12.1-15.1); White Blood Count 16.9 10^3/uL (4.0-10.0)
--- NOTE | 2022-07-31 12:44 | XR_ITS ---
WS: [id number] Exam: XR chest 1V portable [id number] Date/Time of Exam: 07/31/2022 12:44 PM Reason For Exam: dyspnea/cough Comparison 08/24/2020. The lungs are hyperinflated and clear. Normal cardiomediastinal silhouette. Bony structures are intac t. XR/XR chest 1V portable [id number] IMPRESSION: 1. No acute cardiopulmonary finding.
[2022-07-31 12:45] LABS: Alanine Aminotransferase 22 U/L (0-33); Albumin Level 3.9 g/dL (3.5-5.2); Alkaline Phosphatase 92 U/L (35-105); Aspartate Amino Transferase 20 U/L (0-32); Blood Urea Nitrogen 11 mg/dL (8-23); Calcium 9.1 mg/dL (8.5-10.5); Carbon Dioxide 27 mmol/L (22-29); Chloride 98 mmol/L (98-107); Globulin 2.8 g/dL (1.3-4.6); Glomerular Filtration Rate 83.2 mL/min (90-130); Glucose 89 mg/dL (65-115); Osmolality Calculated 279 mOsm/kg (285-295); Sodium 135 mmol/L (136-145); Total Bilirubin 0.5 mg/dL (0.15-1.2); Total Protein 6.7 g/dL (6.6-8.7)
[2022-07-31 12:47] LABS: Anion Gap 13.4 (5-19); Potassium 3.4 mmol/L (3.5-5.1)
[2022-07-31 13:45] VITALS: BP 129/87; PULSE 79; RESP 18; O2SAT 97
[2022-07-31 13:45] LABS: Add Urine Microscopic? NO; Charge for UA Resulting for Rev
[2022-07-31 13:51] LABS: Bilirubin Urine Neg (Negative); Blood Urine Neg (Negative); Glucose Urine UA Norm (Normal); Ketones Urine Negative (Negative); Leukocyte Esterase Urine Negative (Negative); Nitrate Urine Negative (Negative); Protein Urine Neg (Negative); Urine Appearance Clear (CLEAR); Urine Color Yellow (Yellow); Urobilinogen Urine Norm (Negative); pH Urine 5 (5-7)
[2022-07-31 14:07] VITALS: BP 117/74; PULSE 89; RESP 16; O2SAT 94
== END 2022-07-31 14:09 | disposition home or self-care (01) ==
PROVIDERS: Emergency Provider Family Medicine; PCP Nurse Practitioner Family
DX: M25.552 Pain in left hip (principal); M54.9 Dorsalgia, unspecified; G89.29 Other chronic pain; Z98.890 Other specified postprocedural states; R26.89 Other abnormalities of gait and mobility
CPT/HCPCS: 36415; 71045; 80053; 81003; 85025; 96372; 97161; 99284; J1100; J1885

== ENCOUNTER → 2022-08-07 10:39 | Outpatient (BNVA) | payer MEDICARE, MEDICAID, SELFPAY ==
[2022-06-04 14:57] VITALS: BP 111/72; BMI 24.9
== END ==
PROVIDERS: PCP Nurse Practitioner Family; Visit Provider Physician Assistant
DX: M51.37 Other intervertebral disc degeneration, lumbosacral region (principal); M47.816 Spondylosis without myelopathy or radiculopathy, lumbar region
CPT/HCPCS: 72110; 99203; 99204

== ENCOUNTER → 2022-08-27 12:35 | Outpatient (BNVA) | payer MEDICARE, MEDICAID, SELFPAY ==
[2022-06-04 14:57] VITALS: BP 111/72; BMI 24.9
== END ==
PROVIDERS: PCP Nurse Practitioner Family; Visit Provider Otolaryngology
DX: K14.6 Glossodynia (principal); F17.210 Nicotine dependence, cigarettes, uncomplicated
CPT/HCPCS: 99212; 99213

== ENCOUNTER → 2022-08-28 10:00 | Outpatient (BNVA) | payer MEDICARE, MEDICAID, SELFPAY ==
[2022-06-04 14:57] VITALS: BP 111/72; BMI 24.9
== END ==
PROVIDERS: PCP Nurse Practitioner Family; Visit Provider Anesthesiology Pain Medicine
DX: M51.37 Other intervertebral disc degeneration, lumbosacral region (principal); M47.816 Spondylosis without myelopathy or radiculopathy, lumbar region; M53.3 Sacrococcygeal disorders, not elsewhere classified; M79.604 Pain in right leg; M79.605 Pain in left leg; F17.210 Nicotine dependence, cigarettes, uncomplicated
CPT/HCPCS: 99205

== ENCOUNTER 2022-09-13 13:31 | Outpatient (CLI) | payer MEDICARE, MEDICAID, SELFPAY ==
[2022-06-04 14:57] VITALS: BP 111/72; BMI 24.9
--- NOTE | 2022-09-13 15:37 | PFTS_ITS ---
Date of Study: 09/13/2022 Date of Dictation: 09/13/2022 MECHANICS: Forced vital capacity (FVC) is normal. Forced expiratory volume in one second (FEV1) is moderately reduced. FEV1/FVC is reduced. There is no significant response to bronchodilators. FLOW VOLUME LOOP: Severe sloping of expiratory limb suggestive of airflow obstruction LUNG VOLUMES: Total lung capacity (TLC) is significantly increased. Residual volume (RV) is significantly increased. DIFFUSING CAPACITY FOR CARBON MONOXIDE: Normal . INTERPRETATION: The spirometry suggestive of moderate obstructive ventilatory disease. There is no significant response to bronchodilators. Lung volumes showed severe hyperinflation and air trapping. Gas transfer is normal. Constellation of findings consistent with obstructive ventilatory disease. Clinical correlation recommended. [facility]
[2022-09-13 15:40] VITALS: BP 115/70; BP 118/71
== END 2022-09-13 13:32 | disposition home or self-care (01) ==
LOC: RT 13:32
PROVIDERS: PCP Nurse Practitioner Family; Visit Provider Internal Medicine Critical Care Medicine
DX: J44.9 Chronic obstructive pulmonary disease, unspecified (principal)
CPT/HCPCS: 94060; 94618; 94726; 94729; J7613

== ENCOUNTER → 2022-09-19 13:07 | Outpatient (BNVA) | payer MEDICARE, MEDICAID, SELFPAY ==
[2022-06-04 14:57] VITALS: BP 111/72; BMI 24.9
== END ==
PROVIDERS: PCP Nurse Practitioner Family; Visit Provider Anesthesiology Pain Medicine
DX: M47.816 Spondylosis without myelopathy or radiculopathy, lumbar region (principal); F17.210 Nicotine dependence, cigarettes, uncomplicated
CPT/HCPCS: 64493; 64494; 64495; J3490

== ENCOUNTER → 2022-09-25 09:41 | Outpatient (BNVA) | payer MEDICARE, MEDICAID, SELFPAY ==
[2022-06-04 14:57] VITALS: BP 111/72; BMI 24.9
== END ==
PROVIDERS: PCP Nurse Practitioner Family; Visit Provider Physician Assistant
DX: M47.816 Spondylosis without myelopathy or radiculopathy, lumbar region (principal); M53.3 Sacrococcygeal disorders, not elsewhere classified
CPT/HCPCS: 99213

== ENCOUNTER → 2022-10-04 09:19 | Outpatient (BNVA) | payer MEDICARE, MEDICAID, SELFPAY ==
[2022-06-04 14:57] VITALS: BP 111/72; BMI 24.9
== END ==
PROVIDERS: PCP Nurse Practitioner Family; Visit Provider Anesthesiology Pain Medicine
DX: M51.37 Other intervertebral disc degeneration, lumbosacral region (principal); M47.816 Spondylosis without myelopathy or radiculopathy, lumbar region; M53.3 Sacrococcygeal disorders, not elsewhere classified; M79.604 Pain in right leg; M79.605 Pain in left leg; F17.210 Nicotine dependence, cigarettes, uncomplicated
CPT/HCPCS: 99214

== ENCOUNTER 2022-10-09 14:32 | Emergency (ER) | payer MEDICARE, MEDICAID, SELFPAY ==
[2022-06-04 14:57] VITALS: BP 111/72; BMI 24.9
[2022-10-09] VITALS (13 sets, daily range): BP systolic 112–150; BP diastolic 77–101; PULSE 78–99; RESP 18–22; TEMP 36.7–36.8; O2SAT 87–99; BMI 27.6
--- NOTE | 2022-10-09 14:35 | W.ED.SOB ---
HPI - SOB/Dyspnea General: Chief Complaint: Shortness of Breath/Dyspnea Stated Complaint: SOB Time Seen by Provider: 10/09/22 14:35 History of Present Illness: HPI Narrative: Ms Garcia is a 67-year-old lady with significant past medical history of COPD, MAE on BiPAP at night presenting to the emergency department due to concern of respiratory symptoms. She reports first noticing symptoms being more persistent after a pulmonary function test approximately 6 weeks ago. She does get mild relief from her home treatments though overall has been feeling worse. Also has noticed some bilateral lower extremity edema. Was seen in clinic today for mental health follow-up and referred to the emergency department for further evaluation due to low oxygen levels. Room air oxygen level 90% and improvement with supplemental oxygen. Does note that wearing her BiPAP during the day when she is short of breath does help. Intensity symptoms is moderate. Worse with exertion. Course has worsened. Denies associated infectious symptoms. No other specific changes in health, exacerbating, or alleviating factors identified. Onset (ago): week(s) Context: allergen exposure Timing: progressively worsening Severity: moderate Exacerbating factors: lying flat and exertion Known history of: COPD Associated symptoms: Reports cough, nausea and other Review of Systems General: Reports: 10 or more systems reviewed and unremarkable except in HPI and below GI: Reports: nausea PFSH ED PFSH: Medical History Anxiety and depression Bipolar 1 disorder, mixed, moderate Bipolar disorder, current episode mixed, unspecified Chronic arthritis Chronic GERD Chronic obstructive pulmonary disease, unspecified Chronic post-traumatic stress disorder Depression, major, recurrent, moderate Dyskinesia, tardive Drug induced Dyslipidemia Environmental and seasonal allergies Major depressive disorder, recurrent episode, moderate with anxious distress Panic disorder with agoraphobia Psychiatric care Unspecified hearing loss, left ear Surgical History H/O esophagogastroduodenoscopy (11/08/21) History of back surgery History of bilateral knee replacement History of colonoscopy within 10 yrs History of D&C History of laparoscopy History of sinus surgery History of tonsillectomy Family History Other Cancer Chronic obstructive pulmonary disease, unspecified Diabetes Heart disease Hyperlipidemia Hypertension Thyroid disease Social History Smoking and tobacco status: current every day smoker (1 ppd) cigarettes Packs smoked per day: 1 Years cigarettes smoked: 40 [ Other cigarette details: started at age 16] Quit status (tobacco): not considering quitting Smoking risk assessment/counseling performed?: Yes Alcohol intake: never Lives independently: Yes Household members: none Housing: Apartment Marital status: Single Number of children: 0 Number of grandchildren: 0 Highest education level completed: Some College, No Degree service: No Current occupational status: disabled Pets and animals: No History of recent travel: No Leisure activites: other Leisure activities details: watching television Sexually active: No Current gender identity: Female Sury/Yazidism: Druze Special sury needs: No Agree to transfusion: Yes Financial difficulty paying for basics: Not Very Hard Female Reproductive History: Para: 0 Spontaneous abortions: No Date of menopause: 05/03/04 Physical Exam Const: COMMON NORMALS: alert GENERAL APPEARANCE: cooperative and well developed HENMT: COMMON NORMALS: normocephalic and atraumatic HEAD & SCALP: normocephalic and atraumatic Eye: COMMON NORMALS: conjunctivae normal CONJUNCTIVA: Yes conjunctivae normal SCLERA: sclerae normal Neck/C-Spine: COMMON NORMALS: supple GENERAL: Yes trachea midline Resp: EFFORT & INSPECTION: Yes able to speak in complete sentences and Yes tachypneic AUSCULTATION: wheezes (Mild scattered worse on the right) Cardio: COMMON NORMALS: regular rate and regular rhythm RATE: regular rate RHYTHM: regular rhythm GI: COMMON NORMALS: Soft to palpation PALPATION: Yes Soft to palpation and No Tenderness to palpation present (GI) PERCUSSION: normal to percussion Extremity: GENERAL: Yes normal exam except as noted and Yes edema (1+ symmetric bilateral to mid calf without associated significant tendernes) Neuro: COMMON NORMALS: moves all extremities SENSORIUM/ORIENTATION: Yes alert and No Orientation impaired Psych: COMMON NORMALS: mental status grossly normal and Normal thought process present THOUGHT PROCESS: Normal thought process present Course Vital Signs: Vital signs: Vital Signs Temperature 98.1 F 10/09/22 23:36 Pulse Rate 78 10/09/22 23:36 Respiratory Rate 22 H 10/09/22 23:36 Blood Pressure 149/89 10/09/22 23:36 Pulse Oximetry 97 10/09/22 23:36 Oxygen Delivery Me thod 10/09/22 23:00 Oxygen Flow Rate 2 10/09/22 23:00 MDM - SOB/Dyspnea Medical Decision Making 67-year-old lady presenting with shortness of breath. Exam as above. EKG notable for sinus rhythm, no STEMI. Labs with minimal leukocytosis, normal hemoglobin. No significant metabolic derangements. 2-hour delta troponin is negative. Viral studies negative. Chest x-ray with no lobar consolidation or pneumothorax. Patient feels significantly improved with steroids and RT treatment. I discussed various disposition options with the patient and she prefers to go home. Therefore I will order home oxygen. Most likely etiology of patient's symptoms is exacerbation of COPD. The results of ED evaluation were discussed with the patient including prescriptions and/or symptomatic cares (if applicable) including appropriate and responsible use, followup plan, and return precautions. The patient verbalized understanding and felt safe for discharge. Medical Records I reviewed the patient's medical records. Lab Data I reviewed the patient's lab results. 10/09/22 14:21 10/09/22 14:21 Labs/Radiology: Radiology Impressions Chest X-Ray 10/09/22 14:44 Impression: Hyperinflation. Laboratory Results WBC 10.7 10^3/uL (4.0-10.0) H 10/09/22 14:21 RBC 4.51 10^6/uL (4.1-5.3) 10/09/22 14:21 Hgb 14.1 g/dL (11.5-15.3) 10/09/22 14:21 Hct 42.6 % (37.0-47.0) 10/09/22 14:21 MCV 94.5 fl (81-99) 10/09/22 14:21 MCH 31.3 pg (28.0-34.0) 10/09/22 14:21 MCHC 33.1 g/dL (30.0-36.0) 10/09/22 14:21 RDW 12.6 % (12.1-15.1) 10/09/22 14:21 Plt Count 354 10^3/cmm (130-400) 10/09/22 14:21 MPV 9.4 fL (7.4-10.4) 10/09/22 14:21 Neut % (Auto) 63.0 % 10/09/22 14:21 Lymph % (Auto) 27.1 % 10/09/22 14:21 Boyle % (Auto) 6.8 % 10/09/22 14:21 Eos % (Auto) 1.9 % 10/09/22 14:21 Baso % (Auto) 0.7 % 10/09/22 14:21 Neut # (Auto) 6.76 10^3/uL (1.8-7.7) 10/09/22 14:21 Lymph # (Auto) 2.9 10^3/uL (0.8-4.8) 10/09/22 14:21 Boyle # (Auto) 0.7 10^3/uL (0.2-0.9) 10/09/22 14:21 Eos # (Auto) 0.2 10^3/uL (0.0-0.8) 10/09/22 14:21 Baso # (Auto) 0.1 10^3/uL (0.0-0.1) 10/09/22 14:21 Nucleated RBC % (auto) 0 % 10/09/22 14:21 Nucleated RBCs # 0.0 /100WBC 10/09/22 14:21 Sodium 138 mmol/L (136-145) 10/09/22 14:21 Potassium 3.8 mmol/L (3.5-5.1) 10/09/22 14:21 Chloride 102 mmol/L (98-107) 10/09/22 14:21 Carbon Dioxide 26 mmol/L (22-29) 10/09/22 14:21 Anion Gap 13.8 (5-19) 10/09/22 14:21 BUN 10 mg/dL (8-23) 10/09/22 14:21 Creatinine 0.5 mg/dL (0.5-0.9) 10/09/22 14:21 GFR Calculation 122.7 mL/min (90-130) 10/09/22 14:21 Glucose 91 mg/dL (65-115) 10/09/22 14:21 Calculated Osmolality 285 mOsm/kg (285-295) 10/09/22 14:21 Lactic Acid 0.8 mmol/L (0.5-2.2) 10/09/22 15:17 Calcium 9.1 mg/dL (8.5-10.5) 10/09/22 14:21 Total Bilirubin 0.2 mg/dL (0.15-1.2) 10/09/22 14:21 AST 19 U/L (0-32) 10/09/22 14:21 ALT 21 U/L (0-33) 10/09/22 14:21 Alkaline Phosphatase 140 U/L (35-105) H 10/09/22 14:21 Troponin T Baseline 15 ng/L (0-10) H 10/09/22 14:21 Troponin T 120 Minute 13.54 ng/L (0-10) H 10/09/22 16:21 Delta Troponin T -1.46 ABS# (0-10) L 10/09/22 16:21 NT-Pro-B Natriuret Pep 30 pg/mL (0-125) 10/09/22 14:21 Total Protein 6.8 g/dL (6.6-8.7) 10/09/22 14:21 Albumin 3.9 g/dL (3.5-5.2) 10/09/22 14:21 Globulin 2.9 g/dL (1.3-4.6) 10/09/22 14:21 Nasal Influ A H1 2008 PCR Not detected (NOT DETECT) 10/09/22 15:55 Adenovirus (PCR) Not detected (NOT DETECT) 10/09/22 15:55 C. pneumoniae DNA (PCR) Not detected (NOT DETECT) 10/09/22 15:55 Coronavirus 229E (PCR) Not detected (NOT DETECT) 10/09/22 15:55 Human Metapneumovir PCR Not detected (NOT DETECT) 10/09/22 15:55 Influenza A (H1) PCR Not detected (NOT DETECT) 10/09/22 15:55 Influenza A (H3) PCR Not detected (NOT DETECT) 10/09/22 15:55 Influenza Type A (PCR) Not detected (NOT DETECT) 10/09/22 15:55 Influenza Type B (PCR) Not detected (NOT DETECT) 10/09/22 15:55 M. pneumoniae (PCR) Not detected (NOT DETECT) 10/09/22 15:55 Parainfluenza 1 (PCR) Not detected (NOT DETECT) 10/09/22 15:55 Parainfluenza 2 (PCR) Not detected (NOT DETECT) 10/09/22 15:55 Parainfluenza 3 (PCR) Not detected (NOT DETECT) 10/09/22 15:55 Parainfluenza 4 (PCR) Not detected (NOT DETECT) 10/09/22 15:55 RSV Type A (PCR) Not detected (NOT DETECT) 10/09/22 15:55 RSV Type B (PCR) Not detected (NOT DETECT) 10/09/22 15:55 Entero/Rhino (PCR) Not detected (NOT DETECT) 10/09/22 15:55 SARS-CoV-2 (PCR) Not detected (NOT DETECT) 10/09/22 15:55 Discharge Plan Discharge Patient Disposition: Home Clinical Impression: Acute exacerbation of chronic obstructive pulmonary disease (COPD) Condition: Stable Prescriptions: No Action aspirin [Adult Low Dose Aspirin] 81 mg tablet,delayed release (DR/EC) 81 mg PO DAILY (DME) nebulizer accessories Kit See Rx Instructions .Route Qty: 1 0RF Rx Instructions: As directed (DME) compressor, for nebulizer Device See Rx Instructions .Route Qty: 1 0RF Rx Instructions: As directed Mucinex 1,200 mg tablet extended release 12hr 1,200 mg PO BID PRN (Reason: congestion) 30 Days Qty: 60 5RF hydroxyzine HCl 25 mg tablet 25 mg PO BID PRN (Reason: anxiety) Qty: 60 3RF (DME) Wheelchair See Rx Instructions .Route .MEDSUPPLY Qty: 1 0RF Rx Instructions: As directed fluticasone propionate 50 mcg/actuation spray,suspension 2 spray INTRANASAL QDAY PRN (Reason: allergy symptoms) albuterol sulfate 2.5 mg /3 mL (0.083 %) solution for nebulization 2.5 mg inhalation QID PRN (Reason: shortness of breath or wheezing) Qty: 75 5RF gabapentin [Neurontin] 300 mg capsule 300 mg PO BID Qty: 60 2RF lovastatin 20 mg tablet 20 mg PO QDAY 30 Days Qty: 30 5RF (DME) oxygen concentrator with portable See Rx Instructions .Route .MEDSUPPLY Qty: 1 0RF Rx Instructions: as directed, 2L nasal cannula, oxygen concentrator with portable concentrator albuterol sulfate [ProAir HFA] 90 mcg/actuation HFA aerosol inhaler 2 puff INHALATION QID PRN (Reason: shortness of breath or wheezing) 30 Days Qty: 6.7 5RF pantoprazole [Protonix] 40 mg tablet,delayed release (DR/EC) 40 mg PO DAILY Qty: 30 5RF Spiriva with HandiHaler 18 mcg capsule, w/inhalation device 1 cap INHALATION QDAY 30 Days Qty: 30 5RF montelukast [Singulair] 10 mg tablet 10 mg PO QDAY 30 Days Qty: 30 5RF melatonin 5 mg tablet 5 mg PO BEDTIME PRN (Reason: sleep) Qty: 30 3RF budesonide-formoterol [Symbicort] 160-4.5 mcg/actuation HFA aerosol inhaler 2 puff inhalation BID potassium chloride 10 mEq Capsule, Extended Release 10 meq PO DAILY coenzyme Q10 [CoQ-10] 30 mg Capsule 30 mg PO DAILY Shaklee Multi Vitamin 1 tab PO DAILY Tylenol Arthritis Pain 650 mg tablet extended release 1,300 mg PO BID PRN (Reason: pain) diphenhydramine HCl [Benadryl] 25 mg capsule 50 mg PO DAILY PRN (Reason: Allergy Symptoms) Abilify 5 mg tablet 5 mg PO QPM turmeric 400 mg Capsule 400 mg PO DAILY trazodone 100 mg tablet 100 - 200 mg PO BEDTIME PRN (Reason: sleep) Lasix 20 mg tablet 20 mg PO DAILY Ingrezza 40 mg capsule 40 mg PO DAILY Discharge Orders: Discharge ED (Routine); Ordered 10/09/22 Ordered By: Kartik Paiz Other Ambulatory Orders: DME: Oxygen (Order) Location: None Selected Ordered By: Kartik Paiz Referrals: Tracey Shrestha FNP-C [Primary Care Provider] - Discharge Diet: Usual diet Discharge Activity: Increase activity as tolerated Patient Instructions: Using Oxygen at Home (ED), COPD (Chronic Obstructive Pulmonary Disease) (ED) Activity Restrictions/Additional Instructions: Thank you for visiting the emergency department. You were seen and evaluated for shortness of breath and new oxygen requirement. The most likely cause of your symptoms is exacerbation of underlying lung disease. After discussion you prefer outpatient treatment which I feel is reasonable, you will be discharged on home oxygen. I will prescribe steroids and antibiotics. Please also use your albuterol metered-dose inhaler 2 puffs every 4 hours for 24 hours followed by 2 puffs every 6 hours for 24 hours followed by 2 puffs every 8 hours for 24 hours and then return to the normal schedule. If using a nebulizer machine maintain the same schedule however use 1 2.5 mg treatment instead of 2 puffs each time. Please follow-up with your primary care provider and donor services technician. Return to the emergency department for worsening symptoms, chest pain, oxygen saturation less than 90% despite home oxygen use, or anything else that you are concerned about a feel needs emergency department evaluation. Coding Level of Care Code ED Maintenance Supervisor for Chg Fwd Exam Comprehensive
--- NOTE | 2022-10-09 14:44 | XR_ITS ---
WS: [id number] Portable AP upright chest, 10/09/2022 Clinical Data: sob, wheezing Comparison: Portable chest, 07/31/2022. Findings: No nodules, masses or effusions are seen. The heart is normal. The pulmonary vascularity is not increased. No pneumonia or pneumothorax is seen. The diaphragms are flattened. XR/XR chest 1V portable [id number] Impression: Hyperinflation.
[2022-10-09 15:03] LABS: Basophils # 0.1 10^3/uL (0.0-0.1); Basophils % 0.7 %; Eosinophils # 0.2 10^3/uL (0.0-0.8); Eosinophils % 1.9 %; Hematocrit 42.6 % (37.0-47.0); Hemoglobin 14.1 g/dL (11.5-15.3); Lymphocytes # 2.9 10^3/uL (0.8-4.8); Lymphocytes % 27.1 %; Mean Corpuscular HGB Conc 33.1 g/dL (30.0-36.0); Mean Corpuscular Hemoglobin 31.3 pg (28.0-34.0); Mean Corpuscular Volume 94.5 fl (81-99); Mean Platelet Volume 9.4 fL (7.4-10.4); Monocytes # 0.7 10^3/uL (0.2-0.9); Monocytes % 6.8 %; Neutrophils # 6.76 10^3/uL (1.8-7.7); Nucleated Red Blood Cells % 0 %; Platelet Count 354 10^3/cmm (130-400); Red Blood Count 4.51 10^6/uL (4.1-5.3); Red Cell Distribution Width 12.6 % (12.1-15.1); White Blood Count 10.7 10^3/uL (4.0-10.0)
[2022-10-09] MEDS: ipratropium-albuterol 3 mL Neb INHALATION (15:04)
[2022-10-09 15:32] LABS: Troponin(5th) Baseline 15 ng/L (0-10)
[2022-10-09 15:40] LABS: Alanine Aminotransferase 21 U/L (0-33); Albumin Level 3.9 g/dL (3.5-5.2); Alkaline Phosphatase 140 U/L (35-105); Aspartate Amino Transferase 19 U/L (0-32); Blood Urea Nitrogen 10 mg/dL (8-23); Calcium 9.1 mg/dL (8.5-10.5); Carbon Dioxide 26 mmol/L (22-29); Chloride 102 mmol/L (98-107); Globulin 2.9 g/dL (1.3-4.6); Glomerular Filtration Rate 122.7 mL/min (90-130); Glucose 91 mg/dL (65-115); NT Pro B Type Natriuretic Pept 30 pg/mL (0-125); Osmolality Calculated 285 mOsm/kg (285-295); Sodium 138 mmol/L (136-145); Total Bilirubin 0.2 mg/dL (0.15-1.2); Total Protein 6.8 g/dL (6.6-8.7)
[2022-10-09 15:44] LABS: Anion Gap 13.8 (5-19); Potassium 3.8 mmol/L (3.5-5.1)
--- NOTE | 2022-10-09 15:51 | ECG_ITS ---
[facility] Test Date: 2022-10-09 Pat Name: Tika Garcia Department: Room: Gender: Female Human Resource Internship: : 1955 Requested By: Kartik Paiz Order Number: [id number] Lukasz MD: Merlyn Fung M.D. Measurements Intervals [place] Rate: 87 P: 72 CA: 178 QRS: -73 QRSD: 89 T: 66 QT: 368 QTc: 444 Interpretive Statements SINUS RHYTHM LEFT AXIS DEVIATION [QRS AXIS < -30] POSSIBLE ANTERIOR MYOCARDIAL INFARCTION , OF INDETERMINATE AGE [30 ms Q WAVE IN V3/V4, OR R < 0.2 mV IN V4] Compared to ECG 07/17/2018 13:15:54 Left-axis deviation now present Myocardial infarct finding now present Indeterminate axis no longer present Left posterior fascicular block no longer present Electronically Signed On 10-09-2022 18:48:54 UTILIZATION MANAGEMENT RN by Merlyn Fung M.D. [id number]
[2022-10-09 16:06] LABS: Lactic Sepsis W/Reflex 0.8 mmol/L (0.5-2.2)
--- NOTE | 2022-10-09 16:38 | ECG_ITS ---
[facility] Test Date: 2022-10-09 Pat Name: Tika Garcia Department: Room: Gender: Female Receivable Manager: : 1955 Requested By: Kartik Paiz Order Number: [id number] Lukasz MD: Merlyn Fung M.D. Measurements Intervals [place] Rate: 89 P: 62 SD: 183 QRS: -77 QRSD: 89 T: 60 QT: 364 QTc: 444 Interpretive Statements SINUS RHYTHM LOW QRS VOLTAGE IN PRECORDIAL LEADS [QRS DEFLECTION < 1.0 mV IN CHEST LEADS] LEFT ANTERIOR FASCICULAR BLOCK [QRS AXIS <= -45, QR IN I, RS IN II] POSSIBLE ANTERIOR MYOCARDIAL INFARCTION , OF INDETERMINATE AGE Compared to ECG 10/09/2022 15:51:17 Low QRS voltage now present Left anterior fascicular block now present Left-axis deviation no longer present Myocardial infarct finding still present Electronically Signed On 10-09-2022 18:51:37 TECHNOLOGY PROJECT MANAGER by Merlyn Fung M.D. [id number]
[2022-10-09 17:28] LABS: Troponin 5 2HR 13.54 ng/L (0-10)
[2022-10-09 17:29] LABS: Troponin 5 2HR Delta -1.46 ABS# (0-10)
[2022-10-09 17:55] LABS: Adenovirus Not Detected (NOT DETECT); Chlamydia Pneumoniae Not Detected (NOT DETECT); Coronavirus 229E,HKU1,NL63,OC4 Not Detected (NOT DETECT); Human Metapneumovirus Not Detected (NOT DETECT); Human Rhinovirus/Enterovirus Not Detected (NOT DETECT); Influenza A Not Detected (NOT DETECT); Influenza A H1 Not Detected (NOT DETECT); Influenza A H1-2009 Not Detected (NOT DETECT); Influenza A H3 Not Detected (NOT DETECT); Influenza B Not Detected (NOT DETECT); Mycoplasma Pneumoniae Not Detected (NOT DETECT); Parainfluenza Virus Type 1 Not Detected (NOT DETECT); Parainfluenza Virus Type 2 Not Detected (NOT DETECT); Parainfluenza Virus Type 3 Not Detected (NOT DETECT); Parainfluenza Virus Type 4 Not Detected (NOT DETECT); Respiratory Syncytial Virus A Not Detected (NOT DETECT); Respiratory Syncytial Virus B Not Detected (NOT DETECT); SARS-COV-2 Not Detected (NOT DETECT)
[2022-10-09] MEDS: doxycycline 100 mg Tablet PO (19:07)
== END 2022-10-09 23:39 | disposition home or self-care (01) ==
PROVIDERS: Emergency Provider Emergency Medicine; PCP Nurse Practitioner Family
DX: J44.1 Chronic obstructive pulmonary disease with (acute) exacerbation (principal); Z79.82 Long term (current) use of aspirin; Z20.822 Contact with and (suspected) exposure to COVID-19; F17.210 Nicotine dependence, cigarettes, uncomplicated; E78.5 Hyperlipidemia, unspecified
CPT/HCPCS: 36415; 71045; 80053; 83605; 83880; 84484; 85025; 87486; 87581; 87633; 93005; 94640; 96374; 99285; J2930

== ENCOUNTER → 2022-10-23 10:57 | Outpatient (BNVA) | payer MEDICARE, MEDICAID, SELFPAY ==
[2022-06-04 14:57] VITALS: BP 111/72; BMI 24.9
== END ==
PROVIDERS: PCP Nurse Practitioner Family; Visit Provider Otolaryngology
DX: K14.6 Glossodynia (principal); R13.10 Dysphagia, unspecified; J39.2 Other diseases of pharynx
CPT/HCPCS: 31575; 99213

== ENCOUNTER → 2022-11-06 11:22 | Outpatient (BNVA) | payer MEDICARE, MEDICAID, SELFPAY ==
[2022-06-04 14:57] VITALS: BP 111/72; BMI 24.9
== END ==
PROVIDERS: PCP Nurse Practitioner Family; Visit Provider Anesthesiology Pain Medicine
DX: G89.29 Other chronic pain (principal); M51.37 Other intervertebral disc degeneration, lumbosacral region; M47.816 Spondylosis without myelopathy or radiculopathy, lumbar region; M53.3 Sacrococcygeal disorders, not elsewhere classified; M79.604 Pain in right leg; M79.605 Pain in left leg; M54.2 Cervicalgia
CPT/HCPCS: 72050; 99214

== ENCOUNTER → 2022-11-08 09:56 | Outpatient (BNVA) | payer MEDICARE, MEDICAID, SELFPAY ==
[2022-06-04 14:57] VITALS: BP 111/72; BMI 24.9
== END ==
PROVIDERS: PCP Nurse Practitioner Family; Visit Provider Internal Medicine Pulmonary Disease
DX: J45.909 Unspecified asthma, uncomplicated (principal); R22.43 Localized swelling, mass and lump, lower limb, bilateral; F17.210 Nicotine dependence, cigarettes, uncomplicated; G47.33 Obstructive sleep apnea (adult) (pediatric); J43.2 Centrilobular emphysema
CPT/HCPCS: 36415; 80048; 82785; 83735; 83880; 86003; 99214

== ENCOUNTER 2022-11-09 23:12 | Emergency (ER) | payer MEDICARE, MEDICAID, SELFPAY ==
[2022-06-04 14:57] VITALS: BP 111/72; BMI 24.9
[2022-11-09 23:20] VITALS: BP 137/86; PULSE 99; RESP 18; TEMP 36.6; O2SAT 98; BMI 28.4
--- NOTE | 2022-11-10 | XRR_ITS ---
PROCEDURE INFORMATION: Exam: XR Chest Exam date and time: 11/10/2022 12:21 AM Age: 67 years old Clinical indication: Shortness of breath; Additional info: SOB TECHNIQUE: Imaging protocol: Radiologic exam of the chest. Views: 1 view. COMPARISON: CR XR chest 1V portable [id number] 10/09/2022 3:03 PM FINDINGS: Lungs: There is a background of emphysema and mild pulmonary fibrosis. Few linear opacities are seen in the left lower hemithorax possibly representing mild atelectasis. Pleural spaces: Unremarkable. No pleural effusion. No pneumothorax. Heart/Mediastinum: Unremarkable. No cardiomegaly. Bones/joints: Unremarkable. XR/XR chest 1V portable [id number] IMPRESSION: 1. There is a background of emphysema and pulmonary fibrosis. 2. Linear opacities in the left lower hemithorax likely represents atelectasis.
--- NOTE | 2022-11-10 00:02 | ECG_ITS ---
[facility] Test Date: 2022-11-09 Pat Name: Tika Garcia Department: Room: Gender: Female Disaster Director: : 1955 Requested By: Venkata Ly Order Number: [id number] Lukasz MD: Becky Bro M.D. Measurements Intervals [place] Rate: 91 P: 148 NV: 169 QRS: 138 QRSD: 86 T: 150 QT: 348 QTc: 430 Interpretive Statements SINUS RHYTHM ARM LEADS REVERSED [INVERTED P AND QRS IN I] Compared to ECG 10/09/2022 16:38:44 Left anterior fascicular block no longer present Myocardial infarct finding no longer present Electronically Signed On 11-10-2022 21:51:49 STRUCTURES ASSEMBLER by Becky Bro M.D. [email or web address].[employer]/store/[id number]
[2022-11-10] MEDS: ondansetron 2 mg/ML SDV 2 mL 4 MG IVP (00:11)
[2022-11-10] MEDS: FUROsemide 10 mg/mL SDV 10mL 60 MG IVP (00:11)
[2022-11-10] MEDS: morphine 4 mg/mL SDV 1 mL IVP ×3 (00:12→02:55)
[2022-11-10 01:17] LABS: Basophils # 0.1 10^3/uL (0.0-0.1); Basophils % 0.4 %; Eosinophils # 0.3 10^3/uL (0.0-0.8); Eosinophils % 2.4 %; Hematocrit 44.4 % (37.0-47.0); Hemoglobin 13.8 g/dL (11.5-15.3); Lymphocytes # 3.1 10^3/uL (0.8-4.8); Lymphocytes % 25.7 %; Mean Corpuscular HGB Conc 31.1 g/dL (30.0-36.0); Mean Corpuscular Hemoglobin 30.1 pg (28.0-34.0); Mean Corpuscular Volume 96.7 fl (81-99); Mean Platelet Volume 8.9 fL (7.4-10.4); Monocytes # 0.7 10^3/uL (0.2-0.9); Monocytes % 6.1 %; Neutrophils # 7.74 10^3/uL (1.8-7.7); Neutrophils % 65.1 %; Nucleated Red Blood Cells % 0 %; Platelet Count 414 10^3/cmm (130-400); Red Blood Count 4.59 10^6/uL (4.1-5.3); Red Cell Distribution Width 12.9 % (12.1-15.1); White Blood Count 11.9 10^3/uL (4.0-10.0)
[2022-11-10 01:39] LABS: Troponin(5th) Baseline 14 ng/L (0-10)
[2022-11-10 01:40] LABS: D Dimer 1.79 ug/mIFEU (0-0.59)
--- NOTE | 2022-11-10 01:48 | CTR_ITS ---
PROCEDURE INFORMATION: Exam: CTA Chest With Contrast Exam date and time: 11/10/2022 2:02 AM Age: 67 years old Clinical indication: Pain; Shortness of breath; Chest pressure; Additional info: Chest pain, SOB TECHNIQUE: Imaging protocol: Computed tomographic angiography of the chest with contrast. 3D rendering (Not supervised by radiologist): MIP and/or 3D reconstructed images were created by the technologist. Radiation optimization: All CT scans at this facility use at least one of these dose optimization techniques: automated exposure control; mA and/or kV adjustment per patient size (includes targeted exams where dose is matched to clinical indication); or iterative reconstruction. Contrast material: OMNI 350; Contrast volume: 100 ml; Contrast route: INTRAVENOUS (IV); COMPARISON: CT lung screening [id number] 11/23/2021 10:22 AM RADIATION DOSE METRICS: Total DLP (mGy-cm): 381.37 FINDINGS: Pulmonary arteries: Normal. No pulmonary emboli. Aorta: Unremarkable. No aortic aneurysm. No aortic dissection. Lungs: There is a background of mild centrilobular emphysema. Patchy opacities are seen in the right posterior costophrenic recess compatible with atelectasis versus pleural or parenchymal scarring. Pleural spaces: See Lungs finding. Heart: Unremarkable. No cardiomegaly. No pericardial effusion. Coronary arteries: There are moderate coronary artery calcifications. Lymph nodes: Unremarkable. No enlarged lymph nodes. Retroperitoneal space: There are bilateral Bochdalek's hernias containing retroperitoneal fat. Bones/joints: Unremarkable. No acute fracture. Soft tissues: Unremarkable. CT/CT angio chest PE protcl [id number] IMPRESSION: 1. There is no evidence for pulmonary emboli. 2. Background of mild centrilobular emphysema. Patchy opacities in the right posterior costophrenic recess likely represents atelectasis versus pleural or parenchymal scarring. 3. Small bilateral Bochdalek's hernias containing retroperitoneal fat. COMMENTS: In the absence of a history or active diagnosis of lung cancer, it is recommended that this patient with emphysema be evaluated for enrollment in a low dose CT lung cancer screening program.
[2022-11-10 01:49] LABS: Alanine Aminotransferase 27 U/L (0-33); Albumin Level 4.5 g/dL (3.5-5.2); Alkaline Phosphatase 146 U/L (35-105); Anion Gap 16.2 (5-19); Aspartate Amino Transferase 22 U/L (0-32); Blood Urea Nitrogen 7 mg/dL (8-23); Calcium 9.8 mg/dL (8.5-10.5); Carbon Dioxide 31 mmol/L (22-29); Chloride 95 mmol/L (98-107); Globulin 3.4 g/dL (1.3-4.6); Glomerular Filtration Rate 122.7 mL/min (90-130); Glucose 105 mg/dL (65-115); NT Pro B Type Natriuretic Pept 89 pg/mL (0-125); Osmolality Calculated 286 mOsm/kg (285-295); Potassium 3.2 mmol/L (3.5-5.1); Sodium 139 mmol/L (136-145); Total Bilirubin 0.3 mg/dL (0.15-1.2); Total Protein 7.9 g/dL (6.6-8.7)
[2022-11-10] MEDS: diphenhydrAMINE 50 mg/mL SDV 1mL 25 MG IVP (02:16)
[2022-11-10] MEDS: iohexol 350 mg/mL 500 mL Btl (per mL) IV (02:17)
--- NOTE | 2022-11-10 02:19 | ECG_ITS ---
[facility] Test Date: 2022-11-10 Pat Name: Tika Garcia Department: Room: Gender: Female Custodial Maintenance Worker: : 1955 Requested By: Venkata Ly Order Number: [id number] Lukasz MD: Becky Bro M.D. Measurements Intervals [place] Rate: 106 P: 149 FL: 161 QRS: 137 QRSD: 90 T: 149 QT: 334 QTc: 444 Interpretive Statements SINUS TACHYCARDIA ARM LEADS REVERSED [INVERTED P AND QRS IN I] Poor R wave progression ABNORMAL RHYTHM ECG Compared to ECG 11/09/2022 23:28:35 Sinus rhythm no longer present Electronically Signed On 11-11-2022 20:11:59 BRAZER CRAWLER TORCH by Becky Bro M.D. [email or web address].[employer]/store/[id number]
[2022-11-10 02:20] VITALS: PULSE 106; RESP 18; O2SAT 98
[2022-11-10] MEDS: racepinephrine 0.5 mL Neb INHALATION (02:20)
--- NOTE | 2022-11-10 02:23 | PC.NURSE ---
Pt returned from CT more SOB than before. Dr. Palencia notified.
[2022-11-10 02:26] LABS: SARS Covid-2 Antigen negative (Negative)
[2022-11-10] MEDS: potassium chloride ER 20 mEq Tablet 40 MEQ PO (02:58)
--- NOTE | 2022-11-10 03:23 | ED_ITS ---
HPI - SOB/Dyspnea General: Chief Complaint: Shortness of Breath/Dyspnea Stated Complaint: SOB Time Seen by Provider: 11/09/22 23:32 Source: patient History of Present Illness: HPI Narrative: 67-year-old female with a history of COPD. She presents with increased shortness of breath, and mid back pain increasing over the last couple days. She denies overt chest pain. She is on 2 L of oxygen at home. She denies significant cough. She has been using her nebulizer machine without much improvement. She rates her mid back pain at 10 out of 10. MD elicited complaint: shortness of breath Pertinent past history: COPD and congestive heart failure Onset (ago): day(s) Timing: constant and progressively worsening Severity: moderate Exacerbating factors: lying flat and exertion Relieving factors: oxygen Known history of: COPD and congestive heart failure Associated symptoms: Reports chest congestion, cough and nausea; Deny abdominal pain, chest pain, diaphoresis, fever(s) or vomiting Treatment prior to arrival: oxygen and bronchodilator Review of Systems Const: Denies: fever(s), body aches or diaphoresis Eyes: Denies: change in vision ENMT: Denies: throat pain Card: Denies: chest pain Resp: Reports: dyspnea, wheezing and chest congestion; Denies: productive cough or non-productive cough GI: Reports: nausea; Denies: abdominal pain or vomiting Psych: Reports: anxiety [facility] PFSH: Medical History Anxiety and depression Bipolar 1 disorder, mixed, moderate Bipolar disorder, current episode mixed, unspecified Chronic arthritis Chronic GERD Chronic obstructive pulmonary disease, unspecified Chronic post-traumatic stress disorder Depression, major, recurrent, moderate Dyskinesia, tardive Drug induced Dyslipidemia Environmental and seasonal allergies Major depressive disorder, recurrent episode, moderate with anxious distress Panic disorder with agoraphobia Psychiatric care Unspecified hearing loss, left ear Surgical History H/O esophagogastroduodenoscopy (11/08/21) History of back surgery History of bilateral knee replacement History of colonoscopy within 10 yrs History of D&C History of laparoscopy History of sinus surgery History of tonsillectomy Family History Other Cancer Chronic obstructive pulmonary disease, unspecified Diabetes Heart disease Hyperlipidemia Hypertension Thyroid disease Social History Smoking and tobacco status: current every day smoker (1 ppd) cigarettes Packs smoked per day: 1 Years cigarettes smoked: 40 [ Other cigarette details: started at age 16] Quit status (tobacco): not considering quitting Smoking risk assessment/counseling performed?: Yes Alcohol intake: never Lives independently: Yes Household members: none Housing: Apartment Marital status: Single Number of children: 0 Number of grandchildren: 0 Highest education level completed: Some College, No Degree service: No Current occupational status: disabled Pets and animals: No History of recent travel: No Leisure activites: other Leisure activities details: watching television Sexually active: No Current gender identity: Female 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 Special sury needs: No Agree to transfusion: Yes Financial difficulty paying for basics: Not Very Hard Female Reproductive History: Para: 0 Spontaneous abortions: No Date of menopause: 05/03/04 Physical Exam Const: GENERAL APPEARANCE: cooperative, ill appearing (Mildly) and frail appearing (Mildly) ORIENTATION/CONSCIOUSNESS: Yes awake, Yes oriented to person, Yes oriented to place and Yes oriented to time HENMT: COMMON NORMALS: normocephalic, atraumatic and Normal external nose present HEAD & SCALP: normocephalic and atraumatic FACE & SINUS: normal facial exam and face symmetric NOSE: Normal external nose present Eye: COMMON NORMALS: Equal, round and reactive pupils present and EOMs intact bilaterally PUPIL: Yes Equal, round and reactive pupils present Neck/C-Spine: GENERAL: Yes trachea midline Chest: CHEST: Yes Symmetrical chest wall rise Resp: EFFORT & INSPECTION: Yes tachypneic AUSCULTATION: rhonchi and wheezes Cardio: COMMON NORMALS: regular rhythm RATE: tachycardic RHYTHM: regular rhythm GI: COMMON NORMALS: Normal to inspection, nondistended, normoactive bowel sounds present Extremity: COMMON NORMALS: no pedal edema Neuro: CITLALY COMA SCALE: document GCS findings [place] coma scale eye opening: Spontaneous Citlaly coma scale verbal response: Orientated Citlaly coma scale motor response: Obey commands [place] coma scale total score: 15 SENSORIUM/ORIENTATION: Yes oriented to person, Yes oriented to place and Yes oriented to time SENSORY EXAM: Yes extremities (intact) Psych: COMMON NORMALS: speech normal SPEECH: Yes normal speech Skin: COMMON NORMALS: no rashes or lesions noted GENERAL SKIN EXAM: no rashes or lesions noted Course Vital Signs: Vital signs: Vital Signs Temperature 98 F 11/09/22 23:20 Pulse Rate 92 11/10/22 03:30 Respiratory Rate 19 H 11/10/22 03:30 Blood Pressure 108/88 11/10/22 03:30 Pulse Oximetry 96 11/10/22 03:30 Oxygen Delivery Me thod 11/10/22 03:30 Oxygen Flow Rate 2 11/09/22 23:20 MDM - SOB/Dyspnea Medical Decision Making Saturations have been normal on her normal 2 L. Heart rate mildly elevated. Blood pressure 141/87. Her D-dimer was significantly elevated at 1.8. White blood cell count is 12. Potassium is low at 3.2 initial troponin is 14 with a BNP of 89. Breathing improved after DuoNeb treatment initially. After CTA was performed, she came back wheezing and more short of breath. She is given racemic epinephrine and Benadryl with improvement. Solu-Medrol has been given. Lasix has been given as well. CTA shows no pulmonary embolus, no dissection, no acute compression fracture or other cause of her pain. . There is emphysema present with atelectasis/scarring posteriorly. Her delta troponin is -1.2. Respiratory symptoms are improved. She still having significant pain to her back. We will allow her home on pain medication for her back, steroid taper for her emphysema/wheeze, and continue nebulizer treatments. To return for any worsening symptoms. Lab Data 11/10/22 01:10 11/10/22 01:10 Labs/Radiology: Radiology Impressions Chest X-Ray 11/10/22 00:00 IMPRESSION: 1. There is a background of emphysema and pulmonary fibrosis. 2. Linear opacities in the left lower hemithorax likely represents atelectasis. Chest CTA 11/10/22 01:48 IMPRESSION: 1. There is no evidence for pulmonary emboli. 2. Background of mild centrilobular emphysema. Patchy opacities in the right posterior costophrenic recess likely represents atelectasis versus pleural or parenchymal scarring. 3. Small bilateral Bochdalek's hernias containing retroperitoneal fat. COMMENTS: In the absence of a history or active diagnosis of lung cancer, it is recommended that this patient with emphysema be evaluated for enrollment in a low dose CT lung cancer screening program. Laboratory Results WBC 11.9 10^3/uL (4.0-10.0) H 11/10/22 01:10 RBC 4.59 10^6/uL (4.1-5.3) 11/10/22 01:10 Hgb 13.8 g/dL (11.5-15.3) 11/10/22 01:10 Hct 44.4 % (37.0-47.0) 11/10/22 01:10 MCV 96.7 fl (81-99) 11/10/22 01:10 MCH 30.1 pg (28.0-34.0) 11/10/22 01:10 MCHC 31.1 g/dL (30.0-36.0) 11/10/22 01:10 RDW 12.9 % (12.1-15.1) 11/10/22 01:10 Plt Count 414 10^3/cmm (130-400) H 11/10/22 01:10 MPV 8.9 fL (7.4-10.4) 11/10/22 01:10 Neut % (Auto) 65.1 % 11/10/22 01:10 Lymph % (Auto) 25.7 % 11/10/22 01:10 Gordon % (Auto) 6.1 % 11/10/22 01:10 Eos % (Auto) 2.4 % 11/10/22 01:10 Baso % (Auto) 0.4 % 11/10/22 01:10 Neut # (Auto) 7.74 10^3/uL (1.8-7.7) H 11/10/22 01:10 Lymph # (Auto) 3.1 10^3/uL (0.8-4.8) 11/10/22 01:10 Gordon # (Auto) 0.7 10^3/uL (0.2-0.9) 11/10/22 01:10 Eos # (Auto) 0.3 10^3/uL (0.0-0.8) 11/10/22 01:10 Baso # (Auto) 0.1 10^3/uL (0.0-0.1) 11/10/22 01:10 Nucleated RBC % (auto) 0 % 11/10/22 01:10 Nucleated RBCs # 0.0 /100WBC 11/10/22 01:10 D-Dimer 1.79 ug/mIFEU (0-0.59) H 11/10/22 01:10 Sodium 139 mmol/L (136-145) 11/10/22 01:10 Potassium 3.2 mmol/L (3.5-5.1) L 11/10/22 01:10 Chloride 95 mmol/L (98-107) L 11/10/22 01:10 Carbon Dioxide 31 mmol/L (22-29) H 11/10/22 01:10 Anion Gap 16.2 (5-19) 11/10/22 01:10 BUN 7 mg/dL (8-23) L 11/10/22 01:10 Creatinine 0.5 mg/dL (0.5-0.9) 11/10/22 01:10 GFR Calculation 122.7 mL/min (90-130) 11/10/22 01:10 Glucose 105 mg/dL (65-115) 11/10/22 01:10 Calculated Osmolality 286 mOsm/kg (285-295) 11/10/22 01:10 Lactic Acid 1.0 mmol/L (0.5-2.2) 11/10/22 01:10 Calcium 9.8 mg/dL (8.5-10.5) 11/10/22 01:10 Total Bilirubin 0.3 mg/dL (0.15-1.2) 11/10/22 01:10 AST 22 U/L (0-32) 11/10/22 01:10 ALT 27 U/L (0-33) 11/10/22 01:10 Alkaline Phosphatase 146 U/L (35-105) H 11/10/22 01:10 Troponin T Baseline 14 ng/L (0-10) H 11/10/22 01:10 Troponin T 120 Minute 12.77 ng/L (0-10) H 11/10/22 03:07 Delta Troponin T -1.23 ABS# (0-10) L 11/10/22 03:07 NT-Pro-B Natriuret Pep 89 pg/mL (0-125) 11/10/22 01:10 Total Protein 7.9 g/dL (6.6-8.7) 11/10/22 01:10 Albumin 4.5 g/dL (3.5-5.2) 11/10/22 01:10 Globulin 3.4 g/dL (1.3-4.6) 11/10/22 01:10 SARS-CoV-2 Ag (Rapid) negative (Negative) 11/10/22 01:55 Discharge Plan Discharge Patient Disposition: Home Clinical Impression: Acute exacerbation of chronic obstructive pulmonary disease (COPD), Back pain Condition: Stable Prescriptions: New prednisone 10 mg tablet See Rx Instructions .ROUTE .COMPLEX Qty: 36 0RF Rx Instructions: prednisone 5 mg: take 8 tablets (40 mg) on Day 1; 7 tablets (35 mg) on Day 2; then decrease by 1 tablet every day until finished Percocet 5-325 mg tablet 1 tab PO TID PRN (Reason: pain) Qty: 10 0RF doxycycline hyclate 100 mg tablet 100 mg PO BID 7 Days Qty: 14 0RF No Action aspirin [Adult Low Dose Aspirin] 81 mg tablet,delayed release (DR/EC) 81 mg PO DAILY (DME) nebulizer accessories Kit See Rx Instructions .Route Qty: 1 0RF Rx Instructions: As directed (DME) compressor, for nebulizer Device See Rx Instructions .Route Qty: 1 0RF Rx Instructions: As directed Mucinex 1,200 mg tablet extended release 12hr 1,200 mg PO BID PRN (Reason: congestion) 30 Days Qty: 60 5RF budesonide 0.5 mg/2 mL suspension for nebulization 0.5 mg inhalation BID Qty: 120 11RF formoterol fumarate 20 mcg/2 mL solution for nebulization 2 ml inhalation BID Qty: 120 11RF revefenacin 175 mcg/3 mL solution for nebulization 175 mcg inhalation DAILY Qty: 90 11RF hydroxyzine HCl 25 mg tablet 25 mg PO BID PRN (Reason: anxiety) Qty: 60 3RF (DME) Wheelchair See Rx Instructions .Route .MEDSUPPLY Qty: 1 0RF Rx Instructions: As directed fluticasone propionate 50 mcg/actuation spray,suspension 2 spray INTRANASAL QDAY PRN (Reason: allergy symptoms) albuterol sulfate 2.5 mg /3 mL (0.083 %) solution for nebulization 2.5 mg inhalation QID PRN (Reason: shortness of breath or wheezing) Qty: 75 5RF lovastatin 20 mg tablet 20 mg PO QDAY 30 Days Qty: 30 5RF (DME) oxygen concentrator with portable See Rx Instructions .Route .MEDSUPPLY Qty: 1 0RF Rx Instructions: as directed, 2L nasal cannula, oxygen concentrator with portable concentrator albuterol sulfate [ProAir HFA] 90 mcg/actuation HFA aerosol inhaler 2 puff INHALATION QID PRN (Reason: shortness of breath or wheezing) 30 Days Qty: 6.7 5RF pantoprazole [Protonix] 40 mg tablet,delayed release (DR/EC) 40 mg PO DAILY Qty: 30 5RF Spiriva with HandiHaler 18 mcg capsule, w/inhalation device 1 cap INHALATION QDAY 30 Days Qty: 30 5RF montelukast [Singulair] 10 mg tablet 10 mg PO QDAY 30 Days Qty: 30 5RF melatonin 5 mg tablet 5 mg PO BEDTIME PRN (Reason: sleep) Qty: 30 3RF gabapentin [Neurontin] 300 mg capsule 300 mg PO BID Qty: 60 2RF potassium chloride 10 mEq capsule, extended release 10 meq PO DAILY Qty: 30 3RF Lasix 20 mg tablet 20 mg PO DAILY Qty: 30 3RF budesonide-formoterol [Symbicort] 160-4.5 mcg/actuation HFA aerosol inhaler 2 puff inhalation BID coenzyme Q10 [CoQ-10] 30 mg Capsule 30 mg PO DAILY Shaklee Multi Vitamin 1 tab PO DAILY Tylenol Arthritis Pain 650 mg tablet extended release 1,300 mg PO BID PRN (Reason: pain) diphenhydramine HCl [Benadryl] 25 mg capsule 50 mg PO DAILY PRN (Reason: Allergy Symptoms) Abilify 5 mg tablet 5 mg PO QPM turmeric 400 mg Capsule 400 mg PO DAILY trazodone 100 mg tablet 100 - 200 mg PO BEDTIME PRN (Reason: sleep) Ingrezza 40 mg capsule 40 mg PO DAILY Discharge Orders: Discharge ED (Routine); Ordered 11/10/22 Ordered By: Venkata Palencia Referrals: Tracey Shrestha FNP-C [Primary Care Provider] - 1-3 days Patient Instructions: Opioid Safety, Pain Management, COPD (Chronic Obstructive Pulmonary Disease) (ED), Back Pain (ED) Activity Restrictions/Additional Instructions: Use your nebulizer machine every 4 hours while awake for the next 48 hours, whether you are short of breath or not, then as needed. Medications as directed. Return for worsening shortness of breath despite treatment, worsening chest discomfort or back discomfort despite treatment, other concerning symptoms. CT scans did not reveal a cause of your back pain. Medication as directed for significant pain to your back. Coding Level of Care Code ED Certified Art Therapist for Chg Fwd Exam Comprehensive
[2022-11-10 03:30] VITALS: BP 108/88; PULSE 92; RESP 19; O2SAT 96
[2022-11-10 03:42] LABS: Troponin 5 2HR 12.77 ng/L (0-10)
[2022-11-10 03:59] LABS: Troponin 5 2HR Delta -1.23 ABS# (0-10)
[2022-11-10] MEDS: oxyCODONE-APAP 5-325 mg Tablet 2 TAB PO (04:47)
== END 2022-11-10 08:04 | disposition home or self-care (01) ==
PROVIDERS: Emergency Provider Emergency Medicine; PCP Nurse Practitioner Family
DX: J44.1 Chronic obstructive pulmonary disease with (acute) exacerbation (principal); M54.6 Pain in thoracic spine; Z79.82 Long term (current) use of aspirin; Z20.822 Contact with and (suspected) exposure to COVID-19; F17.210 Nicotine dependence, cigarettes, uncomplicated; E78.5 Hyperlipidemia, unspecified
CPT/HCPCS: 36415; 71045; 71275; 80053; 83605; 83880; 84484; 85025; 85378; 87040; 87426; 93005; 94640; 96374; 96375; 96376; 99285; J1200; J1940; J2270; J2405; J2930; Q9967

== ENCOUNTER 2022-11-14 15:31 | Observation (INO) | payer MEDICARE, MEDICAID, SELFPAY ==
[2022-11-13 09:28] VITALS: BP 111/72; BMI 24.9
[2022-11-14] VITALS (9 sets, daily range): BP systolic 114–133; BP diastolic 79–87; PULSE 87–101; RESP 16–37; TEMP 36.9; O2SAT 93–97; BMI 26.6
--- NOTE | 2022-11-14 15:53 | ECG_ITS ---
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 Measurements Intervals [place] Rate: 104 P: 78 OK: 160 QRS: 92 QRSD: 81 T: 79 QT: 329 QTc: 434 Interpretive Statements SINUS TACHYCARDIA BORDERLINE RIGHT AXIS DEVIATION [QRS AXIS > 90] LOW QRS VOLTAGE IN PRECORDIAL LEADS [QRS DEFLECTION < 1.0 mV IN CHEST LEADS] POSSIBLE ANTERIOR MYOCARDIAL INFARCTION , OF INDETERMINATE AGE [30 ms Q WAVE IN V3/V4, OR R < 0.2 mV IN V4] Compared to ECG 11/10/2022 02:19:45 Low QRS voltage now present Myocardial infarct finding now present Poor R-wave progression no longer present Electronically Signed On 11-14-2022 21:43:27 PSYCHOLOGICAL TESTS SALES AGENT by Becky Bro M.D. [email or web address]
[2022-11-14 16:07] LABS: Basophils % 0.1 %; Hematocrit 39.6 % (37.0-47.0); Hemoglobin 12.8 g/dL (11.5-15.3); Lymphocytes # 1.7 10^3/uL (0.8-4.8); Lymphocytes % 11.8 %; Mean Corpuscular HGB Conc 32.3 g/dL (30.0-36.0); Mean Corpuscular Hemoglobin 30.5 pg (28.0-34.0); Mean Corpuscular Volume 94.5 fl (81-99); Mean Platelet Volume 8.4 fL (7.4-10.4); Monocytes # 0.6 10^3/uL (0.2-0.9); Monocytes % 4.2 %; Neutrophils # 12.04 10^3/uL (1.8-7.7); Neutrophils % 83.4 %; Nucleated Red Blood Cells % 0 %; Platelet Count 366 10^3/cmm (130-400); Red Blood Count 4.19 10^6/uL (4.1-5.3); Red Cell Distribution Width 12.8 % (12.1-15.1); White Blood Count 14.4 10^3/uL (4.0-10.0)
[2022-11-14] MEDS: ipratropium-albuterol 3 mL Neb INHALATION (16:07)
[2022-11-14 16:21] LABS: ABG PCO2 46.6 mmHg (35-45); ABG PH Result 7.45 (7.35-7.45); Arterial Blood Gas Hematocrit 39.3 % (37-47); Base Excess ABG 7.6 mmol/L (-2.0-2.0); Blood Gas Allen Test Pos; Blood Gas Sample Type Arterial; Carboxyhemoglobin 3.2 %THgb (0.4-20.1); HCO3 ABG 32.7 mmol/L (22-26); HGB O2 Sat 93.3 % (95-100); Ionized Calcium Level - ABG 1.2 mmol/L (1.1-1.4); Methemoglobin 0.4 % (0.4-1.5); Oxygen Saturation ABG 96.7; Potassium Level - ABG 3.9 mmol/L (3.5-5.0); Total Hemoglobin 12.8 g/dL (12-16)
[2022-11-14 16:22] LABS: Alveolar-Arterial Oxygen Gradi 12.1 mmHg (5-10); Blood Gas Operator Identificat MONRO; Blood Gas Sample Site Radial, left; Oxygen Device NC
[2022-11-14 16:32] LABS: Alanine Aminotransferase 25 U/L (0-33); Albumin Level 4.1 g/dL (3.5-5.2); Alkaline Phosphatase 123 U/L (35-105); Aspartate Amino Transferase 18 U/L (0-32); Blood Urea Nitrogen 14 mg/dL (8-23); Carbon Dioxide 31 mmol/L (22-29); Chloride 96 mmol/L (98-107); Globulin 2.7 g/dL (1.3-4.6); Glomerular Filtration Rate 99.4 mL/min (90-130); Glucose 104 mg/dL (65-115); Osmolality Calculated 283 mOsm/kg (285-295); Sodium 136 mmol/L (136-145); Total Bilirubin 0.2 mg/dL (0.15-1.2); Total Protein 6.8 g/dL (6.6-8.7)
--- NOTE | 2022-11-14 18:12 | ED_ITS ---
Documented by User: Khai Chung DO 11/27/22 17:49 HPI - SOB/Dyspnea General: Chief Complaint: Shortness of Breath/Dyspnea Stated Complaint: RESPIRATORY DISTRESS Time Seen by Provider: 11/14/22 15:33 Source: patient Mode of arrival: EMS History of Present Illness: HPI Narrative: 67-year-old female presents emergency room complaining of difficulty breathing. She had breathing difficulty earlier this morning and overnight had progressively worsened in the morning hours and throughout the day she feels like she cannot catch her breath she normally does wear oxygen at 3 L/min at home and uses a nebulizer. Minimally productive cough no chest pain. She has not had a fever. No orthopnea or swelling in her lower extremities. MD elicited complaint: shortness of breath and cough Pertinent past history: COPD Onset (ago): minute(s) Timing: constant Severity: mild Exacerbating factors: nothing Relieving factors: nothing Known history of: COPD Associated symptoms: Reports chest congestion and cough; Deny abdominal pain, chest pain, diaphoresis, dizziness, extremity pain, fever(s), hemoptysis, lightheadedness, myalgias, nausea, orthopnea, palpitations, paresthesias, polydipsia, polyuria, rash, sense of impending doom, syncope or vomiting Treatment prior to arrival: none Review of Systems Const: Denies: fever(s), chills, fatigue, malaise or diaphoresis ENMT: Denies: throat pain, ear or mastoid pain, nasal discharge or nasal congestion Card: Denies: chest pain, palpitations, lightheadedness, syncope or orthopnea Resp: Reports: dyspnea, non-productive cough, wheezing and chest congestion; Denies: hemoptysis GI: Denies: abdominal pain, nausea or vomiting : Denies: flank pain, difficulty voiding, dysuria, urinary frequency or urinary urgency Musc: Denies: extremity pain Skin/Breast: Denies: rash or pruritus Neuro: Denies: dizziness Endo: Denies: polyuria or polydipsia PFS ED PFSH: Medical History Acute exacerbation of chronic obstructive pulmonary disease (COPD) Anxiety and depression Back pain Bipolar 1 disorder, mixed, moderate Bipolar disorder, current episode mixed, unspecified Chronic arthritis Chronic gastroesophageal reflux disease Chronic GERD Chronic obstructive pulmonary disease, unspecified Chronic post-traumatic stress disorder COPD (chronic obstructive pulmonary disease) COVID DDD (degenerative disc disease), lumbosacral Depression, major, recurrent, moderate Dry throat Dyskinesia, tardive Drug induced Dyslipidemia Environmental and seasonal allergies Localized swelling, mass and lump, lower limb, bilateral Major depressive disorder, recurrent episode, moderate with anxious distress Obstructive sleep apnea Panic disorder with agoraphobia Psychiatric care Unspecified hearing loss, left ear Surgical History H/O esophagogastroduodenoscopy (11/08/21) History of back surgery History of bilateral knee replacement History of colonoscopy within 10 yrs History of D&C History of laparoscopy History of sinus surgery History of tonsillectomy Family History Other Cancer Chronic obstructive pulmonary disease, unspecified Diabetes Heart disease Hyperlipidemia Hypertension Thyroid disease Social History Smoking and tobacco status: current every day smoker cigarettes Packs smoked per day: 1 Years cigarettes smoked: 40 [ Other cigarette details: started at age 16] Quit status (tobacco): not considering quitting Smoking risk assessment/counseling performed?: Yes Alcohol intake: never Lives independently: Yes Household members: none Housing: Apartment Marital status: Single Number of children: 0 Number of grandchildren: 0 Highest education level completed: Some College, No Degree service: No Current occupational status: disabled Pets and animals: No History of recent travel: No Leisure activites: other Leisure activities details: watching television Sexually active: No Current gender identity: Female Sury/Mormonism: Synagogue Special sury needs: No Agree to transfusion: Yes Financial difficulty paying for basics: Not Very Hard Female Reproductive History: Para: 0 Spontaneous abortions: No Date of menopause: 05/03/04 Physical Exam Const: COMMON NORMALS: no acute distress GENERAL APPEARANCE: cooperative and comfortable ORIENTATION/CONSCIOUSNESS: Yes awake, Yes oriented to person, Yes oriented to place and Yes oriented to time HENMT: COMMON NORMALS: normocephalic, atraumatic and hearing grossly normal bilaterally HEAD & SCALP: normocephalic and atraumatic Resp: AUSCULTATION: rhonchi and wheezes Cardio: COMMON NORMALS: regular rate, regular rhythm and No murmurs present (Cardio) RATE: regular rate RHYTHM: regular rhythm GI: COMMON NORMALS: Soft to palpation and No hepatosplenomegaly present AUSCULTATION: Yes normoactive bowel sounds PALPATION: Yes Soft to palpation, No Tenderness to palpation present (GI), No Guarding due to palpation present (GI) and Yes No hepatosplenomegaly present Extremity: COMMON NORMALS: normal to inspection, capillary refill normal, no clubbing, cyanosis or edema, no calf tenderness and no pedal edema Neuro: SENSORIUM/ORIENTATION: Yes oriented to person, Yes oriented to place and Yes oriented to time Skin: COMMON NORMALS: no rashes or lesions noted GENERAL SKIN EXAM: no rashes or lesions noted Course Vital Signs: Vital signs: Vital Signs Temperature 98.3 F 11/17/22 12:42 Pulse Rate 86 11/17/22 12:42 Respiratory Rate 18 11/17/22 12:42 Blood Pressure 123/76 11/17/22 12:42 Pulse Oximetry 97 11/17/22 12:42 Oxygen Delivery Me thod 11/17/22 12:00 Oxygen Flow Rate 3 11/17/22 10:38 MDM - SOB/Dyspnea Medical Decision Making Care signed out to Dr. Paiz at change of shift. See final notes for diagnosis and disposition. Patient care handoff received from Dr. Chung pending completion of ED evaluation and reassessment of patient condition. On reassessment patient continues to have wheezing. Additional RT treatment ordered. She also began to report pain in her back as well as left arm. Additional imaging and lab work ordered. Laboratory studies reviewed with mild leukocytosis, normal hemoglobin. Metabolic panel without significant derangement compared to prior. Chest x-ray with no lobar consolidation or pneumothorax. Arm x-rays without obvious fracture. Despite repeated treatment patient continues to appear dyspneic and borderline tachycardic. She was recently seen in the emergency department and has had 4 days now of steroids as well as antibiotics and increased frequent breathing treatments without significant improvement. Therefore, it is reasonable to admit the patient for observation and further respiratory care. The results of ED evaluation were discussed with the patient including plan for admission due to requirement for level of care not available if discharged to prevent significant worsening/deterioration. Patient agreeable with plan. Discussed with hospitalist service who was agreeable to admit patient. Medical Records I reviewed the patient's medical records. Lab Data I reviewed the patient's lab results. 11/14/22 16:00 11/14/22 16:00 Labs/Radiology: Radiology Impressions Chest X-Ray 11/14/22 18:14 IMPRESSION: Stable chest. No acute disease. Wrist X-Ray 11/14/22 18:43 IMPRESSION: No acute findings. Forearm X-Ray 11/14/22 19:36 IMPRESSION: No acute findings. Humerus X-Ray 11/14/22 19:36 IMPRESSION: No acute findings. Cervical Spine X-Ray 11/14/22 20:57 IMPRESSION: 1. No acute osseous injury. 2. Limited study due to positioning. Lumbar Spine X-Ray 11/14/22 20:57 IMPRESSION: Degenerative changes. No acute injury. Thoracic Spine X-Ray 11/14/22 20:57 IMPRESSION: Mild wedge compression deformity of an upper thoracic vertebrae, age indeterminate. Correlate with point tenderness. Chest CTA 11/16/22 06:55 IMPRESSION: 1. No evidence of pulmonary embolus. 2. No acute pulmonary infiltrates. 3. Mild compression superior endplate T5 has progressed since November 10, 2022 with anterior wedging. Loss of approximately 40% vertebral body height. No retropulsion. Laboratory Results WBC 14.4 10^3/uL (4.0-10.0) H 11/14/22 16:00 RBC 4.19 10^6/uL (4.1-5.3) 11/14/22 16:00 Hgb 12.8 g/dL (11.5-15.3) 11/14/22 16:00 Hct 39.6 % (37.0-47.0) 11/14/22 16:00 MCV 94.5 fl (81-99) 11/14/22 16:00 MCH 30.5 pg (28.0-34.0) 11/14/22 16:00 MCHC 32.3 g/dL (30.0-36.0) 11/14/22 16:00 RDW 12.8 % (12.1-15.1) 11/14/22 16:00 Plt Count 366 10^3/cmm (130-400) 11/14/22 16:00 MPV 8.4 fL (7.4-10.4) 11/14/22 16:00 Neut % (Auto) 83.4 % 11/14/22 16:00 Lymph % (Auto) 11.8 % 11/14/22 16:00 [place] % (Auto) 4.2 % 11/14/22 16:00 Eos % (Auto) 0.0 % 11/14/22 16:00 Baso % (Auto) 0.1 % 11/14/22 16:00 Neut # (Auto) 12.04 10^3/uL (1.8-7.7) H 11/14/22 16:00 Lymph # (Auto) 1.7 10^3/uL (0.8-4.8) 11/14/22 16:00 [place] # (Auto) 0.6 10^3/uL (0.2-0.9) 11/14/22 16:00 Eos # (Auto) 0.0 10^3/uL (0.0-0.8) 11/14/22 16:00 Baso # (Auto) 0.0 10^3/uL (0.0-0.1) 11/14/22 16:00 Nucleated RBC % (auto) 0 % 11/14/22 16:00 Nucleated RBCs # 0.0 /100WBC 11/14/22 16:00 Specimen Type Arterial 11/14/22 16:10 Sample Site Radial, left 11/14/22 16:10 ABG pH 7.45 (7.35-7.45) 11/14/22 16:10 ABG pCO2 46.6 mmHg (35-45) H 11/14/22 16:10 ABG pO2 76.0 mmHg (80.0-100.0) L 11/14/22 16:10 ABG HCO3 32.7 mmol/L (22-26) H 11/14/22 16:10 ABG O2 Saturation 96.7 11/14/22 16:10 ABG Base Excess 7.6 mmol/L (-2.0-2.0) H 11/14/22 16:10 Tomás Test Pos 11/14/22 16:10 A-a O2 Gradient 12.1 mmHg (5-10) H 11/14/22 16:10 Hematocrit 39.3 % (37-47) 11/14/22 16:10 Hgb O2 Saturation 93.3 % (95-100) L 11/14/22 16:10 Carboxyhemoglobin 3.2 %THgb (0.4-20.1) 11/14/22 16:10 Methemoglobin 0.4 % (0.4-1.5) 11/14/22 16:10 Total Hemoglobin 12.8 g/dL (12-16) 11/14/22 16:10 Sodium 140.0 mmol/L (131-143) 11/14/22 16:10 Potassium 3.9 mmol/L (3.5-5.0) 11/14/22 16:10 Glucose 106.0 mg/dL (70-115) 11/14/22 16:10 Ionized Calcium 1.2 mmol/L (1.1-1.4) 11/14/22 16:10 O2 Delivery Device Nc 11/14/22 16:10 O2 Liters/Min 3.0 % 11/14/22 16:10 FiO2 32.0 % 11/14/22 16:10 Bodywork Therapist ID Monro 11/14/22 16:10 Sodium 136 mmol/L (136-145) 11/14/22 16:00 Potassium 4.0 mmol/L (3.5-5.1) 11/14/22 16:00 Chloride 96 mmol/L (98-107) L 11/14/22 16:00 Carbon Dioxide 31 mmol/L (22-29) H 11/14/22 16:00 Anion Gap 13.0 (5-19) 11/14/22 16:00 BUN 14 mg/dL (8-23) 11/14/22 16:00 Creatinine 0.6 mg/dL (0.5-0.9) 11/14/22 16:00 GFR Calculation 99.4 mL/min (90-130) 11/14/22 16:00 Glucose 104 mg/dL (65-115) 11/14/22 16:00 Calculated Osmolality 283 mOsm/kg (285-295) L 11/14/22 16:00 Calcium 9.0 mg/dL (8.5-10.5) 11/14/22 16:00 Total Bilirubin 0.2 mg/dL (0.15-1.2) 11/14/22 16:00 AST 18 U/L (0-32) 11/14/22 16:00 ALT 25 U/L (0-33) 11/14/22 16:00 Alkaline Phosphatase 123 U/L (35-105) H 11/14/22 16:00 Troponin T Baseline 6 ng/L (0-10) 11/14/22 20:05 Troponin T 120 Minute 9.07 ng/L (0-10) 11/14/22 22:09 Delta Troponin T 3.07 ABS# (0-10) 11/14/22 22:09 NT-Pro-B Natriuret Pep 62 pg/mL (0-125) 11/14/22 20:05 Total Protein 6.8 g/dL (6.6-8.7) 11/14/22 16:00 Albumin 4.1 g/dL (3.5-5.2) 11/14/22 16:00 Globulin 2.7 g/dL (1.3-4.6) 11/14/22 16:00 Procalcitonin 0.02 ng/mL (0-0.5) 11/14/22 20:05 Nasal Influ A H1 2009 PCR Not detected (NOT DETECT) 11/14/22 20:04 Adenovirus (PCR) Not detected (NOT DETECT) 11/14/22 20:04 C. pneumoniae DNA (PCR) Not detected (NOT DETECT) 11/14/22 20:04 Coronavirus 229E (PCR) Not detected (NOT DETECT) 11/14/22 20:04 Human Metapneumovir PCR Not detected (NOT DETECT) 11/14/22 20:04 Influenza A (H1) PCR Not detected (NOT DETECT) 11/14/22 20:04 Influenza A (H3) PCR Not detected (NOT DETECT) 11/14/22 20:04 Influenza Type A (PCR) Not detected (NOT DETECT) 11/14/22 20:04 Influenza Type B (PCR) Not detected (NOT DETECT) 11/14/22 20:04 M. pneumoniae (PCR) Not detected (NOT DETECT) 11/14/22 20:04 Parainfluenza 1 (PCR) Not detected (NOT DETECT) 11/14/22 20:04 Parainfluenza 2 (PCR) Not detected (NOT DETECT) 11/14/22 20:04 Parainfluenza 3 (PCR) Not detected (NOT DETECT) 11/14/22 20:04 Parainfluenza 4 (PCR) Not detected (NOT DETECT) 11/14/22 20:04 RSV Type A (PCR) Not detected (NOT DETECT) 11/14/22 20:04 RSV Type B (PCR) Not detected (NOT DETECT) 11/14/22 20:04 Entero/Rhino (PCR) Not detected (NOT DETECT) 11/14/22 20:04 SARS-CoV-2 (PCR) Detected (NOT DETECT) A 11/14/22 20:04 Discharge Plan Discharge Patient Disposition: Placed in Observation Admit Provider: Isaac Musa Clinical Impression: Acute exacerbation of chronic obstructive pulmonary disease (COPD) Discharge Diet: Cardiac Discharge Activity: Increase activity as tolerated Sign Out Sign Out Data: Patient Sign Out occurred on 11/14/22 at 18:20. Patient's care was discussed, a nd care was transferred from to Kartik Paiz MD. Coding Level of Care Code ED Case Management Social Worker for Chg Fwd Documented by User: Kartik Paiz MD 11/20/22 07:43 HPI - SOB/Dyspnea General: Chief Complaint: Shortness of Breath/Dyspnea Stated Complaint: RESPIRATORY DISTRESS Time Seen by Provider: 11/14/22 15:33 PFS ED PFSH: Medical History Acute exacerbation of chronic obstructive pulmonary disease (COPD) Anxiety and depression Back pain Bipolar 1 disorder, mixed, moderate Bipolar disorder, current episode mixed, unspecified Chronic arthritis Chronic gastroesophageal reflux disease Chronic GERD Chronic obstructive pulmonary disease, unspecified Chronic post-traumatic stress disorder COPD (chronic obstructive pulmonary disease) COVID DDD (degenerative disc disease), lumbosacral Depression, major, recurrent, moderate Dry throat Dyskinesia, tardive Drug induced Dyslipidemia Environmental and seasonal allergies Localized swelling, mass and lump, lower limb, bilateral Major depressive disorder, recurrent episode, moderate with anxious distress Obstructive sleep apnea Panic disorder with agoraphobia Psychiatric care Unspecified hearing loss, left ear Surgical History H/O esophagogastroduodenoscopy (11/08/21) History of back surgery History of bilateral knee replacement History of colonoscopy within 10 yrs History of D&C History of laparoscopy History of sinus surgery History of tonsillectomy Family History Other Cancer Chronic obstructive pulmonary disease, unspecified Diabetes Heart disease Hyperlipidemia Hypertension Thyroid disease Social History Smoking and tobacco status: current every day smoker cigarettes Packs smoked per day: 1 Years cigarettes smoked: 40 [ Other cigarette details: started at age 16] Quit status (tobacco): not considering quitting Smoking risk assessment/counseling performed?: Yes Alcohol intake: never Lives independently: Yes Household members: none Housing: Apartment Marital status: Single Number of children: 0 Number of grandchildren: 0 Highest education level completed: Some College, No Degree service: No Current occupational status: disabled Pets and animals: No History of recent travel: No Leisure activites: other Leisure activities details: watching television Sexually active: No Current gender identity: Female Sury/Mormonism: Synagogue Special sury needs: No Agree to transfusion: Yes Financial difficulty paying for basics: Not Very Hard Course Vital Signs: Vital signs: Vital Signs Temperature 98.3 F 11/17/22 12:42 Pulse Rate 86 11/17/22 12:42 Respiratory Rate 18 11/17/22 12:42 Blood Pressure 123/76 11/17/22 12:42 Pulse Oximetry 97 11/17/22 12:42 Oxygen Delivery Me thod 11/17/22 12:00 Oxygen Flow Rate 3 11/17/22 10:38 MDM - SOB/Dyspnea Medical Decision Making Patient care handoff received from Dr. Chung pending completion of ED evaluation and reassessment of patient condition. On reassessment patient continues to have wheezing. Additional RT treatment ordered. She also began to report pain in her back as well as left arm. Additional imaging and lab work ordered. Laboratory studies reviewed with mild leukocytosis, normal hemoglobin. Metabolic panel without significant derangement compared to prior. Chest x-ray with no lobar consolidation or pneumothorax. Arm x-rays without obvious fracture. Despite repeated treatment patient continues to appear dyspneic and borderline tachycardic. She was recently seen in the emergency department and has had 4 days now of steroids as well as antibiotics and increased frequent breathing treatments without significant improvement. Therefore, it is reasonable to admit the patient for observation and further respiratory care. The results of ED evaluation were discussed with the patient including plan for admission due to requirement for level of care not available if discharged to prevent significant worsening/deterioration. Patient agreeable with plan. Discussed with hospitalist service who was agreeable to admit patient. Lab Data 11/14/22 16:00 11/14/22 16:00 Labs/Radiology: Radiology Impressions Chest X-Ray 11/14/22 18:14 IMPRESSION: Stable chest. No acute disease. Wrist X-Ray 11/14/22 18:43 IMPRESSION: No acute findings. Forearm X-Ray 11/14/22 19:36 IMPRESSION: No acute findings. Humerus X-Ray 11/14/22 19:36 IMPRESSION: No acute findings. Cervical Spine X-Ray 11/14/22 20:57 IMPRESSION: 1. No acute osseous injury. 2. Limited study due to positioning. Lumbar Spine X-Ray 11/14/22 20:57 IMPRESSION: Degenerative changes. No acute injury. Thoracic Spine X-Ray 11/14/22 20:57 IMPRESSION: Mild wedge compression deformity of an upper thoracic vertebrae, age indeterminate. Correlate with point tenderness. Chest CTA 11/16/22 06:55 IMPRESSION: 1. No evidence of pulmonary embolus. 2. No acute pulmonary infiltrates. 3. Mild compression superior endplate T5 has progressed since November 10, 2022 with anterior wedging. Loss of approximately 40% vertebral body height. No retropulsion. Laboratory Results WBC 14.4 10^3/uL (4.0-10.0) H 11/14/22 16:00 RBC 4.19 10^6/uL (4.1-5.3) 11/14/22 16:00 Hgb 12.8 g/dL (11.5-15.3) 11/14/22 16:00 Hct 39.6 % (37.0-47.0) 11/14/22 16:00 MCV 94.5 fl (81-99) 11/14/22 16:00 MCH 30.5 pg (28.0-34.0) 11/14/22 16:00 MCHC 32.3 g/dL (30.0-36.0) 11/14/22 16:00 RDW 12.8 % (12.1-15.1) 11/14/22 16:00 Plt Count 366 10^3/cmm (130-400) 11/14/22 16:00 MPV 8.4 fL (7.4-10.4) 11/14/22 16:00 Neut % (Auto) 83.4 % 11/14/22 16:00 Lymph % (Auto) 11.8 % 11/14/22 16:00 [place] % (Auto) 4.2 % 11/14/22 16:00 Eos % (Auto) 0.0 % 11/14/22 16:00 Baso % (Auto) 0.1 % 11/14/22 16:00 Neut # (Auto) 12.04 10^3/uL (1.8-7.7) H 11/14/22 16:00 Lymph # (Auto) 1.7 10^3/uL (0.8-4.8) 11/14/22 16:00 [place] # (Auto) 0.6 10^3/uL (0.2-0.9) 11/14/22 16:00 Eos # (Auto) 0.0 10^3/uL (0.0-0.8) 11/14/22 16:00 Baso # (Auto) 0.0 10^3/uL (0.0-0.1) 11/14/22 16:00 Nucleated RBC % (auto) 0 % 11/14/22 16:00 Nucleated RBCs # 0.0 /100WBC 11/14/22 16:00 Specimen Type Arterial 11/14/22 16:10 Sample Site Radial, left 11/14/22 16:10 ABG pH 7.45 (7.35-7.45) 11/14/22 16:10 ABG pCO2 46.6 mmHg (35-45) H 11/14/22 16:10 ABG pO2 76.0 mmHg (80.0-100.0) L 11/14/22 16:10 ABG HCO3 32.7 mmol/L (22-26) H 11/14/22 16:10 ABG O2 Saturation 96.7 11/14/22 16:10 ABG Base Excess 7.6 mmol/L (-2.0-2.0) H 11/14/22 16:10 Tomás Test Pos 11/14/22 16:10 A-a O2 Gradient 12.1 mmHg (5-10) H 11/14/22 16:10 Hematocrit 39.3 % (37-47) 11/14/22 16:10 Hgb O2 Saturation 93.3 % (95-100) L 11/14/22 16:10 Carboxyhemoglobin 3.2 %THgb (0.4-20.1) 11/14/22 16:10 Methemoglobin 0.4 % (0.4-1.5) 11/14/22 16:10 Total Hemoglobin 12.8 g/dL (12-16) 11/14/22 16:10 Sodium 140.0 mmol/L (131-143) 11/14/22 16:10 Potassium 3.9 mmol/L (3.5-5.0) 11/14/22 16:10 Glucose 106.0 mg/dL (70-115) 11/14/22 16:10 Ionized Calcium 1.2 mmol/L (1.1-1.4) 11/14/22 16:10 O2 Delivery Device Nc 11/14/22 16:10 O2 Liters/Min 3.0 % 11/14/22 16:10 FiO2 32.0 % 11/14/22 16:10 Bodywork Therapist ID Monro 11/14/22 16:10 Sodium 136 mmol/L (136-145) 11/14/22 16:00 Potassium 4.0 mmol/L (3.5-5.1) 11/14/22 16:00 Chloride 96 mmol/L (98-107) L 11/14/22 16:00 Carbon Dioxide 31 mmol/L (22-29) H 11/14/22 16:00 Anion Gap 13.0 (5-19) 11/14/22 16:00 BUN 14 mg/dL (8-23) 11/14/22 16:00 Creatinine 0.6 mg/dL (0.5-0.9) 11/14/22 16:00 GFR Calculation 99.4 mL/min (90-130) 11/14/22 16:00 Glucose 104 mg/dL (65-115) 11/14/22 16:00 Calculated Osmolality 283 mOsm/kg (285-295) L 11/14/22 16:00 Calcium 9.0 mg/dL (8.5-10.5) 11/14/22 16:00 Total Bilirubin 0.2 mg/dL (0.15-1.2) 11/14/22 16:00 AST 18 U/L (0-32) 11/14/22 16:00 ALT 25 U/L (0-33) 11/14/22 16:00 Alkaline Phosphatase 123 U/L (35-105) H 11/14/22 16:00 Troponin T Baseline 6 ng/L (0-10) 11/14/22 20:05 Troponin T 120 Minute 9.07 ng/L (0-10) 11/14/22 22:09 Delta Troponin T 3.07 ABS# (0-10) 11/14/22 22:09 NT-Pro-B Natriuret Pep 62 pg/mL (0-125) 11/14/22 20:05 Total Protein 6.8 g/dL (6.6-8.7) 11/14/22 16:00 Albumin 4.1 g/dL (3.5-5.2) 11/14/22 16:00 Globulin 2.7 g/dL (1.3-4.6) 11/14/22 16:00 Procalcitonin 0.02 ng/mL (0-0.5) 11/14/22 20:05 Nasal Influ A H1 2008 PCR Not detected (NOT DETECT) 11/14/22 20:04 Adenovirus (PCR) Not detected (NOT DETECT) 11/14/22 20:04 C. pneumoniae DNA (PCR) Not detected (NOT DETECT) 11/14/22 20:04 Coronavirus 229E (PCR) Not detected (NOT DETECT) 11/14/22 20:04 Human Metapneumovir PCR Not detected (NOT DETECT) 11/14/22 20:04 Influenza A (H1) PCR Not detected (NOT DETECT) 11/14/22 20:04 Influenza A (H3) PCR Not detected (NOT DETECT) 11/14/22 20:04 Influenza Type A (PCR) Not detected (NOT DETECT) 11/14/22 20:04 Influenza Type B (PCR) Not detected (NOT DETECT) 11/14/22 20:04 M. pneumoniae (PCR) Not detected (NOT DETECT) 11/14/22 20:04 Parainfluenza 1 (PCR) Not detected (NOT DETECT) 11/14/22 20:04 Parainfluenza 2 (PCR) Not detected (NOT DETECT) 11/14/22 20:04 Parainfluenza 3 (PCR) Not detected (NOT DETECT) 11/14/22 20:04 Parainfluenza 4 (PCR) Not detected (NOT DETECT) 11/14/22 20:04 RSV Type A (PCR) Not detected (NOT DETECT) 11/14/22 20:04 RSV Type B (PCR) Not detected (NOT DETECT) 11/14/22 20:04 Entero/Rhino (PCR) Not detected (NOT DETECT) 11/14/22 20:04 SARS-CoV-2 (PCR) Detected (NOT DETECT) A 11/14/22 20:04 Discharge Plan Discharge Patient Disposition: Placed in Observation Admit Provider: Isaac Musa Clinical Impression: Acute exacerbation of chronic obstructive pulmonary disease (COPD) Discharge Diet: Cardiac Discharge Activity: Increase activity as tolerated Sign Out Sign Out Data: Patient Sign Out occurred on 11/14/22 at 18:20. Patient's care was discussed, and care was transferred from to Kartik Paiz MD. Coding Level of Care Code ED Case Management Social Worker for Satinder Solano
--- NOTE | 2022-11-14 18:14 | XRR_ITS ---
PROCEDURE INFORMATION: Exam: XR Chest Exam date and time: 11/14/2022 6:18 PM Age: 67 years old Clinical indication: Cough; Additional info: Dyspnea/cough TECHNIQUE: Imaging protocol: Radiologic exam of the chest. Views: 1 view. COMPARISON: CR (CHEST, ) 11/10/2022 12:21 AM FINDINGS: Lungs: Scarring or fibrosis in the left lung base is unchanged. No new consolidation. Pleural spaces: Unremarkable. No pleural effusion. No pneumothorax. Heart/Mediastinum: Unremarkable. No cardiomegaly. Bones/joints: Unremarkable. XR/XR chest 1V portable [id number] IMPRESSION: Stable chest. No acute disease.
[2022-11-14] MEDS: albuterol 2.5 mg/3 mL Neb INHALATION ×2 (18:42→20:10)
--- NOTE | 2022-11-14 18:43 | XRR_ITS ---
PROCEDURE INFORMATION: Exam: XR Left Wrist Exam date and time: 11/14/2022 6:47 PM Age: 67 years old Clinical indication: Pain; Wrist; Left TECHNIQUE: Imaging protocol: Radiologic exam of the Left wrist. Views: 3 or more views. COMPARISON: No relevant prior studies available. FINDINGS: Bones/joints: Normal. Soft tissues: Normal. XR/XR wrist LT min 3V* [id number] IMPRESSION: No acute findings.
[2022-11-14] MEDS: acetaminophen 500 mg Tablet 1000 MG PO (18:51)
[2022-11-14] MEDS: morphine 4 mg/mL SDV 1 mL 2 MG IVP (18:51)
--- NOTE | 2022-11-14 19:36 | XRR_ITS ---
PROCEDURE INFORMATION: Exam: XR Left Humerus Exam date and time: 11/14/2022 7:44 PM Age: 67 years old Clinical indication: Pain; Upper arm; Left; Additional info: Pain, atrumatic TECHNIQUE: Imaging protocol: Radiologic exam of the Left humerus. Views: 2 or more views. COMPARISON: CR (CHEST, ) 11/14/2022 6:18 PM FINDINGS: Bones/joints: Normal. Soft tissues: Normal. XR/[place] [id number] IMPRESSION: No acute findings.
--- NOTE | 2022-11-14 19:36 | XRR_ITS ---
PROCEDURE INFORMATION: Exam: XR Left Forearm Exam date and time: 11/14/2022 7:44 PM Age: 67 years old Clinical indication: Pain; Lower or forearm; Left; Additional info: Pain, atraumatic TECHNIQUE: Imaging protocol: Radiologic exam of the Left forearm. Views: 2 views. COMPARISON: CR (UP EX, ) 11/14/2022 6:47 PM FINDINGS: Bones/joints: Normal. Soft tissues: Normal. XR/XR forearm LT 2V [id number] IMPRESSION: No acute findings.
--- NOTE | 2022-11-14 19:36 | ECG_ITS ---
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 Measurements Intervals [place] Rate: 99 P: 75 NE: 155 QRS: 81 QRSD: 94 T: 57 QT: 347 QTc: 445 Interpretive Statements SINUS RHYTHM POSSIBLE ANTERIOR MYOCARDIAL INFARCTION , OF INDETERMINATE AGE [30 ms Q WAVE IN V3/V4, OR R < 0.2 mV IN V4] Compared to ECG 11/14/2022 15:53:04 Sinus tachycardia no longer present Myocardial infarct finding still present Electronically Signed On 11-14-2022 21:43:43 BARREL ASSEMBLER HELPER by Becky Bro M.D. [id number]
[2022-11-14] MEDS: morphine 4 mg/mL SDV 1 mL IVP (20:00)
[2022-11-14] MEDS: levofloxacin-dextrose 5 % 750 MG/150 ML PREMIX 100 MG IV (20:00)
[2022-11-14] MEDS: diazePAM 2 mg Tablet PO (20:30)
[2022-11-14 20:32] LABS: Troponin(5th) Baseline 6 ng/L (0-10)
--- NOTE | 2022-11-14 20:57 | XRR_ITS ---
PROCEDURE INFORMATION: Exam: XR Cervical Spine Exam date and time: 11/14/2022 9:01 PM Age: 67 years old Clinical indication: Neck pain TECHNIQUE: Imaging protocol: Radiologic exam of the cervical spine. Views: 2 or 3 views. COMPARISON: CR XR cervical spine 4-5V [id number] 11/06/2022 12:16 PM FINDINGS: Bones/joints: Study is limited due to positioning with shoulders partially obscuring the C4 level and below and lateral. Mild multilevel degenerative disc disease is seen. No acute displaced fracture. Soft tissues: No prevertebral soft tissue swelling. XR/XR cervical spine 3V* [id number] IMPRESSION: 1. No acute osseous injury. 2. Limited study due to positioning.
--- NOTE | 2022-11-14 20:57 | XRR_ITS ---
PROCEDURE INFORMATION: Exam: XR Thoracic Spine Exam date and time: 11/14/2022 9:05 PM Age: 67 years old Clinical indication: Pain in thoracic spine TECHNIQUE: Imaging protocol: Radiologic exam of the thoracic spine. Views: 3 views. COMPARISON: 1. CR (NECK, ) 11/14/2022 9:01 PM 2. CR (PELVIS, ) 11/14/2022 9:08 PM FINDINGS: Bones/joints: Mild anterior wedge compression deformity of an upper thoracic vertebrae, age indeterminate. Normal alignment. Mild multilevel degenerative disc disease. Soft tissues: Unremarkable. XR/XR thoracic spine 3V* [id number] IMPRESSION: Mild wedge compression deformity of an upper thoracic vertebrae, age indeterminate. Correlate with point tenderness.
--- NOTE | 2022-11-14 20:57 | XRR_ITS ---
PROCEDURE INFORMATION: Exam: XR Lumbosacral Spine Exam date and time: 11/14/2022 9:08 PM Age: 67 years old Clinical indication: Low back pain TECHNIQUE: Imaging protocol: Radiologic exam of the lumbosacral spine. Views: 2 or 3 views. COMPARISON: CR XR lumbar spine min 4V [id number] 08/07/2022 10:55 AM FINDINGS: Bones/joints: Mild right convex scoliosis. Marked multilevel lumbar spinal degenerative disc disease with facet arthritis. No acute displaced fracture. Soft tissues: Unremarkable. XR/XR lumbar spine 2-3V* [id number] IMPRESSION: Degenerative changes. No acute injury.
--- NOTE | 2022-11-14 21:00 | PM.HP ---
Providers/Chief Complaint Primary Care Provider: ALLISON Livingston Chief Complaint: RESPIRATORY DISTRESS History of Present Illness Tika Garcia is a 67 year old female with a past medical history of COPD, MAE on CPAP, anxiety depression, bipolar disorder, history of chronic back pain, who presents [facility] for shortness of breath and back pain. Patient tells me that she was here in the emergency room not too long ago and she was having increased back pain, in the lower back, in between her shoulder blades, and she was given antibiotics, she was given oxycodone, however she cannot have any physician refill her pain medication, and she is supposed to see the pain clinic on the . Nonetheless when she got home she continued to have severe pain in her shoulder blades, in the lower back, with associated shortness of breath due to the pain, now she tells her that she is short of breath at rest, no fevers, chills, has a productive cough Review of Systems Const: Denies: fever(s) or chills Eyes: Denies: change in vision Card: Denies: chest pain Resp: Reports: dyspnea and productive cough GI: Denies: abdominal pain : Denies: flank pain, difficulty voiding or dysuria Musc: Reports: neck pain and back pain Skin/Breast: Reports: rash Neuro: Denies: headache(s) or numbness in extremities Endo: Denies: polyuria Medications/Allergies Home Medications Medication Instructions Recorded Confirmed Last Taken Type aspirin 81 mg tablet,delayed 81 mg PO DAILY 01/08/20 11/14/22 11/14/22 History release (Adult Low Dose Aspirin) compressor, for nebulizer #1 ea 06/28/21 11/14/22 Unknown Rx nebulizer accessories #1 ea 06/28/21 11/14/22 Unknown Rx guaifenesin 1,200 mg tablet, 1,200 mg PO BID PRN congestion 30 02/13/22 11/14/22 11/14/22 Rx extended release 12 hr (Mucinex) days #60 tabs albuterol sulfate 90 mcg/actuation 2 puff inhalation QID PRN 05/14/22 11/14/22 Unknown Rx aerosol inhaler (ProAir HFA) shortness of breath or wheezing 30 days #6.7 grams albuterol sulfate 2.5 mg/3 mL 2.5 mg (3 mL) inhalation QID PRN 07/04/22 11/14/22 Unknown Rx (0.083 %) solution for nebulization shortness of breath or wheezing #75 mL fluticasone propionate 50 2 spray intranasal QDAY PRN 07/27/22 11/14/22 Unknown History mcg/actuation nasal allergy symptoms spray,suspension coenzyme Q10 30 mg capsule (CoQ-10) 30 mg PO DAILY 07/31/22 11/14/22 11/14/22 History pantoprazole 40 mg tablet,delayed 40 mg PO DAILY #30 tabs 08/10/22 11/14/22 11/14/22 Rx release (Protonix) hydroxyzine HCl 25 mg tablet 25 mg PO BID PRN anxiety #60 tabs 08/13/22 11/14/22 Unknown Rx Wheelchair #1 ea 08/16/22 11/14/22 Unknown Rx melatonin 5 mg tablet 5 mg PO BEDTIME PRN sleep #30 tabs 09/07/22 11/14/22 11/13/22 Rx Shaklee Multi Vitamin 1 tab PO DAILY 10/09/22 11/14/22 11/14/22 History aripiprazole 5 mg tablet (Abilify) 5 mg PO QPM 10/09/22 11/14/22 11/13/22 History diphenhydramine HCl 25 mg capsule 50 mg PO DAILY PRN Allergy Symptoms 10/09/22 11/14/22 Unknown History (Benadryl) trazodone 100 mg tablet 100 - 200 mg PO BEDTIME PRN sleep 10/09/22 11/14/22 Unknown History turmeric 400 mg capsule 400 mg PO DAILY 10/09/22 11/14/22 11/14/22 History valbenazine 40 mg capsule 40 mg PO DAILY 10/09/22 11/14/22 11/14/22 History (Ingrezza) oxygen concentrator with portable #1 ea 10/11/22 11/14/22 Unknown Rx gabapentin 300 mg capsule 300 mg PO BID #60 caps 10/31/22 11/14/22 11/14/22 Rx (Neurontin) budesonide 0.5 mg/2 mL suspension 0.5 mg (2 mL) inhalation BID #120 11/08/22 11/14/22 11/14/22 Rx for nebulization mL formoterol fumarate 20 mcg/2 mL 2 ml inhalation BID #120 mL 11/08/22 11/14/22 11/14/22 Rx solution for nebulization revefenacin 175 mcg/3 mL solution 175 mcg (3 mL) inhalation DAILY 11/08/22 11/14/22 11/14/22 Rx for nebulization #90 mL potassium chloride 10 mEq 10 meq PO DAILY #30 caps 11/09/22 11/14/22 11/14/22 Rx capsule,extended release doxycycline hyclate 100 mg tablet 100 mg PO BID 7 days #14 tabs 11/10/22 11/14/22 11/14/22 Rx prednisone 10 mg tablet See Rx Instructions PO .COMPLEX 11/10/22 11/14/22 11/14/22 Rx #36 tabs furosemide 20 mg tablet (Lasix) 40 mg PO DAILY 11/14/22 11/14/22 11/14/22 History lovastatin 20 mg tablet 20 mg PO DAILY 11/14/22 11/14/22 11/13/22 History montelukast 10 mg tablet 10 mg PO DAILY 11/14/22 11/14/22 11/14/22 History (Singulair) Allergies Allergy/AdvReac Type Severity Reaction Status Date / Time cyclobenzaprine Allergy Severe ALGY-Difficulty Verified 11/14/22 13:49 Breathing peanut Allergy Severe Severe Verified 11/14/22 13:49 congestion, Itching & throat swelling Penicillins Allergy Severe ALGY-Anaphy Verified 11/14/22 13:49 laxis ibuprofen Allergy Intermediate ADR-Anxiety Verified 11/14/22 13:49 shellfish derived Allergy Intermediate Scalp Verified 11/14/22 13:49 itching & eyes tearing up. Sulfa (Sulfonamide Allergy Intermediate ALGY-Rash Verified 11/14/22 13:49 Antibiotics) lurasidone [From Latuda] AdvReac Intermediate swollen Verified 11/14/22 13:49 tongue PFSH Acute PFSH: Medical History Anxiety and depression Bipolar 1 disorder, mixed, moderate Bipolar disorder, current episode mixed, unspecified Chronic arthritis Chronic GERD Chronic obstructive pulmonary disease, unspecified Chronic post-traumatic stress disorder Depression, major, recurrent, moderate Dyskinesia, tardive Drug induced Dyslipidemia Environmental and seasonal allergies Major depressive disorder, recurrent episode, moderate with anxious distress Panic disorder with agoraphobia Psychiatric care Unspecified hearing loss, left ear Surgical History H/O esophagogastroduodenoscopy (11/08/21) History of back surgery History of bilateral knee replacement History of colonoscopy within 10 yrs History of D&C History of laparoscopy History of sinus surgery History of tonsillectomy Family History Other Cancer Chronic obstructive pulmonary disease, unspecified Diabetes Heart disease Hyperlipidemia Hypertension Thyroid disease Social History Smoking and tobacco status: current every day smoker cigarettes Packs smoked per day: 1 Years cigarettes smoked: 40 [ Other cigarette details: started at age 16] Quit status (tobacco): not considering quitting Smoking risk assessment/counseling performed?: Yes Alcohol intake: never Lives independently: Yes Household members: none Housing: Apartment Marital status: Single Number of children: 0 Number of grandchildren: 0 Highest education level completed: Some College, No Degree service: No Current occupational status: disabled Pets and animals: No History of recent travel: No Leisure activites: other Leisure activities details: watching television Sexually active: No Current gender identity: Female Sury/Gnosticist: Caodaism Special sury needs: No Agree to transfusion: Yes Financial difficulty paying for basics: Not Very Hard Female Reproductive History: Para: 0 Spontaneous abortions: No Date of menopause: 05/03/04 Vitals/I&O/Wt Last Vital Signs Temp 98.4 F 11/14/22 15:34 Pulse 101 H 11/14/22 20:52 Resp 24 H 11/14/22 20:52 BP 133/87 11/14/22 20:52 Pulse Ox 93 11/14/22 20:52 O2 Del Method 11/14/22 20:52 O2 Flow Rate 3 11/14/22 20:52 Weight last 48 hrs Weight 74.843 kg Physical Exam Const: COMMON NORMALS: no acute distress and patient oriented x3 HENMT: COMMON NORMALS: normocephalic HEAD & SCALP: normocephalic Eye: COMMON NORMALS: Equal, round and reactive pupils present and EOMs intact bilaterally Neck/C-Spine: COMMON NORMALS: no JVD CERVICAL SPINE: Yes pain with cervical ROM, Yes Paracervical muscle tenderness and Yes Paracervical spasm Lymph: LYMPHATIC: no lymphadenopathy noted Resp: COMMON NORMALS: normal respiratory effort, No retractions, No use of accessory muscles and clear to auscultation bilaterally AUSCULTATION: wheezes Cardio: COMMON NORMALS: regular rate, regular rhythm, S1 normal heart sound present and S2 normal heart sound present RATE: regular rate RHYTHM: regular rhythm HEART SOUNDS: S1 normal heart sound present and S2 normal heart sound present GI: COMMON NORMALS: Normal to inspection, nondistended, normoactive bowel sounds present, Soft to palpation and non-tender PALPATION: Yes Soft to palpation Back/Pelvis: THORACIC SPINE/UPPER BACK: Yes pain with ROM, No thoracic spinal tenderness and Yes paraspinal muscle tenderness LUMBAR SPINE/LOWER BACK: Yes pain with ROM, No lumbar spinal tenderness, Yes paraspinal muscle tenderness and Yes paraspinal muscle spasm Extremity: COMMON NORMALS: no calf tenderness and no pedal edema Neuro: COMMON NORMALS: patient oriented x3, CN's II-XII intact bilaterally, moves all extremities and no focal motor deficits Psych: COMMON NORMALS: mental status grossly normal Data 11/14/22 16:00 11/14/22 16:00 A&P Assessment and plan (1) Back pain: Qualifiers: Back pain laterality: bilateral Back pain location: thoracic back pain Chronicity: acute Qualified Code(s): M54.6 - Pain in thoracic spine (2) COPD (chronic obstructive pulmonary disease): (3) Obstructive sleep apnea: (4) Acute exacerbation of chronic obstructive pulmonary disease (COPD): (5) DDD (degenerative disc disease), lumbosacral: (6) Chronic gastroesophageal reflux disease: Plan COPD exacerbation -CT angiogram negative for pulmonary embolism, did show mild centrilobular emphysema, patchy opacities in the right posterior costophrenic recess -Smoker -We will admit to general medical floors -MAE CPAP -Continue Solu-Medrol 40 every 8 hours -Continue DuoNeb -Continue Levaquin -Follow blood cultures, sputum cultures -Full code -Lovenox for DVT prophylaxis Acute on chronic back pain -X-ray cervical, lumbar, thoracic spine -We will start oxycodone -Monitor respiratory status closely Attestations Medical Necessity Statement*: Patient requires hospitalization, outpatient with observation, for shortness of breath, back pain Coding Level of Care Code Acute Shirt Cleaner for Chg Fwd Diagnoses Back pain M54.6 Back pain laterality: bilateral Back pain location: thoracic back pain Chronicity: acute COPD (chronic obstructive pulmonary disease) J44.9 Obstructive sleep apnea G47.33 Acute exacerbation of chronic obstructive pulmonary disease (COPD) J44.1 DDD (degenerative disc disease), lumbosacral M51.37 Chronic gastroesophageal reflux disease K21.9
[2022-11-14 21:24] LABS: NT Pro B Type Natriuretic Pept 62 pg/mL (0-125); Procalcitonin 0.02 ng/mL (0-0.5)
[2022-11-14 22:08] LABS: Adenovirus Not Detected (NOT DETECT); Chlamydia Pneumoniae Not Detected (NOT DETECT); Coronavirus 229E,HKU1,NL63,OC4 Not Detected (NOT DETECT); Human Metapneumovirus Not Detected (NOT DETECT); Human Rhinovirus/Enterovirus Not Detected (NOT DETECT); Influenza A Not Detected (NOT DETECT); Influenza A H1 Not Detected (NOT DETECT); Influenza A H1-2009 Not Detected (NOT DETECT); Influenza A H3 Not Detected (NOT DETECT); Influenza B Not Detected (NOT DETECT); Mycoplasma Pneumoniae Not Detected (NOT DETECT); Parainfluenza Virus Type 1 Not Detected (NOT DETECT); Parainfluenza Virus Type 2 Not Detected (NOT DETECT); Parainfluenza Virus Type 3 Not Detected (NOT DETECT); Parainfluenza Virus Type 4 Not Detected (NOT DETECT); Respiratory Syncytial Virus A Not Detected (NOT DETECT); Respiratory Syncytial Virus B Not Detected (NOT DETECT); SARS-COV-2 Detected (NOT DETECT)
[2022-11-14 23:27] LABS: Troponin 5 2HR 9.07 ng/L (0-10)
[2022-11-14 23:37] LABS: Troponin 5 2HR Delta 3.07 ABS# (0-10)
[2022-11-15] VITALS (13 sets, daily range): BP systolic 117–146; BP diastolic 73–82; PULSE 95–125; RESP 16–28; TEMP 36.4–36.8; O2SAT 91–99
[2022-11-15] MEDS: ipratropium-albuterol 3 mL Neb INHALATION ×4 (02:32→20:21)
[2022-11-15] MEDS: enoxaparin 40 mg/0.4 mL Syringe SUBCUT (02:40)
[2022-11-15] MEDS: trazodone 100 mg Tablet PO ×2 (02:40→21:11)
[2022-11-15] MEDS: acetaminophen 325 mg Tablet 650 MG PO ×2 (02:41→19:33)
[2022-11-15 02:53] LABS: Basophils % 0.2 %; Hematocrit 38.4 % (37.0-47.0); Hemoglobin 12.3 g/dL (11.5-15.3); Lymphocytes # 1.5 10^3/uL (0.8-4.8); Lymphocytes % 12.4 %; Mean Corpuscular Hemoglobin 29.9 pg (28.0-34.0); Mean Corpuscular Volume 93.2 fl (81-99); Mean Platelet Volume 8.9 fL (7.4-10.4); Monocytes # 0.5 10^3/uL (0.2-0.9); Monocytes % 3.8 %; Neutrophils # 10.04 10^3/uL (1.8-7.7); Neutrophils % 83.1 %; Nucleated Red Blood Cells % 0 %; Platelet Count 366 10^3/cmm (130-400); Red Blood Count 4.12 10^6/uL (4.1-5.3); Red Cell Distribution Width 12.7 % (12.1-15.1); White Blood Count 12.1 10^3/uL (4.0-10.0)
[2022-11-15] MEDS: remdesivir 200 MG in sodium chloride 0.9% (100 ml) 60 ML 100 MG IV (02:55)
[2022-11-15 03:23] LABS: Troponin 5 6HR 9.62 ng/L (0-10)
[2022-11-15 03:26] LABS: Anion Gap 16.1 (5-19); Blood Urea Nitrogen 11 mg/dL (8-23); Calcium 8.8 mg/dL (8.5-10.5); Carbon Dioxide 28 mmol/L (22-29); Chloride 97 mmol/L (98-107); Glomerular Filtration Rate 122.7 mL/min (90-130); Glucose 113 mg/dL (65-115); Osmolality Calculated 284 mOsm/kg (285-295); Potassium 4.1 mmol/L (3.5-5.1); Sodium 137 mmol/L (136-145)
[2022-11-15 04:13] LABS: Troponin 5 6HR Delta 3.62 ng/L (0-12)
[2022-11-15] MEDS: budesonide 0.5 mg/2 mL Neb INHALATION (08:07)
--- NOTE | 2022-11-15 08:22 | P.PN_ITS ---
Subjective Subjective: Anxious however she is doing well on 3 L She calmed down after 2 to 3 minutes of counseling She is afebrile Vitals/I&O/Wt Last Vital Signs Temp 97.8 F 11/15/22 03:42 Pulse 106 H 11/15/22 08:13 Resp 18 11/15/22 08:08 BP 117/74 11/15/22 03:42 Pulse Ox 95 11/15/22 08:08 O2 Del Method 11/15/22 08:08 O2 Flow Rate 3 11/15/22 08:08 11/14/22 11/15/22 11/15/22 22:59 06:59 14:59 Intake Total 150 / 150 100 / 250 Balance 150 / 150 100 / 250 Weight last 48 hrs Weight 74.843 kg Physical Exam Narrative: Patient is sitting comfortably in her bed By breath sounds with mild rhonchi at the base Currently on 3 L Slightly anxious Very pleasant and cooperative S1, S2 sinus tachycardia Abdomen soft 1+ edema of legs Data 11/15/22 02:41 11/15/22 02:41 Micro: Microbiology 11/14/22 22:09 Blood Culture - Preliminary Blood SPECIMEN COLLECTED 11/14/22 22:12 Blood Culture - Preliminary Blood SPECIMEN COLLECTED A&P Assessment and plan (1) Back pain: Qualifiers: Back pain laterality: bilateral Back pain location: thoracic back pain Chronicity: acute Qualified Code(s): M54.6 - Pain in thoracic spine (2) Localized swelling, mass and lump, lower limb, bilateral: (3) COVID: (4) COPD (chronic obstructive pulmonary disease): Plan Mild COPD exacerbation related to COVID-19 Empirical treatment with Levaquin Continue Decadron and remdesivir Patient had received first vaccination without repeat booster dosages Patient lives alone, her medical power of warehouse record clerk is with the city planning engineer She lives alone She has a caregiver Follows up with Dr. Albarran outpatient Full code Mild wedge compression upper thoracic vertebra Patient also has mild CHF exacerbation EF is unknown Will continue Lasix Check echo Full code Cardiac DVT prophylaxis on hold Attestations Medical Necessity Statement*: Continue medical management Time Spent in Patient Care: 30 Coding Level of Care Code Acute Warehouse Laborer for [facility] Fwd Diagnoses Back pain M54.6 Back pain laterality: bilateral Back pain location: thoracic back pain Chronicity: acute Localized swelling, mass and lump, lower limb, bilateral R22.43 COVID U07.1 COPD (chronic obstructive pulmonary disease) J44.9
[2022-11-15] MEDS: montelukast sodium 10 mg Tablet PO (12:26)
[2022-11-15] MEDS: atorvastatin 40 mg Tablet 20 MG PO (12:27)
[2022-11-15] MEDS: aspirin 81 mg EC Tablet PO (12:27)
[2022-11-15] MEDS: FUROsemide 20 mg Tablet 40 MG PO (12:27)
[2022-11-15] MEDS: pantoprazole DR 40 mg Tablet PO (12:28)
[2022-11-15] MEDS: potassium chloride ER 10 mEq Tablet PO (12:28)
[2022-11-15] MEDS: gabapentin 300 mg Capsule PO ×2 (12:28→19:10)
[2022-11-15] MEDS: dexamethasone 4 mg Tablet 6 MG PO (12:29)
[2022-11-15] MEDS: ARIPiprazole 10 mg Tablet 5 MG PO (19:09)
[2022-11-15] MEDS: hyDROXYzine 25 mg Capsule PO (19:32)
[2022-11-15] MEDS: guaiFENesin 600 mg Tablet 1200 MG PO (19:32)
[2022-11-15] MEDS: levofloxacin-dextrose 5 % 750 MG/150 ML PREMIX 100 MG IV (21:11)
[2022-11-16] VITALS (15 sets, daily range): BP systolic 109–164; BP diastolic 67–85; PULSE 86–114; RESP 16–20; TEMP 36.6–36.8; O2SAT 92–99
[2022-11-16] MEDS: oxyCODONE 5 mg IR Tab/Cap PO ×2 (02:19→21:20)
[2022-11-16] MEDS: enoxaparin 40 mg/0.4 mL Syringe SUBCUT (02:19)
[2022-11-16] MEDS: ipratropium-albuterol 3 mL Neb INHALATION ×4 (03:19→20:48)
[2022-11-16] MEDS: acetaminophen 325 mg Tablet 650 MG PO (05:47)
[2022-11-16] MEDS: remdesivir 100 MG in sodium chloride 0.9% (100 ml) 80 ML IV (05:48)
[2022-11-16 06:05] LABS: Basophils % 0.2 %; Eosinophils % 0.2 %; Hematocrit 38.1 % (37.0-47.0); Lymphocytes # 3.6 10^3/uL (0.8-4.8); Lymphocytes % 23.8 %; Mean Corpuscular HGB Conc 31.5 g/dL (30.0-36.0); Mean Corpuscular Hemoglobin 29.8 pg (28.0-34.0); Mean Corpuscular Volume 94.5 fl (81-99); Mean Platelet Volume 8.8 fL (7.4-10.4); Monocytes # 1.1 10^3/uL (0.2-0.9); Monocytes % 7.3 %; Neutrophils # 10.17 10^3/uL (1.8-7.7); Nucleated Red Blood Cells % 0 %; Platelet Count 349 10^3/cmm (130-400); Red Blood Count 4.03 10^6/uL (4.1-5.3); Red Cell Distribution Width 12.8 % (12.1-15.1)
[2022-11-16 06:22] LABS: D Dimer 1.42 ug/mIFEU (0-0.59)
[2022-11-16 06:32] LABS: Anion Gap 12.1 (5-19); Blood Urea Nitrogen 16 mg/dL (8-23); Calcium 8.7 mg/dL (8.5-10.5); Carbon Dioxide 31 mmol/L (22-29); Chloride 100 mmol/L (98-107); Glomerular Filtration Rate 99.4 mL/min (90-130); Glucose 87 mg/dL (65-115); Osmolality Calculated 289 mOsm/kg (285-295); Potassium 4.1 mmol/L (3.5-5.1); Sodium 139 mmol/L (136-145)
--- NOTE | 2022-11-16 06:55 | CT_ITS ---
WS: [id number] CTA OF THE CHEST WITH PULMONARY EMBOLISM PROTOCOL TECHNIQUE: High-resolution contrast enhanced CTA of the chest with coronal and sagittal reformatted i mages with pulmonary embolism protocol. MIP images are also reviewed. CLINICAL INFORMATION: hypoxia COMPARISON: CTA November 10, 2022 DLP: 330.[address] scans at [facility] use at least one of these dose optimization techniques: automated e xposure control; mA and/or kV adjustment per patient size (includes targeted exams where dose is matc hed to clinical indication); or iterative reconstruction. FINDINGS: Proximal main pulmonary arteries are normal. Normal segmental and subsegmental pulmonary arteries. No evidence of pulmonary embolus.Mild chronic emphysematous changes. No acute pulmonary infiltrates. No focal pneumonia or pleural fluid. Bilateral Bochdalek hernias. Normal caliber thoracic aorta. No mediastinal or hilar lymphadenopathy. No axillary lymphadenopathy. Thickening of the LEFT adrenal gland unchanged. Normal RIGHT adrenal gland. Small esophageal hiatal h ernia. Anterior wedging with mild compression superior endplate at T5 slightly progressed compared to November 10, 2022. Loss of approximately 40% vertebral body height. CT/CT angio chest PE protcl [id number] IMPRESSION: 1. No evidence of pulmonary embolus. 2. No acute pulmonary infiltrates. 3. Mild compression superior endplate T5 has progressed since November 10, 2022 with anterior wedging. Loss of approximately 40% vertebral body height. No ret ropulsion.
[2022-11-16] MEDS: iohexol 350 mg/mL 500 mL Btl (per mL) IV (09:03)
--- NOTE | 2022-11-16 09:05 | PM.PN ---
Subjective Subjective: This morning patient is on 3 L She asked me to add trazodone hydroxyzine and melatonin for her sleeping aid no Significant worsening of respiratory status Still wheezing Vitals/I&O/Wt Last Vital Signs Temp 98.2 F 11/16/22 08:00 Pulse 98 11/16/22 08:24 Resp 18 11/16/22 08:20 BP 134/85 11/16/22 08:00 Pulse Ox 97 11/16/22 08:24 O2 Del Method 11/16/22 08:20 O2 Flow Rate 3 11/16/22 08:20 11/15/22 11/16/22 11/16/22 22:59 06:59 14:59 Intake Total 150 / 390 100 / 490 Balance 150 / 390 100 / 490 Weight last 48 hrs Weight 74.843 kg Physical Exam Narrative: Wheezing positive Currently on 3 L Asking for sleeping good Abdomen soft Euvolemic Awake and alert Anxious appearing S1, S2 Data 11/16/22 05:55 11/16/22 05:55 Micro: Microbiology 11/14/22 22:12 Blood Culture - Preliminary Blood NEGATIVE TO DATE 11/14/22 22:09 Blood Culture - Preliminary Blood NEGATIVE TO DATE 11/15/22 00:19 MRSA Culture - Final Nose A&P Assessment and plan (1) COVID: (2) Back pain: Qualifiers: Back pain laterality: bilateral Back pain location: thoracic back pain Chronicity: acute Qualified Code(s): M54.6 - Pain in thoracic spine (3) Dry throat: (4) COPD (chronic obstructive pulmonary disease): (5) Chronic gastroesophageal reflux disease: (6) Panic disorder with agoraphobia: (7) Chronic post-traumatic stress disorder: Plan Chronic hypoxia currently at home regimen of 3 L, actively wheezing She is on Decadron and remdesivir DVT prophylaxis: With Lovenox She is also getting Lasix on daily basis She does have hydroxyzine 25 mg twice daily on as needed basis, she is getting levofloxacin empirically I will add trazodone for her bedtime Full code Most likely she will be able to go home over this weekend Attestations Medical Necessity Statement*: Discharge this weekend Time Spent in Patient Care: 30 Coding Level of Care Code Acute Code for Chg Fwd Diagnoses COVID U07.1 Back pain M54.6 Back pain laterality: bilateral Back pain location: thoracic back pain Chronicity: acute Dry throat J39.2 COPD (chronic obstructive pulmonary disease) J44.9 Chronic gastroesophageal reflux disease K21.9 Panic disorder with agoraphobia F40.01 Chronic post-traumatic stress disorder F43.12
[2022-11-16] MEDS: montelukast sodium 10 mg Tablet PO (11:02)
[2022-11-16] MEDS: dexamethasone 4 mg Tablet 6 MG PO (11:02)
[2022-11-16] MEDS: gabapentin 300 mg Capsule PO ×2 (11:03→18:20)
[2022-11-16] MEDS: potassium chloride ER 10 mEq Tablet PO (11:04)
[2022-11-16] MEDS: aspirin 81 mg EC Tablet PO (11:04)
[2022-11-16] MEDS: atorvastatin 40 mg Tablet 20 MG PO (11:04)
[2022-11-16] MEDS: pantoprazole DR 40 mg Tablet PO (11:04)
[2022-11-16] MEDS: FUROsemide 20 mg Tablet 40 MG PO (11:05)
--- NOTE | 2022-11-16 12:30 | PC.CHAP ---
Pastoral Care Encounter/Spiritual Assessment Type of Contact [] Declined airport duty manager visit [] Patient/Family/Request visit [] Outpatient visit [] Follow-up visit [] Physician referral [] Code/Alert [x] Routine visit [] Staff referral [] Actively dying [] Patient sleeping [] Family support [] [] Out of room [] Palliative care [] [] Receiving care in room [] Pre-surgical visit [] Trauma [] Long length of stay [] ICU visit [] Other: Relational/Emotional Strength [] Patient feels connected with others/family/visitors/staff [] Distress [] Loneliness/isolation [] Abandonment Spirituality of Patient [] Person of Sury [] Attends Sikhism of their Sury [] Believes in Prayer [] Reads Bible or Jew materials [] There are Spiritual issues to be addressed Asset Card Clerk Interventions [x] Prayer [] Active listening [] Non-anxious presence [] Spiritual/emotional support [] Crisis/trauma care [] Spiritual counseling [] Bereavement support [] Provided bereavement packet [] Provided Bible/devotional materials [] Provided toy/stuffed animal, coloring book to patient or family member [] Provided Communion [] Anointing/[place] [] Salvation [x] Completed spiritual assessment [] Other: Impact on Illness or Injury [] Angry [] Fearful [] Anxious [] Often cries [] Exhaustion [] Unable to work [] Unable to attend baptism [] Unable to walk/stand [] Unable to read [] Unable to drive [] Unable to eat/drink [] Unable to sleep [] Unable to be with family [] Patient intubated [] Other: Summary Time spent with patient
[2022-11-16] MEDS: hyDROXYzine 25 mg Capsule PO ×2 (13:52→21:53)
[2022-11-16] MEDS: guaiFENesin 600 mg Tablet 1200 MG PO (13:55)
[2022-11-16] MEDS: ARIPiprazole 10 mg Tablet 5 MG PO (18:21)
[2022-11-16] MEDS: polyethylene glycol 3350 Pkt 17 gm PO (21:19)
[2022-11-16] MEDS: trazodone 100 mg Tablet PO (21:20)
[2022-11-16] MEDS: levofloxacin-dextrose 5 % 750 MG/150 ML PREMIX 100 MG IV (21:21)
[2022-11-17] VITALS (9 sets, daily range): BP systolic 113–126; BP diastolic 75–76; PULSE 86–98; RESP 15–19; TEMP 36.4–37.1; O2SAT 85–99
[2022-11-17] MEDS: enoxaparin 40 mg/0.4 mL Syringe SUBCUT (01:31)
[2022-11-17] MEDS: acetaminophen 325 mg Tablet 650 MG PO (01:32)
[2022-11-17] MEDS: ipratropium-albuterol 3 mL Neb INHALATION ×2 (02:47→07:44)
[2022-11-17] MEDS: oxyCODONE 5 mg IR Tab/Cap PO (04:02)
[2022-11-17 05:57] LABS: Anion Gap 13.8 (5-19); Blood Urea Nitrogen 16 mg/dL (8-23); Calcium 9.1 mg/dL (8.5-10.5); Carbon Dioxide 32 mmol/L (22-29); Chloride 96 mmol/L (98-107); Glomerular Filtration Rate 99.4 mL/min (90-130); Glucose 82 mg/dL (65-115); Osmolality Calculated 286 mOsm/kg (285-295); Potassium 3.8 mmol/L (3.5-5.1); Sodium 138 mmol/L (136-145)
[2022-11-17] MEDS: remdesivir 100 MG in sodium chloride 0.9% (100 ml) 80 ML IV (06:24)
[2022-11-17] MEDS: aspirin 81 mg EC Tablet PO (08:39)
[2022-11-17] MEDS: potassium chloride ER 10 mEq Tablet PO (08:40)
[2022-11-17] MEDS: gabapentin 300 mg Capsule PO (08:40)
[2022-11-17] MEDS: pantoprazole DR 40 mg Tablet PO (08:40)
[2022-11-17] MEDS: atorvastatin 40 mg Tablet 20 MG PO (08:40)
[2022-11-17] MEDS: dexamethasone 4 mg Tablet 6 MG PO (08:40)
[2022-11-17] MEDS: montelukast sodium 10 mg Tablet PO (08:40)
[2022-11-17] MEDS: FUROsemide 20 mg Tablet 40 MG PO (08:40)
--- NOTE | 2022-11-17 10:00 | PM.DCS ---
Discharge Providers Date of Admission: 11/15/22 00:28 Date of Discharge: November 17, 2022 Attending Provider at Admission: Isaac Musa MD Attending Provider at Discharge: Ximena Smith MD Primary Care Provider: ALLISON Livingston Diagnoses at Discharge Discharge Diagnosis (1) COVID: Status: Acute (2) Back pain: Status: Acute Qualifiers: Back pain laterality: bilateral Back pain location: thoracic back pain Chronicity: acute Qualified Code(s): M54.6 - Pain in thoracic spine (3) Dry throat: Status: Acute (4) COPD (chronic obstructive pulmonary disease): Status: Acute (5) Chronic gastroesophageal reflux disease: Status: Acute (6) Panic disorder with agoraphobia: Status: Chronic (7) Chronic post-traumatic stress disorder: Status: Chronic Reason for Visit Reason for Visit: RESPIRATORY DISTRESS Hospital Course Hospital Course 67-year female with oxygen dependent COPD uses 3 L of oxygen at home presented to the hospital for worsening of shortness of breath. She was diagnosed with COVID-19, fortunately her oxygen requirement did not worsen over the course of period, she received Decadron and remdesivir, her wheezing improved with Decadron use. Patient will be able to go home on empirical antibiotic treatment after home oxygen evaluation. I did tell her as long as her home oxygen evaluation is below 5 L it is safe for her to go home Her symptoms started roughly a week before her presentation in the ER, she does not need to quarantine for now, she remained afebrile, no hemodynamic instability, BMP is normal. CTA ruled out PE. He does have compression fracture of T5, no signs of spinal cord compression Physical Exam Narrative: No active wheezing Currently on 3 L Calm and cooperative Awake and alert Euvolemic S1, S2 Appropriate mood and affect Discharge Data Studies Completed and Pending Completed Studies During Hospitalization Category Date Time Status CTA PE [CT angio chest PE protcl [id number]] Routine Cat Scan 11/16/22 06:55 Completed XR cervical spine 3V* [id number] Stat Exams 11/14/22 20:57 Completed XR chest 1V portable [id number] Stat Exams 11/14/22 18:14 Completed XR forearm LT 2V [id number] Stat Exams 11/14/22 19:36 [place] [id number] Stat Exams 11/14/22 19:36 Completed XR lumbar spine 2-3V* [id number] Stat Exams 11/14/22 20:57 Completed XR thoracic spine 3V* [id number] Stat Exams 11/14/22 20:57 Completed XR wrist LT min 3V* [id number] Stat Exams 11/14/22 18:43 Completed Pending at discharge Category Date Time Status Blood Culture Stat Lab 11/14/22 22:09 Results Sputum Culture and Gram Stain Stat Lab 11/14/22 21:09 Uncollected Radiology Impressions Chest X-Ray 11/14/22 18:14 IMPRESSION: Stable chest. No acute disease. Wrist X-Ray 11/14/22 18:43 IMPRESSION: No acute findings. Forearm X-Ray 11/14/22 19:36 IMPRESSION: No acute findings. Humerus X-Ray 11/14/22 19:36 IMPRESSION: No acute findings. Cervical Spine X-Ray 11/14/22 20:57 IMPRESSION: 1. No acute osseous injury. 2. Limited study due to positioning. Lumbar Spine X-Ray 11/14/22 20:57 IMPRESSION: Degenerative changes. No acute injury. Thoracic Spine X-Ray 11/14/22 20:57 IMPRESSION: Mild wedge compression deformity of an upper thoracic vertebrae, age indeterminate. Correlate with point tenderness. Chest CTA 11/16/22 06:55 IMPRESSION: 1. No evidence of pulmonary embolus. 2. No acute pulmonary infiltrates. 3. Mild compression superior endplate T5 has progressed since November 10, 2022 with anterior wedging. Loss of approximately 40% vertebral body height. No retropulsion. Laboratory Results WBC 15.0 10^3/uL (4.0-10.0) H 11/16/22 05:55 RBC 4.03 10^6/uL (4.1-5.3) L 11/16/22 05:55 Hgb 12.0 g/dL (11.5-15.3) 11/16/22 05:55 Hct 38.1 % (37.0-47.0) 11/16/22 05:55 MCV 94.5 fl (81-99) 11/16/22 05:55 MCH 29.8 pg (28.0-34.0) 11/16/22 05:55 MCHC 31.5 g/dL (30.0-36.0) 11/16/22 05:55 RDW 12.8 % (12.1-15.1) 11/16/22 05:55 Plt Count 349 10^3/cmm (130-400) 11/16/22 05:55 MPV 8.8 fL (7.4-10.4) 11/16/22 05:55 Neut % (Auto) 68.0 % 11/16/22 05:55 Lymph % (Auto) 23.8 % 11/16/22 05:55 [place] % (Auto) 7.3 % 11/16/22 05:55 Eos % (Auto) 0.2 % 11/16/22 05:55 Baso % (Auto) 0.2 % 11/16/22 05:55 Neut # (Auto) 10.17 10^3/uL (1.8-7.7) H 11/16/22 05:55 Lymph # (Auto) 3.6 10^3/uL (0.8-4.8) 11/16/22 05:55 [place] # (Auto) 1.1 10^3/uL (0.2-0.9) H 11/16/22 05:55 Eos # (Auto) 0.0 10^3/uL (0.0-0.8) 11/16/22 05:55 Baso # (Auto) 0.0 10^3/uL (0.0-0.1) 11/16/22 05:55 Nucleated RBC % (auto) 0 % 11/16/22 05:55 Nucleated RBCs # 0.0 /100WBC 11/16/22 05:55 D-Dimer 1.42 ug/mIFEU (0-0.59) H 11/16/22 05:55 Specimen Type Arterial 11/14/22 16:10 Sample Site Radial, left 11/14/22 16:10 ABG pH 7.45 (7.35-7.45) 11/14/22 16:10 ABG pCO2 46.6 mmHg (35-45) H 11/14/22 16:10 ABG pO2 76.0 mmHg (80.0-100.0) L 11/14/22 16:10 ABG HCO3 32.7 mmol/L (22-26) H 11/14/22 16:10 ABG O2 Saturation 96.7 11/14/22 16:10 ABG Base Excess 7.6 mmol/L (-2.0-2.0) H 11/14/22 16:10 Tomás Test Pos 11/14/22 16:10 A-a O2 Gradient 12.1 mmHg (5-10) H 11/14/22 16:10 Hematocrit 39.3 % (37-47) 11/14/22 16:10 Hgb O2 Saturation 93.3 % (95-100) L 11/14/22 16:10 Carboxyhemoglobin 3.2 %THgb (0.4-20.1) 11/14/22 16:10 Methemoglobin 0.4 % (0.4-1.5) 11/14/22 16:10 Total Hemoglobin 12.8 g/dL (12-16) 11/14/22 16:10 Sodium 140.0 mmol/L (131-143) 11/14/22 16:10 Potassium 3.9 mmol/L (3.5-5.0) 11/14/22 16:10 Glucose 106.0 mg/dL (70-115) 11/14/22 16:10 Ionized Calcium 1.2 mmol/L (1.1-1.4) 11/14/22 16:10 O2 Delivery Device Nc 11/14/22 16:10 O2 Liters/Min 3.0 % 11/14/22 16:10 FiO2 32.0 % 11/14/22 16:10 Rubber Block Layer ID [place] 11/14/22 16:10 Sodium 138 mmol/L (136-145) 11/17/22 04:06 Potassium 3.8 mmol/L (3.5-5.1) 11/17/22 04:06 Chloride 96 mmol/L (98-107) L 11/17/22 04:06 Carbon Dioxide 32 mmol/L (22-29) H 11/17/22 04:06 Anion Gap 13.8 (5-19) 11/17/22 04:06 BUN 16 mg/dL (8-23) 11/17/22 04:06 Creatinine 0.6 mg/dL (0.5-0.9) 11/17/22 04:06 GFR Calculation 99.4 mL/min (90-130) 11/17/22 04:06 Glucose 82 mg/dL (65-115) 11/17/22 04:06 Calculated Osmolality 286 mOsm/kg (285-295) 11/17/22 04:06 Calcium 9.1 mg/dL (8.5-10.5) 11/17/22 04:06 Total Bilirubin 0.2 mg/dL (0.15-1.2) 11/14/22 16:00 AST 18 U/L (0-32) 11/14/22 16:00 ALT 25 U/L (0-33) 11/14/22 16:00 Alkaline Phosphatase 123 U/L (35-105) H 11/14/22 16:00 Troponin T Baseline 6 ng/L (0-10) 11/14/22 20:05 Troponin T 120 Minute 9.07 ng/L (0-10) 11/14/22 22:09 Delta Troponin T 3.07 ABS# (0-10) 11/14/22 22:09 Troponin T Hi Sens 6Hr 9.62 ng/L (0-10) 11/15/22 02:41 Troponin T Hi Sens 6Hr Delta 3.62 ng/L (0-12) 11/15/22 02:41 NT-Pro-B Natriuret Pep 62 pg/mL (0-125) 11/14/22 20:05 Total Protein 6.8 g/dL (6.6-8.7) 11/14/22 16:00 Albumin 4.1 g/dL (3.5-5.2) 11/14/22 16:00 Globulin 2.7 g/dL (1.3-4.6) 11/14/22 16:00 Procalcitonin 0.02 ng/mL (0-0.5) 11/14/22 20:05 Nasal Influ A H1 2008 PCR Not detected (NOT DETECT) 11/14/22 20:04 Adenovirus (PCR) Not detected (NOT DETECT) 11/14/22 20:04 C. pneumoniae DNA (PCR) Not detected (NOT DETECT) 11/14/22 20:04 Coronavirus 229E (PCR) Not detected (NOT DETECT) 11/14/22 20:04 Human Metapneumovir PCR Not detected (NOT DETECT) 11/14/22 20:04 Influenza A (H1) PCR Not detected (NOT DETECT) 11/14/22 20:04 Influenza A (H3) PCR Not detected (NOT DETECT) 11/14/22 20:04 Influenza Type A (PCR) Not detected (NOT DETECT) 11/14/22 20:04 Influenza Type B (PCR) Not detected (NOT DETECT) 11/14/22 20:04 M. pneumoniae (PCR) Not detected (NOT DETECT) 11/14/22 20:04 Parainfluenza 1 (PCR) Not detected (NOT DETECT) 11/14/22 20:04 Parainfluenza 2 (PCR) Not detected (NOT DETECT) 11/14/22 20:04 Parainfluenza 3 (PCR) Not detected (NOT DETECT) 11/14/22 20:04 Parainfluenza 4 (PCR) Not detected (NOT DETECT) 11/14/22 20:04 RSV Type A (PCR) Not detected (NOT DETECT) 11/14/22 20:04 RSV Type B (PCR) Not detected (NOT DETECT) 11/14/22 20:04 Entero/Rhino (PCR) Not detected (NOT DETECT) 11/14/22 20:04 SARS-CoV-2 (PCR) Detected (NOT DETECT) A 11/14/22 20:04 Vitals Last Vital Signs Temp 98.3 F 11/17/22 08:00 Pulse 86 11/17/22 08:00 Resp 18 11/17/22 08:00 BP 123/76 11/17/22 08:00 Pulse Ox 97 11/17/22 08:00 O2 Del Method 11/17/22 08:00 O2 Flow Rate 3 11/17/22 07:46 Discharge Plan Discharge Patient Disposition: Home Condition: Stable Prescriptions: Continued aspirin [Adult Low Dose Aspirin] 81 mg tablet,delayed release (DR/EC) 81 mg PO DAILY (DME) nebulizer accessories Kit See Rx Instructions .Route Qty: 1 0RF Rx Instructions: As directed (DME) compressor, for nebulizer Device See Rx Instructions .Route Qty: 1 0RF Rx Instructions: As directed Mucinex 1,200 mg tablet extended release 12hr 1,200 mg PO BID PRN (Reason: congestion) 30 Days Qty: 60 5RF budesonide 0.5 mg/2 mL suspension for nebulization 0.5 mg inhalation BID Qty: 120 11RF formoterol fumarate 20 mcg/2 mL solution for nebulization 2 ml inhalation BID Qty: 120 11RF revefenacin 175 mcg/3 mL solution for nebulization 175 mcg inhalation DAILY Qty: 90 11RF hydroxyzine HCl 25 mg tablet 25 mg PO BID PRN (Reason: anxiety) Qty: 60 3RF (DME) Wheelchair See Rx Instructions .Route .MEDSUPPLY Qty: 1 0RF Rx Instructions: As directed fluticasone propionate 50 mcg/actuation spray,suspension 2 spray INTRANASAL QDAY PRN (Reason: allergy symptoms) albuterol sulfate 2.5 mg /3 mL (0.083 %) solution for nebulization 2.5 mg inhalation QID PRN (Reason: shortness of breath or wheezing) Qty: 75 5RF (DME) oxygen concentrator with portable See Rx Instructions .Route .MEDSUPPLY Qty: 1 0RF Rx Instructions: as directed, 2L nasal cannula, oxygen concentrator with portable concentrator albuterol sulfate [ProAir HFA] 90 mcg/actuation HFA aerosol inhaler 2 puff INHALATION QID PRN (Reason: shortness of breath or wheezing) 30 Days Qty: 6.7 5RF pantoprazole [Protonix] 40 mg tablet,delayed release (DR/EC) 40 mg PO DAILY Qty: 30 5RF melatonin 5 mg tablet 5 mg PO BEDTIME PRN (Reason: sleep) Qty: 30 3RF gabapentin [Neurontin] 300 mg capsule 300 mg PO BID Qty: 60 2RF potassium chloride 10 mEq capsule, extended release 10 meq PO DAILY Qty: 30 3RF coenzyme Q10 [CoQ-10] 30 mg Capsule 30 mg PO DAILY Shaklee Multi Vitamin 1 tab PO DAILY diphenhydramine HCl [Benadryl] 25 mg capsule 50 mg PO DAILY PRN (Reason: Allergy Symptoms) aripiprazole [Abilify] 5 mg tablet 5 mg PO QPM turmeric 400 mg Capsule 400 mg PO DAILY trazodone 100 mg tablet 100 - 200 mg PO BEDTIME PRN (Reason: sleep) Ingrezza 40 mg capsule 40 mg PO DAILY Singulair 10 mg tablet 10 mg PO DAILY Lasix 20 mg tablet 40 mg PO DAILY lovastatin 20 mg tablet 20 mg PO DAILY prednisone 10 mg tablet See Rx Instructions .ROUTE .COMPLEX Qty: 36 0RF Rx Instructions: prednisone 5 mg: take 8 tablets (40 mg) on Day 1; 7 tablets (35 mg) on Day 2; then decrease by 1 tablet every day until finished doxycycline hyclate 100 mg tablet 100 mg PO BID 7 Days Qty: 14 0RF Discharge Orders: Discharge Order (Routine); Ordered 11/17/22 Ordered By: Ximena Smith Referrals: Tracey Shrestha FNP-C [Primary Care Provider] - 1-3 days Discharge Diet: Cardiac Discharge Activity: Increase activity as tolerated Patient Instructions: Opioid Safety Discharge Attestations Time Spent in Discharge Care*: less than 30 min Quality Metrics Clinical Quality Measures [ No reported AMI, CVA or VTE this stay] Coding Level of Care Code Acute [facility] note Diagnoses COVID U07.1 Back pain M54.6 Back pain laterality: bilateral Back pain location: thoracic back pain Chronicity: acute Dry throat J39.2 COPD (chronic obstructive pulmonary disease) J44.9 Chronic gastroesophageal reflux disease K21.9 Panic disorder with agoraphobia F40.01 Chronic post-traumatic stress disorder F43.12
== END 2022-11-17 12:25 | disposition home or self-care (01) ==
LOC: ER 22:45 → MEDSURG 11-15 00:29
PROVIDERS: Family Medicine; Admitting Provider Family Medicine; Emergency Provider Emergency Medicine; PCP Nurse Practitioner Family; Visit Provider Internal Medicine
DX: U07.1 COVID-19 (principal); J44.1 Chronic obstructive pulmonary disease with (acute) exacerbation; G89.29 Other chronic pain; M54.6 Pain in thoracic spine; J39.2 Other diseases of pharynx; K21.9 Gastro-esophageal reflux disease without esophagitis; F40.01 Agoraphobia with panic disorder; F43.12 Post-traumatic stress disorder, chronic; Z99.81 Dependence on supplemental oxygen; R22.43 Localized swelling, mass and lump, lower limb, bilateral; G47.33 Obstructive sleep apnea (adult) (pediatric); Z79.82 Long term (current) use of aspirin; E78.5 Hyperlipidemia, unspecified; F17.210 Nicotine dependence, cigarettes, uncomplicated
CPT/HCPCS: 36415; 36600; 71045; 71275; 72040; 72072; 72100; 73060; 73090; 73110; 80048; 80051; 80053; 82330; 82805; 83880; 84145; 84484; 85025; 85378; 87040; 87486; 87581; 87633; 87641; 93005; 94640; 94664; 94760; 96365; 96372; 96375; 96376; 97110; 97161; 97165; 97530; 99285; A9281; G0378; J0248; J1650; J1956; J2270; J2930; J7613; J7626; J8540; Q9967

== ENCOUNTER 2022-11-18 19:50 | Observation (INO) | payer MEDICARE, MEDICAID, SELFPAY ==
[2022-11-13 09:28] VITALS: BP 111/72; BMI 24.9
[2022-11-18] VITALS (11 sets, daily range): BP systolic 124–151; BP diastolic 83–106; PULSE 99–114; RESP 18–55; TEMP 36.7; O2SAT 94–100; BMI 25.5
--- NOTE | 2022-11-18 20:02 | XRR_ITS ---
PROCEDURE INFORMATION: Exam: XR Chest Exam date and time: 11/18/2022 8:46 PM Age: 67 years old Clinical indication: Shortness of breath TECHNIQUE: Imaging protocol: Radiologic exam of the chest. Views: 1 view. COMPARISON: CR (CHEST, ) 11/14/2022 6:18 PM FINDINGS: Lungs: Stable mild hyperinflation of the lungs. No focal consolidation. No pulmonary edema. Pleural spaces: No pleural effusion. No pneumothorax. Heart/Mediastinum: Stable mild enlargement of the cardiac silhouette. Mediastinal contours are unremarkable. Vasculature: Stable vascular calcifications in the aorta. Bones/joints: Unremarkable for age. XR/XR chest 1V portable [id number] IMPRESSION: 1. No acute cardiopulmonary process. 2. Incidental/nonacute findings are listed in the report.
--- NOTE | 2022-11-18 20:06 | W.ED.SOB ---
Documented by User: Will Vieira MD 11/18/22 22:50 HPI - SOB/Dyspnea General: Chief Complaint: Shortness of Breath/Dyspnea Stated Complaint: SOB Time Seen by Provider: 11/18/22 19:55 Source: patient and EMS Mode of arrival: EMS Limitations: other (Shortness of breath) History of Present Illness: HPI Narrative: See nursing assessment. Patient with increased shortness of breath today with tachypnea. Patient was sent home yesterday after being hospitalized with COVID and COPD exacerbation. Patient normally wears supplemental oxygen at home and was satting in the low 90s on her usual oxygen. However, she was more tachypneic than normal and EMS was called. Patient denies any recent fever. Patient was treated with remdesivir in the hospital. She had CT angiogram of her chest done on November 16 2 days ago. That showed no pulmonary embolus. Associated symptoms: Deny abdominal pain, chest pain, fever(s), nausea, palpitations or vomiting Review of Systems Const: Denies: fever(s) or chills Eyes: Denies: change in vision ENMT: Denies: throat pain Card: Denies: chest pain or palpitations Resp: Reports: dyspnea, non-productive cough and wheezing GI: Denies: abdominal pain, nausea or vomiting : Denies: flank pain Musc: Denies: neck pain or back pain Skin/Breast: Denies: rash or pruritus Neuro: Denies: headache(s) or numbness in extremities Psych: Reports: anxiety Neal/Lymph: Denies: enlarged lymph nodes PFS ED PFSH: Medical History Acute exacerbation of chronic obstructive pulmonary disease (COPD) Anxiety and depression Back pain Bipolar 1 disorder, mixed, moderate Bipolar disorder, current episode mixed, unspecified Chronic arthritis Chronic gastroesophageal reflux disease Chronic GERD Chronic obstructive pulmonary disease, unspecified Chronic post-traumatic stress disorder COPD (chronic obstructive pulmonary disease) COVID DDD (degenerative disc disease), lumbosacral Depression, major, recurrent, moderate Dry throat Dyskinesia, tardive Drug induced Dyslipidemia Environmental and seasonal allergies Localized swelling, mass and lump, lower limb, bilateral Major depressive disorder, recurrent episode, moderate with anxious distress Obstructive sleep apnea Panic disorder with agoraphobia Psychiatric care Unspecified hearing loss, left ear Surgical History H/O esophagogastroduodenoscopy (11/08/21) History of back surgery History of bilateral knee replacement History of colonoscopy within 10 yrs History of D&C History of laparoscopy History of sinus surgery History of tonsillectomy Family History Other Cancer Chronic obstructive pulmonary disease, unspecified Diabetes Heart disease Hyperlipidemia Hypertension Thyroid disease Social History Smoking and tobacco status: current every day smoker cigarettes Packs smoked per day: 1 Years cigarettes smoked: 40 [ Other cigarette details: started at age 16] Quit status (tobacco): not considering quitting Smoking risk assessment/counseling performed?: Yes Alcohol intake: never Lives independently: Yes Household members: none Housing: Apartment Marital status: Single Number of children: 0 Number of grandchildren: 0 Highest education level completed: Some College, No Degree service: No Current occupational status: disabled Pets and animals: No History of recent travel: No Leisure activites: other Leisure activities details: watching television Sexually active: No Current gender identity: Female Sury/Anglican: Amish Special sury needs: No Agree to transfusion: Yes Financial difficulty paying for basics: Not Very Hard Female Reproductive History: Para: 0 Spontaneous abortions: No Date of menopause: 05/03/04 Physical Exam Const: COMMON NORMALS: patient oriented x3 and well nourished GENERAL APPEARANCE: cooperative OTHER: Moderate respiratory distress. Anxious HENMT: COMMON NORMALS: normocephalic and atraumatic HEAD & SCALP: normocephalic and atraumatic FACE & SINUS: normal facial exam Eye: COMMON NORMALS: EOMs intact bilaterally Neck/C-Spine: COMMON NORMALS: full ROM, no lymphadenopathy, supple and no meningeal signs GENERAL: Yes normal visual inspection Lymph: LYMPHATIC: no lymphadenopathy noted Chest: COMMONS NORMALS: normal inspection of the chest and normal palpation of entire chest wall CHEST: No Ecchymosis present and No rash Resp: OTHER: Tachypnea, diffuse mild expiratory wheezes. Cardio: COMMON NORMALS: regular rhythm and Peripheral pulses 2+ throughout JUGULAR VENOUS DISTENTION: no JVD RHYTHM: regular rhythm PERIPHERAL PULSES: Peripheral pulses 2+ throughout GI: COMMON NORMALS: Normal to inspection, nondistended, normoactive bowel sounds present and non-tender : COMMON NORMALS: Yes no CVA tenderness BLADDER/KIDNEY EXAM: Yes no CVA tenderness Back/Pelvis: COMMON NORMALS: no CVA tenderness Extremity: COMMON NORMALS: normal to inspection, full ROM and capillary refill normal Neuro: COMMON NORMALS: patient oriented x3, CN's II-XII intact bilaterally, no focal motor deficits and no sensory deficits noted MENINGEAL SIGNS: Yes no meningeal signs Psych: COMMON NORMALS: mental status grossly normal and Normal thought process present THOUGHT PROCESS: Normal thought process present OTHER: Moderate anxiety due to shortness of breath. Skin: COMMON NORMALS: no rashes or lesions noted and no wounds GENERAL SKIN EXAM: no rashes or lesions noted Course Vital Signs: Vital signs: Vital Signs Temperature 98.0 F 11/18/22 19:55 Pulse Rate 102 H 11/18/22 22:30 Respiratory Rate 26 H 11/18/22 22:30 Blood Pressure 148/94 11/18/22 22:30 Pulse Oximetry 99 11/18/22 22:30 Oxygen Delivery Me thod 11/18/22 22:30 Fraction of Inspir ed Oxygen 30 11/18/22 22:30 MDM - SOB/Dyspnea Medical Decision Making Shortness of breath. Recent COVID diagnosis. COPD exacerbation Respiratory therapy attempted to take patient off BiPAP but patient required being placed back on BiPAP. Patient tolerating BiPAP well. However, she has slight anxiety so we will give small amount of Ativan. We will proceed with getting CT angiogram of the chest to rule out pulmonary embolus. She had negative CT chest angiogram of the chest a few days ago. White blood cell count is 20,000. She states that she has been on steroids recently. 2300: care transitioned to Dr. Mcdonald at shift change. Awaiting CTA chest. Lab Data 11/18/22 20:17 11/18/22 20:17 Labs/Radiology: Radiology Impressions Chest X-Ray 11/18/22 20:02 IMPRESSION: 1. No acute cardiopulmonary process. 2. Incidental/nonacute findings are listed in the report. Chest CTA 11/18/22 21:54 IMPRESSION: 1. No pulmonary embolus. 2. Right lower lobe bronchial wall thickening with progressive mucoid impaction suggesting bronchitis. No evidence of pneumonia. 3. Stable emphysema. Laboratory Results WBC 20.3 10^3/uL (4.0-10.0) H 11/18/22 20:17 RBC 4.52 10^6/uL (4.1-5.3) 11/18/22 20:17 Hgb 13.4 g/dL (11.5-15.3) 11/18/22 20:17 Hct 43.0 % (37.0-47.0) 11/18/22 20:17 MCV 95.1 fl (81-99) 11/18/22 20:17 MCH 29.6 pg (28.0-34.0) 11/18/22 20: MCHC 31.2 g/dL (30.0-36.0) 11/18/22 20:17 RDW 12.7 % (12.1-15.1) 11/18/22 20:17 Plt Count 444 10^3/cmm (130-400) H 11/18/22 20:17 MPV 9.3 fL (7.4-10.4) 11/18/22 20:17 Neut % (Auto) 70.8 % 11/18/22 20:17 Lymph % (Auto) 22.6 % 11/18/22 20:17 [place] % (Auto) 5.6 % 11/18/22 20:17 Eos % (Auto) 0.2 % 11/18/22 20:17 Baso % (Auto) 0.2 % 11/18/22 20:17 Neut # (Auto) 14.40 10^3/uL (1.8-7.7) H 11/18/22 20:17 Lymph # (Auto) 4.6 10^3/uL (0.8-4.8) 11/18/22 20:17 [place] # (Auto) 1.1 10^3/uL (0.2-0.9) H 11/18/22 20:17 Eos # (Auto) 0.0 10^3/uL (0.0-0.8) 11/18/22 20:17 Baso # (Auto) 0.0 10^3/uL (0.0-0.1) 11/18/22 20:17 Nucleated RBC % (auto) 0 % 11/18/22 20:17 Nucleated RBCs # 0.0 /100WBC 11/18/22 20:17 D-Dimer 1.82 ug/mIFEU (0-0.59) H 11/18/22 20:17 Specimen Type Arterial 11/18/22 20:05 Sample Site Radial, right 11/18/22 20:05 ABG pH 7.44 (7.35-7.45) 11/18/22 20:05 ABG pCO2 44.7 mmHg (35-45) 11/18/22 20:05 ABG pO2 210.0 mmHg (80.0-100.0) H 11/18/22 20:05 ABG HCO3 30.2 mmol/L (22-26) H 11/18/22 20:05 ABG O2 Saturation > 100.0 11/18/22 20:05 ABG Base Excess 5.2 mmol/L (-2.0-2.0) H 11/18/22 20:05 Tomás Test Pos 11/18/22 20:05 A-a O2 Gradient 11.2 mmHg (5-10) H 11/18/22 20:05 Hematocrit 42.8 % (37-47) 11/18/22 20:05 Hgb O2 Saturation 97.2 % (95-100) 11/18/22 20:05 Carboxyhemoglobin 2.3 %THgb (0.4-20.1) 11/18/22 20:05 Methemoglobin 0.7 % (0.4-1.5) 11/18/22 20:05 Total Hemoglobin 14.0 g/dL (12-16) 11/18/22 20:05 Sodium 138.0 mmol/L (131-143) 11/18/22 20:05 Potassium 3.8 mmol/L (3.5-5.0) 11/18/22 20:05 Glucose 125.0 mg/dL (70-115) H 11/18/22 20:05 Ionized Calcium 1.2 mmol/L (1.1-1.4) 11/18/22 20:05 O2 Delivery Device Bipap 11/18/22 20:05 FiO2 50.0 % 11/18/22 20:05 PEEP 10.0 cmH20 11/18/22 20:05 Septic Tank Cleaner ID [email or web address] 11/18/22 20:05 Sodium 131 mmol/L (136-145) L 11/18/22 20:17 Potassium 3.7 mmol/L (3.5-5.1) 11/18/22 20:17 Chloride 91 mmol/L (98-107) L 11/18/22 20:17 Carbon Dioxide 30 mmol/L (22-29) H 11/18/22 20:17 Anion Gap 13.7 (5-19) 11/18/22 20:17 BUN 15 mg/dL (8-23) 11/18/22 20:17 Creatinine 0.6 mg/dL (0.5-0.9) 11/18/22 20:17 GFR Calculation 99.4 mL/min (90-130) 11/18/22 20:17 Glucose 93 mg/dL (65-115) 11/18/22 20:17 Calculated Osmolality 273 mOsm/kg (285-295) L 11/18/22 20:17 Lactic Acid 1.7 mmol/L (0.5-2.2) 11/18/22 20:17 Calcium 9.1 mg/dL (8.5-10.5) 11/18/22 20:17 NT-Pro-B Natriuret Pep 45 pg/mL (0-125) 11/18/22 20:17 Imaging Data CXR: My impression: No effusions or infiltrates. Radiologist's impression: PROCEDURE INFORMATION: Exam: XR Chest Exam date and time: 11/18/2022 8:46 PM Age: 67 years old Clinical indication: Shortness of breath TECHNIQUE: Imaging protocol: Radiologic exam of the chest. Views: 1 view. COMPARISON: CR (CHEST, ) 11/14/2022 6:18 PM FINDINGS: Lungs: Stable mild hyperinflation of the lungs. No focal consolidation. No pulmonary edema. Pleural spaces: No pleural effusion. No pneumothorax. Heart/Mediastinum: Stable mild enlargement of the cardiac silhouette. Mediastinal contours are unremarkable. Vasculature: Stable vascular calcifications in the aorta. Bones/joints: Unremarkable for age. XR/XR chest 1V portable [id number] IMPRESSION: 1. No acute cardiopulmonary process. 2. Incidental/nonacute findings are listed in the report. ? Dictated By: Razia Vega MD Signed By: Razia Vega MD Signed Date/Time: 11/18/222102 EKG Data EKG 1: I personally reviewed and interpreted this EKG as follows: EKG Interpretation Date: 11/18/22 EKG interpretation time: 20:20 Interpretation: Sinus tachycardia with heart rate 101. Normal axis. Normal DE interval, normal QT interval. Normal ST segment. Mild left atrial enlargement. Normal T waves. Other Data Second ABG after BiPAP decreased to 18/8 with 30% pH 7.43 PCO2 44 PO2 210 with ox saturation 97%. Critical Care Time Critical Care Time: Critical Care Time: Yes Total Critical Care Time: 65 Attestation: See orders. BiPAP. Discharge Plan Discharge Patient Disposition: Admitted As Inpatient Clinical Impression: COVID, Acute respiratory failure with hypoxemia Chronic obstructive pulmonary disease, unspecified Qualifiers: COPD type: COPD with acute exacerbation Qualified Code(s): J44.1 - Chronic obstructive pulmonary disease with (acute) exacerbation Condition: Stable Coding Level of Care Code ED Laboratory Technology Teacher for Chg Fwd Exam Comprehensive Documented by User: Rajinder Mcdonald MD 11/18/22 23:40 HPI - SOB/Dyspnea General: Chief Complaint: Shortness of Breath/Dyspnea Stated Complaint: SOB Time Seen by Provider: 11/18/22 19:55 PFSH ED PFSH: Medical History Acute exacerbation of chronic obstructive pulmonary disease (COPD) Anxiety and depression Back pain Bipolar 1 disorder, mixed, moderate Bipolar disorder, current episode mixed, unspecified Chronic arthritis Chronic gastroesophageal reflux disease Chronic GERD Chronic obstructive pulmonary disease, unspecified Chronic post-traumatic stress disorder COPD (chronic obstructive pulmonary disease) COVID DDD (degenerative disc disease), lumbosacral Depression, major, recurrent, moderate Dry throat Dyskinesia, tardive Drug induced Dyslipidemia Environmental and seasonal allergies Localized swelling, mass and lump, lower limb, bilateral Major depressive disorder, recurrent episode, moderate with anxious distress Obstructive sleep apnea Panic disorder with agoraphobia Psychiatric care Unspecified hearing loss, left ear Surgical History H/O esophagogastroduodenoscopy (11/08/21) History of back surgery History of bilateral knee replacement History of colonoscopy within 10 yrs History of D&C History of laparoscopy History of sinus surgery History of tonsillectomy Family History Other Cancer Chronic obstructive pulmonary disease, unspecified Diabetes Heart disease Hyperlipidemia Hypertension Thyroid disease Social History Smoking and tobacco status: current every day smoker cigarettes Packs smoked per day: 1 Years cigarettes smoked: 40 [ Other cigarette details: started at age 16] Quit status (tobacco): not considering quitting Smoking risk assessment/counseling performed?: Yes Alcohol intake: never Lives independently: Yes Household members: none Housing: Apartment Marital status: Single Number of children: 0 Number of grandchildren: 0 Highest education level completed: Some College, No Degree service: No Current occupational status: disabled Pets and animals: No History of recent travel: No Leisure activites: other Leisure activities details: watching television Sexually active: No Current gender identity: Female Sury/Anglican: Amish Special sury needs: No Agree to transfusion: Yes Financial difficulty paying for basics: Not Very Hard Course Vital Signs: Vital signs: Vital Signs Temperature 98.0 F 11/18/22 19:55 Pulse Rate 102 H 11/18/22 22:30 Respiratory Rate 26 H 11/18/22 22:30 Blood Pressure 148/94 11/18/22 22:30 Pulse Oximetry 99 11/18/22 22:30 Oxygen Delivery Me thod 11/18/22 22:30 Fraction of Inspir ed Oxygen 30 11/18/22 22:30 MDM - SOB/Dyspnea Medical Decision Making Shortness of breath. Recent COVID diagnosis. COPD exacerbation Respiratory therapy attempted to take patient off BiPAP but patient required being placed back on BiPAP. Patient tolerating BiPAP well. However, she has slight anxiety so we will give small amount of Ativan. We will proceed with getting CT angiogram of the chest to rule out pulmonary embolus. She had negative CT chest angiogram of the chest a few days ago. White blood cell count is 20,000. She states that she has been on steroids recently. 2300: care transitioned to Dr. Mcdonald at shift change. Awaiting CTA chest. Patient CT shows no signs of PE I spoke to hospitalist and will admit at this time. Lab Data 11/18/22 20:17 11/18/22 20:17 Labs/Radiology: Radiology Impressions Chest X-Ray 11/18/22 20:02 IMPRESSION: 1. No acute cardiopulmonary process. 2. Incidental/nonacute findings are listed in the report. Chest CTA 11/18/22 21:54 IMPRESSION: 1. No pulmonary embolus. 2. Right lower lobe bronchial wall thickening with progressive mucoid impaction suggesting bronchitis. No evidence of pneumonia. 3. Stable emphysema. Laboratory Results WBC 20.3 10^3/uL (4.0-10.0) H 11/18/22 20:17 RBC 4.52 10^6/uL (4.1-5.3) 11/18/22 20:17 Hgb 13.4 g/dL (11.5-15.3) 11/18/22 20:17 Hct 43.0 % (37.0-47.0) 11/18/22 20:17 MCV 95.1 fl (81-99) 11/18/22 20:17 MCH 29.6 pg (28.0-34.0) 11/18/22 20:17 MCHC 31.2 g/dL (30.0-36.0) 11/18/22 20:17 RDW 12.7 % (12.1-15.1) 11/18/22 20:17 Plt Count 444 10^3/cmm (130-400) H 11/18/22 20:17 MPV 9.3 fL (7.4-10.4) 11/18/22 20:17 Neut % (Auto) 70.8 % 11/18/22 20:17 Lymph % (Auto) 22.6 % 11/18/22 20:17 [place] % (Auto) 5.6 % 11/18/22 20:17 Eos % (Auto) 0.2 % 11/18/22 20:17 Baso % (Auto) 0.2 % 11/18/22 20:17 Neut # (Auto) 14.40 10^3/uL (1.8-7.7) H 11/18/22 20:17 Lymph # (Auto) 4.6 10^3/uL (0.8-4.8) 11/18/22 20:17 [place] # (Auto) 1.1 10^3/uL (0.2-0.9) H 11/18/22 20:17 Eos # (Auto) 0.0 10^3/uL (0.0-0.8) 11/18/22 20: Baso # (Auto) 0.0 10^3/uL (0.0-0.1) 11/18/22 20:17 Nucleated RBC % (auto) 0 % 11/18/22 20: Nucleated RBCs # 0.0 /100WBC 11/18/22 20:17 D-Dimer 1.82 ug/mIFEU (0-0.59) H 11/18/22 20:17 Specimen Type Arterial 11/18/22 20:05 Sample Site Radial, right 11/18/22 20:05 ABG pH 7.44 (7.35-7.45) 11/18/22 20:05 ABG pCO2 44.7 mmHg (35-45) 11/18/22 20:05 ABG pO2 210.0 mmHg (80.0-100.0) H 11/18/22 20:05 ABG HCO3 30.2 mmol/L (22-26) H 11/18/22 20:05 ABG O2 Saturation > 100.0 11/18/22 20:05 ABG Base Excess 5.2 mmol/L (-2.0-2.0) H 11/18/22 20:05 Tomás Test Pos 11/18/22 20:05 A-a O2 Gradient 11.2 mmHg (5-10) H 11/18/22 20:05 Hematocrit 42.8 % (37-47) 11/18/22 20:05 Hgb O2 Saturation 97.2 % (95-100) 11/18/22 20:05 Carboxyhemoglobin 2.3 %THgb (0.4-20.1) 11/18/22 20:05 Methemoglobin 0.7 % (0.4-1.5) 11/18/22 20:05 Total Hemoglobin 14.0 g/dL (12-16) 11/18/22 20:05 Sodium 138.0 mmol/L (131-143) 11/18/22 20:05 Potassium 3.8 mmol/L (3.5-5.0) 11/18/22 20:05 Glucose 125.0 mg/dL (70-115) H 11/18/22 20:05 Ionized Calcium 1.2 mmol/L (1.1-1.4) 11/18/22 20:05 O2 Delivery Device Bipap 11/18/22 20:05 FiO2 50.0 % 11/18/22 20:05 PEEP 10.0 cmH20 11/18/22 20:05 Septic Tank Cleaner ID [email or web address] 11/18/22 20:05 Sodium 131 mmol/L (136-145) L 11/18/22 20:17 Potassium 3.7 mmol/L (3.5-5.1) 11/18/22 20:17 Chloride 91 mmol/L (98-107) L 11/18/22 20:17 Carbon Dioxide 30 mmol/L (22-29) H 11/18/22 20:17 Anion Gap 13.7 (5-19) 11/18/22 20:17 BUN 15 mg/dL (8-23) 11/18/22 20:17 Creatinine 0.6 mg/dL (0.5-0.9) 11/18/22 20:17 GFR Calculation 99.4 mL/min (90-130) 11/18/22 20:17 Glucose 93 mg/dL (65-115) 11/18/22 20:17 Calculated Osmolality 273 mOsm/kg (285-295) L 11/18/22 20:17 Lactic Acid 1.7 mmol/L (0.5-2.2) 11/18/22 20:17 Calcium 9.1 mg/dL (8.5-10.5) 11/18/22 20:17 NT-Pro-B Natriuret Pep 45 pg/mL (0-125) 11/18/22 20:17 Discharge Plan Discharge Patient Disposition: Admitted As Inpatient Clinical Impression: COVID, Acute respiratory failure with hypoxemia Chronic obstructive pulmonary disease, unspecified Qualifiers: COPD type: COPD with acute exacerbation Qualified Code(s): J44.1 - Chronic obstructive pulmonary disease with (acute) exacerbation Condition: Stable Coding Level of Care Code ED Laboratory Technology Teacher for Chg Fwd Exam Comprehensive
[2022-11-18 20:17] LABS: Blood Gas Allen Test Pos; Blood Gas Sample Site Radial, right; Blood Gas Sample Type Arterial; Ionized Calcium Level - ABG 1.2 mmol/L (1.1-1.4); Oxygen Device BIPAP
[2022-11-18 20:24] LABS: Basophils % 0.2 %; Eosinophils % 0.2 %; Hemoglobin 13.4 g/dL (11.5-15.3); Lymphocytes # 4.6 10^3/uL (0.8-4.8); Lymphocytes % 22.6 %; Mean Corpuscular HGB Conc 31.2 g/dL (30.0-36.0); Mean Corpuscular Hemoglobin 29.6 pg (28.0-34.0); Mean Corpuscular Volume 95.1 fl (81-99); Mean Platelet Volume 9.3 fL (7.4-10.4); Monocytes # 1.1 10^3/uL (0.2-0.9); Monocytes % 5.6 %; Neutrophils % 70.8 %; Nucleated Red Blood Cells % 0 %; Platelet Count 444 10^3/cmm (130-400); Red Blood Count 4.52 10^6/uL (4.1-5.3); Red Cell Distribution Width 12.7 % (12.1-15.1); White Blood Count 20.3 10^3/uL (4.0-10.0)
[2022-11-18 20:32] LABS: ABG PCO2 44.7 mmHg (35-45); ABG PH Result 7.44 (7.35-7.45); Alveolar-Arterial Oxygen Gradi 11.2 mmHg (5-10); Arterial Blood Gas Hematocrit 42.8 % (37-47); Base Excess ABG 5.2 mmol/L (-2.0-2.0); Carboxyhemoglobin 2.3 %THgb (0.4-20.1); HCO3 ABG 30.2 mmol/L (22-26); HGB O2 Sat 97.2 % (95-100); Methemoglobin 0.7 % (0.4-1.5); Oxygen Saturation ABG > 100.0; Potassium Level - ABG 3.8 mmol/L (3.5-5.0)
[2022-11-18 20:37] LABS: D Dimer 1.82 ug/mIFEU (0-0.59)
[2022-11-18 20:40] LABS: Lactic Sepsis W/Reflex 1.7 mmol/L (0.5-2.2)
[2022-11-18] MEDS: ipratropium-albuterol 3 mL Neb INHALATION (20:41)
[2022-11-18 20:53] LABS: Anion Gap 13.7 (5-19); Blood Urea Nitrogen 15 mg/dL (8-23); Calcium 9.1 mg/dL (8.5-10.5); Carbon Dioxide 30 mmol/L (22-29); Chloride 91 mmol/L (98-107); Glomerular Filtration Rate 99.4 mL/min (90-130); Glucose 93 mg/dL (65-115); NT Pro B Type Natriuretic Pept 45 pg/mL (0-125); Osmolality Calculated 273 mOsm/kg (285-295); Potassium 3.7 mmol/L (3.5-5.1); Sodium 131 mmol/L (136-145)
--- NOTE | 2022-11-18 21:54 | CTR_ITS ---
PROCEDURE INFORMATION: Exam: CTA Chest With Contrast Exam date and time: 11/18/2022 11:03 PM Age: 67 years old Clinical indication: Shortness of breath; Additional info: Shortness of breath; Recent covid, had neg cta a few days ago. Increased dyspnea; Ddimer 1.83; TECHNIQUE: Imaging protocol: Computed tomographic angiography of the chest with contrast. 3D rendering (Not supervised by radiologist): MIP and/or 3D reconstructed images were created by the technologist. Radiation optimization: All CT scans at this facility use at least one of these dose optimization techniques: automated exposure control; mA and/or kV adjustment per patient size (includes targeted exams where dose is matched to clinical indication); or iterative reconstruction. Contrast material: OMNI 350; Contrast volume: 100 ml; Contrast route: INTRAVENOUS (IV); COMPARISON: CT angio chest PE protcl [id number] 11/16/2022 8:49 AM RADIATION DOSE METRICS: Total DLP (mGy-cm): 359.06 FINDINGS: Pulmonary arteries: Normal. No pulmonary emboli. Aorta: Unremarkable. No aortic aneurysm. No aortic dissection. Lungs: Stable emphysema. Right lower lobe bronchial mucoid impaction with wall thickening is progressive. Pleural spaces: Unremarkable. No pneumothorax. No pleural effusion. Heart: Unremarkable. No cardiomegaly. No pericardial effusion. Coronary arteries: Mild coronary artery atherosclerosis, unchanged. Lymph nodes: Unremarkable. No enlarged lymph nodes. Diaphragm: Bilateral Bochdalek hernias unchanged. Adrenal glands: Mild thickening left adrenal, likely adenomatous hyperplasia, unchanged. Bones/joints: Stable T5 compression deformity. Soft tissues: Unremarkable. CT/CT angio chest PE protcl [id number] IMPRESSION: 1. No pulmonary embolus. 2. Right lower lobe bronchial wall thickening with progressive mucoid impaction suggesting bronchitis. No evidence of pneumonia. 3. Stable emphysema.
[2022-11-18] MEDS: iohexol 350 mg/mL 500 mL Btl (per mL) IV (22:21)
[2022-11-18] MEDS: LORazepam 2 mg/mL INJ 1 mL 0.5 MG IVP (22:35)
[2022-11-18] MEDS: ondansetron 2 mg/ML SDV 2 mL 4 MG IVP (22:39)
--- NOTE | 2022-11-18 22:45 | PC.NURSE ---
Escorted pt to CT with RT. Pt remained on BIPAP and on cardiac moniter. Tolerated procedure well.
--- NOTE | 2022-11-18 23:55 | PM.HP ---
Providers/Chief Complaint Primary Care Provider: ALLISON Livingston Chief Complaint: SOB History of Present Illness Tika Garcia is a 67 year old female with a past medical history of COPD, MAE on CPAP, anxiety depression, bipolar disorder, history of chronic back pain, who presents [facility] for shortness of breath. Patient was recently discharged from [facility] for COPD exacerbation, COVID-19, he tells me that she got better when she got home, there was the night that she got home she was sleeping with her CPAP without oxygen, she felt short of breath the day after that she got home, but got a bit better but throughout today, she felt increasingly short of breath, short of breath at rest with exertion, no fevers, chills, has a nonproductive cough, no lightheadedness, no dizziness, no chest pain, no fevers Review of Systems Const: Reports: fatigue; Denies: fever(s) Eyes: Denies: change in vision Card: Denies: chest pain Resp: Reports: dyspnea and non-productive cough GI: Denies: abdominal pain : Denies: flank pain, difficulty voiding or dysuria Musc: Denies: back pain Neuro: Denies: headache(s) Medications/Allergies Home Medications Medication Instructions Recorded Confirmed Last Taken Type aspirin 81 mg tablet,delayed 81 mg PO DAILY 01/08/20 11/14/22 11/14/22 History release (Adult Low Dose Aspirin) compressor, for nebulizer #1 ea 06/28/21 11/14/22 Unknown Rx nebulizer accessories #1 ea 06/28/21 11/14/22 Unknown Rx guaifenesin 1,200 mg tablet, 1,200 mg PO BID PRN congestion 30 02/13/22 11/14/22 11/14/22 Rx extended release 12 hr (Mucinex) days #60 tabs albuterol sulfate 90 mcg/actuation 2 puff inhalation QID PRN 05/14/22 11/14/22 Unknown Rx aerosol inhaler (ProAir HFA) shortness of breath or wheezing 30 days #6.7 grams albuterol sulfate 2.5 mg/3 mL 2.5 mg (3 mL) inhalation QID PRN 07/04/22 11/14/22 Unknown Rx (0.083 %) solution for nebulization shortness of breath or wheezing #75 mL fluticasone propionate 50 2 spray intranasal QDAY PRN 07/27/22 11/14/22 Unknown History mcg/actuation nasal allergy symptoms spray,suspension coenzyme Q10 30 mg capsule (CoQ-10) 30 mg PO DAILY 07/31/22 11/14/22 11/14/22 History pantoprazole 40 mg tablet,delayed 40 mg PO DAILY #30 tabs 08/10/22 11/14/22 11/14/22 Rx release (Protonix) hydroxyzine HCl 25 mg tablet 25 mg PO BID PRN anxiety #60 tabs 08/13/22 11/14/22 Unknown Rx Wheelchair #1 ea 08/16/22 11/14/22 Unknown Rx melatonin 5 mg tablet 5 mg PO BEDTIME PRN sleep #30 tabs 09/07/22 11/14/22 11/13/22 Rx Shaklee Multi Vitamin 1 tab PO DAILY 10/09/22 11/14/22 11/14/22 History aripiprazole 5 mg tablet (Abilify) 5 mg PO QPM 10/09/22 11/14/22 11/13/22 History diphenhydramine HCl 25 mg capsule 50 mg PO DAILY PRN Allergy Symptoms 10/09/22 11/14/22 Unknown History (Benadryl) trazodone 100 mg tablet 100 - 200 mg PO BEDTIME PRN sleep 10/09/22 11/14/22 Unknown History turmeric 400 mg capsule 400 mg PO DAILY 10/09/22 11/14/22 11/14/22 History valbenazine 40 mg capsule 40 mg PO DAILY 10/09/22 11/14/22 11/14/22 History (Ingrezza) oxygen concentrator with portable #1 ea 10/11/22 11/14/22 Unknown Rx gabapentin 300 mg capsule 300 mg PO BID #60 caps 10/31/22 11/14/22 11/14/22 Rx (Neurontin) budesonide 0.5 mg/2 mL suspension 0.5 mg (2 mL) inhalation BID #120 11/08/22 11/14/22 11/14/22 Rx for nebulization mL formoterol fumarate 20 mcg/2 mL 2 ml inhalation BID #120 mL 11/08/22 11/14/22 11/14/22 Rx solution for nebulization revefenacin 175 mcg/3 mL solution 175 mcg (3 mL) inhalation DAILY 11/08/22 11/14/22 11/14/22 Rx for nebulization #90 mL potassium chloride 10 mEq 10 meq PO DAILY #30 caps 11/09/22 11/14/22 11/14/22 Rx capsule,extended release prednisone 10 mg tablet See Rx Instructions PO .COMPLEX 11/10/22 11/14/22 11/14/22 Rx #36 tabs furosemide 20 mg tablet (Lasix) 40 mg PO DAILY 11/14/22 11/14/22 11/14/22 History lovastatin 20 mg tablet 20 mg PO DAILY 11/14/22 11/14/22 11/13/22 History montelukast 10 mg tablet 10 mg PO DAILY 11/14/22 11/14/22 11/14/22 History (Singulair) Allergies Allergy/AdvReac Type Severity Reaction Status Date / Time cyclobenzaprine Allergy Severe ALGY-Difficulty Verified 11/14/22 13:49 Breathing peanut Allergy Severe Severe Verified 11/14/22 13:49 congestion, Itching & throat swelling Penicillins Allergy Severe ALGY-Anaphy Verified 11/14/22 13:49 laxis ibuprofen Allergy Intermediate ADR-Anxiety Verified 11/14/22 13:49 shellfish derived Allergy Intermediate Scalp Verified 11/14/22 13:49 itching & eyes tearing up. Sulfa (Sulfonamide Allergy Intermediate ALGY-Rash Verified 11/14/22 13:49 Antibiotics) lurasidone [From Latuda] AdvReac Intermediate swollen Verified 11/14/22 13:49 tongue PFSH Acute PFSH: Medical History Acute exacerbation of chronic obstructive pulmonary disease (COPD) Anxiety and depression Back pain Bipolar 1 disorder, mixed, moderate Bipolar disorder, current episode mixed, unspecified Chronic arthritis Chronic gastroesophageal reflux disease Chronic GERD Chronic obstructive pulmonary disease, unspecified Chronic post-traumatic stress disorder COPD (chronic obstructive pulmonary disease) COVID DDD (degenerative disc disease), lumbosacral Depression, major, recurrent, moderate Dry throat Dyskinesia, tardive Drug induced Dyslipidemia Environmental and seasonal allergies Localized swelling, mass and lump, lower limb, bilateral Major depressive disorder, recurrent episode, moderate with anxious distress Obstructive sleep apnea Panic disorder with agoraphobia Psychiatric care Unspecified hearing loss, left ear Surgical History H/O esophagogastroduodenoscopy (11/08/21) History of back surgery History of bilateral knee replacement History of colonoscopy within 10 yrs History of D&C History of laparoscopy History of sinus surgery History of tonsillectomy Family History Other Cancer Chronic obstructive pulmonary disease, unspecified Diabetes Heart disease Hyperlipidemia Hypertension Thyroid disease Social History Smoking and tobacco status: current every day smoker cigarettes Packs smoked per day: 1 Years cigarettes smoked: 40 [ Other cigarette details: started at age 16] Quit status (tobacco): not considering quitting Smoking risk assessment/counseling performed?: Yes Alcohol intake: never Lives independently: Yes Household members: none Housing: Apartment Marital status: Single Number of children: 0 Number of grandchildren: 0 Highest education level completed: Some College, No Degree service: No Current occupational status: disabled Pets and animals: No History of recent travel: No Leisure activites: other Leisure activities details: watching television Sexually active: No Current gender identity: Female Sury/Oriental Orthodox: Yazidism Special sury needs: No Agree to transfusion: Yes Financial difficulty paying for basics: Not Very Hard Female Reproductive History: Para: 0 Spontaneous abortions: No Date of menopause: 05/03/04 Vitals/I&O/Wt Last Vital Signs Temp 98.0 F 11/18/22 19:55 Pulse 101 H 11/18/22 23:15 Resp 18 11/18/22 23:15 BP 126/83 11/18/22 23:15 Pulse Ox 99 11/18/22 23:15 O2 Del Method 11/18/22 22:30 FiO2 30 11/18/22 22:30 Weight last 48 hrs Weight 76.204 kg Physical Exam Const: COMMON NORMALS: no acute distress and patient oriented x3 Eye: COMMON NORMALS: Equal, round and reactive pupils present and EOMs intact bilaterally Neck/C-Spine: COMMON NORMALS: full ROM and no lymphadenopathy Resp: COMMON NORMALS: normal respiratory effort, No retractions and No use of accessory muscles AUSCULTATION: wheezes Cardio: COMMON NORMALS: regular rate, regular rhythm, S1 normal heart sound present and S2 normal heart sound present RATE: regular rate RHYTHM: regular rhythm HEART SOUNDS: S1 normal heart sound present and S2 normal heart sound present GI: COMMON NORMALS: Normal to inspection, nondistended, normoactive bowel sounds present, Soft to palpation and non-tender Extremity: COMMON NORMALS: no pedal edema Neuro: COMMON NORMALS: patient oriented x3, CN's II-XII intact bilaterally and moves all extremities Psych: COMMON NORMALS: mental status grossly normal Data 11/18/22 20:17 11/18/22 20:17 Micro: Microbiology 11/18/22 20:22 Blood Culture - Preliminary Blood SPECIMEN COLLECTED 11/18/22 20:18 Blood Culture - Preliminary Blood SPECIMEN COLLECTED A&P Assessment and plan (1) Acute respiratory failure with hypoxemia: (2) COVID: (3) COPD exacerbation: (4) MAE (obstructive sleep apnea): Plan Acute hypoxic respiratory failure -Likely secondary to COPD exacerbation -Has COVID-19, CT angiogram no significant groundglass opacities, has been treated with remdesivir for at least 3 days while he was here in the hospital -CT angiogram no pulm embolism, no focal pneumonia Plan -Continue BiPAP therapy -DuoNeb, budesonide -Solu-Medrol 40 every 8 hours -Monitor respiratory status closely -Follow sputum cultures, blood cultures -We will hold off on further remdesivir -Serial EKGs, troponins, telemetry, -Lovenox for DVT prophylaxis -Full code Attestations Medical Necessity Statement*: Patient requires hospitalization, inpatient, greater than 2 midnights for acute hypoxic respiratory failure secondary to COPD exacerbation, with history of COVID-19 on Coding Level of Care Code Acute Code for [facility] Fwd Diagnoses Acute respiratory failure with hypoxemia J96.01 COVID U07.1 COPD exacerbation J44.1 MAE (obstructive sleep apnea) G47.33
[2022-11-19] VITALS (12 sets, daily range): BP systolic 126–144; BP diastolic 81–90; PULSE 95–108; RESP 14–26; TEMP 36.3–36.6; O2SAT 93–99
[2022-11-19 00:26] LABS: C Reactive Protein 9.2 mg/L (0.0-4.9)
--- NOTE | 2022-11-19 00:29 | ECG_ITS ---
[facility] Test Date: 2022-11-19 Pat Name: Tika Garcia Department: Room: Gender: Female Cfo Controller: : 1955 Requested By: Isaac Musa Order Number: [id number] Lukasz MD: Elio Waller M.D. Measurements Intervals [place] Rate: 102 P: 72 MS: 161 QRS: 86 QRSD: 82 T: 61 QT: 331 QTc: 431 Interpretive Statements SINUS TACHYCARDIA ABNORMAL RHYTHM ECG Compared to ECG 11/14/2022 19:42:53 Sinus rhythm no longer present Myocardial infarct finding no longer present Electronically Signed On 11-19-2022 7:12:11 CLINICAL SAFETY SPECIALIST by Elio Waller M.D. [id number]
[2022-11-19 00:33] LABS: Procalcitonin 0.03 ng/mL (0-0.5)
[2022-11-19 00:52] LABS: Troponin(5th) Baseline 19 ng/L (0-10)
--- NOTE | 2022-11-19 01:20 | PC.NURSE ---
RT notified of pt being transported to floor. Will trial pt on nonrebreather for transport
--- NOTE | 2022-11-19 03:24 | ECG_ITS ---
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 Measurements Intervals [place] Rate: 101 P: 68 CA: 155 QRS: 85 QRSD: 84 T: 61 QT: 322 QTc: 419 Interpretive Statements SINUS TACHYCARDIA ABNORMAL RHYTHM ECG Compared to ECG 11/14/2022 19:42:53 Sinus rhythm no longer present Myocardial infarct finding no longer present Electronically Signed On 11-19-2022 7:15:08 SAW OPERATOR by Elio Waller M.D. [id number]
[2022-11-19] MEDS: doxycycline 100 MG in sodium chloride 0.9% (plus) 100 ML IV (03:56)
[2022-11-19] MEDS: enoxaparin 40 mg/0.4 mL Syringe SUBCUT (03:56)
[2022-11-19 05:24] LABS: Basophils % 0.1 %; Hematocrit 40.3 % (37.0-47.0); Hemoglobin 12.6 g/dL (11.5-15.3); Lymphocytes # 1.3 10^3/uL (0.8-4.8); Lymphocytes % 9.2 %; Mean Corpuscular HGB Conc 31.3 g/dL (30.0-36.0); Mean Corpuscular Hemoglobin 29.6 pg (28.0-34.0); Mean Corpuscular Volume 94.6 fl (81-99); Mean Platelet Volume 9.6 fL (7.4-10.4); Monocytes # 0.2 10^3/uL (0.2-0.9); Monocytes % 1.7 %; Neutrophils # 12.13 10^3/uL (1.8-7.7); Neutrophils % 88.4 %; Nucleated Red Blood Cells % 0 %; Platelet Count 386 10^3/cmm (130-400); Red Blood Count 4.26 10^6/uL (4.1-5.3); White Blood Count 13.7 10^3/uL (4.0-10.0)
[2022-11-19 05:36] LABS: Troponin 5 2HR 7.76 ng/L (0-10)
[2022-11-19 05:37] LABS: Anion Gap 11.2 (5-19); Blood Urea Nitrogen 15 mg/dL (8-23); Calcium 9.7 mg/dL (8.5-10.5); Carbon Dioxide 31 mmol/L (22-29); Chloride 94 mmol/L (98-107); Glomerular Filtration Rate 99.4 mL/min (90-130); Glucose 132 mg/dL (65-115); Osmolality Calculated 277 mOsm/kg (285-295); Potassium 4.2 mmol/L (3.5-5.1); Sodium 132 mmol/L (136-145)
--- NOTE | 2022-11-19 05:46 | ECG_ITS ---
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 Measurements Intervals [place] Rate: 95 P: 84 ND: 154 QRS: 69 QRSD: 90 T: 67 QT: 339 QTc: 427 Interpretive Statements SINUS RHYTHM Compared to ECG 11/19/2022 00:29:52 Sinus tachycardia no longer present Electronically Signed On 11-19-2022 7:18:41 RADIOGRAPHIC TECHNOLOGIST by Elio Waller M.D. [id number]
[2022-11-19 05:49] LABS: NT Pro B Type Natriuretic Pept 38 pg/mL (0-125)
[2022-11-19 06:00] LABS: Troponin 5 2HR Delta -11.24 ABS# (0-10)
[2022-11-19 07:08] LABS: Troponin 5 6HR Delta -10.4 ng/L (0-12)
[2022-11-19] MEDS: ipratropium-albuterol 3 mL Neb INHALATION ×2 (08:01→11:48)
[2022-11-19] MEDS: budesonide 0.5 mg/2 mL Neb INHALATION (08:01)
[2022-11-19] MEDS: montelukast sodium 10 mg Tablet PO (08:28)
[2022-11-19] MEDS: pantoprazole DR 40 mg Tablet PO (08:29)
[2022-11-19] MEDS: atorvastatin 40 mg Tablet 20 MG PO (08:29)
[2022-11-19] MEDS: FUROsemide 20 mg Tablet 40 MG PO (08:29)
[2022-11-19] MEDS: potassium chloride ER 10 mEq Tablet PO (08:29)
[2022-11-19] MEDS: gabapentin 300 mg Capsule PO (08:29)
[2022-11-19] MEDS: aspirin 81 mg EC Tablet PO (08:29)
[2022-11-19] MEDS: acetaminophen 325 mg Tablet 650 MG PO (08:34)
--- NOTE | 2022-11-19 12:52 | P.PN_ITS ---
Subjective Subjective: Patient states she is back to her baseline and she would like to go home. She states this is the best she is going to get. She states all this happened because for 1 night she did not hookup her oxygen to her CPAP. She feels better. Does have some anxiety at baseline. She would like to ensure however her ride can be set up because [place]. She does not have a ride to go home and would like transportation. Vitals/I&O/Wt Last Vital Signs Temp 97.4 F L 11/19/22 12:00 Pulse 98 11/19/22 12:00 Resp 15 11/19/22 12:00 BP 138/89 11/19/22 12:00 Pulse Ox 96 11/19/22 12:00 O2 Del Method 11/19/22 12:00 O2 Flow Rate 3 11/19/22 12:00 FiO2 30 11/19/22 06:00 11/18/22 11/19/22 11/19/22 22:59 06:59 14:59 Intake Total 120 / 120 340 / 340 Output Total 450 / 450 500 / 500 Balance -330 / -330 -160 / -160 Weight last 48 hrs Weight 76.204 kg Physical Exam Narrative: General: Alert oriented x3, patient seen sitting up in bed appearing anxious at this time. Breathing normally and comfortably on 3 L nasal cannula. No acute respiratory distress, no conversational dyspnea at this time. HEENT: Normocephalic, atraumatic, EOMI, Cardio: Regular rate rhythm, normal S1-S2 Respiratory: Slightly diminished bilaterally at bases with mild rhonchi present. Otherwise clear to auscultation. GI: Abdomen soft, nontender, nondistended, bowel sounds + Extremities: No edema bilateral lower extremities. Data 11/19/22 04:03 11/19/22 04:03 Micro: Microbiology 11/18/22 20:22 Blood Culture - Preliminary Blood SPECIMEN COLLECTED 11/18/22 20:18 Blood Culture - Preliminary Blood SPECIMEN COLLECTED A&P Assessment and plan (1) MAE (obstructive sleep apnea): (2) COPD exacerbation: (3) COVID: (4) Acute respiratory failure with hypoxemia: (5) Nicotine dependence, cigarettes, uncomplicated: Plan .Acute hypoxic respiratory failure -Likely secondary to COPD exacerbation -Has COVID-19, CT angiogram no significant groundglass opacities, has been treated with remdesivir for at least 3 days while he was here in the hospital -CT angiogram no pulm embolism, no focal pneumonia Plan -Continue CPAP at night. May use BiPAP in the hospital as needed however she has not needed today. -DuoNeb, budesonide -Solu-Medrol 40 every 8 hours -Monitor respiratory status closely -Follow sputum cultures, blood cultures -We will hold off on further remdesivir -Serial EKGs, troponins, telemetry, -Will need prolonged prednisone taper at discharge. -Lovenox for DVT prophylaxis -Full code Attestations Medical Necessity Statement*: May be able to go home today if transportation set up with the patient. Coding Level of Care Code Acute Code for [facility] Fwd Diagnoses MAE (obstructive sleep apnea) G47.33 COPD exacerbation J44.1 COVID U07.1 Acute respiratory failure with hypoxemia J96.01 Nicotine dependence, cigarettes, uncomplicated F17.210
--- NOTE | 2022-11-19 14:44 | P.DS_ITS ---
Discharge Providers Date of Admission: 11/19/22 00:47 Date of Discharge: November 19, 2022 Attending Provider at Admission: Isaac Musa MD Attending Provider at Discharge: Josy Clancy MD Primary Care Provider: ALLISON Livingston Diagnoses at Discharge Discharge Diagnosis (1) MAE (obstructive sleep apnea): Status: Acute (2) COPD exacerbation: Status: Resolved (3) COVID: Status: Acute (4) Acute respiratory failure with hypoxemia: Status: Resolved (5) Nicotine dependence, cigarettes, uncomplicated: Status: Chronic Reason for Visit Reason for Visit: SOB Brief History: Tika Garcia is a 67 year old female with a past medical history of COPD, MAE on CPAP, anxiety depression, bipolar disorder, history of chronic back pain, who presents [facility] for shortness of breath.? Patient was recently discharged from [facility] for COPD exacerbation, COVID-19, he tells me that she got better when she got home, there was the night that she got home she was sleeping with her CPAP without oxygen, she felt short of breath the day after that she got home, but got a bit better but throughout today, she felt increasingly short of breath, short of breath at rest with exertion, no fevers, chills, has a nonproductive cough, no lightheadedness, no dizziness, no chest pain, no fevers Hospital Course Hospital Course Patient seen. She recently had COVID and was discharged but came back with COPD exacerbation. She states she was not using oxygen and her CPAP for 1 night. She feels she is back to her baseline and she is not going to get any better than this. She is requesting to be discharged. She is agreeable to take a prolonged prednisone taper. She is at her baseline oxygen. She states she has anxiety issues and sometimes has difficulty breathing but after she calms down she is okay. She is requesting repeatedly go home. Patient's lungs are clear to auscultation and she appears comfortably breathing on her nasal cannula at this time. I believe this is reasonable to do so. We can send her home on a prednisone taper to follow-up with her primary care doctor at this time. All questions answered. Physical Exam Narrative: See progress note from today. Discharge Data Studies Completed and Pending Completed Studies During Hospitalization Category Date Time Status CT angio chest PE protcl [id number] Urgent Cat Scan 11/18/22 21:54 Completed XR chest 1V portable [id number] Stat Exams 11/18/22 20:02 Completed Pending at discharge Category Date Time Status Blood Culture Stat Lab 11/18/22 20:22 Results Sputum Culture and Gram Stain Stat Lab 11/18/22 23:55 Uncollected Radiology Impressions Chest X-Ray 11/18/22 20:02 IMPRESSION: 1. No acute cardiopulmonary process. 2. Incidental/nonacute findings are listed in the report. Chest CTA 11/18/22 21:54 IMPRESSION: 1. No pulmonary embolus. 2. Right lower lobe bronchial wall thickening with progressive mucoid impaction suggesting bronchitis. No evidence of pneumonia. 3. Stable emphysema. Laboratory Results WBC 13.7 10^3/uL (4.0-10.0) H 11/19/22 04:03 RBC 4.26 10^6/uL (4.1-5.3) 11/19/22 04:03 Hgb 12.6 g/dL (11.5-15.3) 11/19/22 04:03 Hct 40.3 % (37.0-47.0) 11/19/22 04:03 MCV 94.6 fl (81-99) 11/19/22 04:03 MCH 29.6 pg (28.0-34.0) 11/19/22 04:03 MCHC 31.3 g/dL (30.0-36.0) 11/19/22 04:03 RDW 13.0 % (12.1-15.1) 11/19/22 04:03 Plt Count 386 10^3/cmm (130-400) 11/19/22 04:03 MPV 9.6 fL (7.4-10.4) 11/19/22 04:03 Neut % (Auto) 88.4 % 11/19/22 04:03 Lymph % (Auto) 9.2 % 11/19/22 04:03 [place] % (Auto) 1.7 % 11/19/22 04:03 Eos % (Auto) 0.0 % 11/19/22 04:03 Baso % (Auto) 0.1 % 11/19/22 04:03 Neut # (Auto) 12.13 10^3/uL (1.8-7.7) H 11/19/22 04:03 Lymph # (Auto) 1.3 10^3/uL (0.8-4.8) 11/19/22 04:03 [place] # (Auto) 0.2 10^3/uL (0.2-0.9) 11/19/22 04:03 Eos # (Auto) 0.0 10^3/uL (0.0-0.8) 11/19/22 04:03 Baso # (Auto) 0.0 10^3/uL (0.0-0.1) 11/19/22 04:03 Nucleated RBC % (auto) 0 % 11/19/22 04:03 Nucleated RBCs # 0.0 /100WBC 11/19/22 04:03 D-Dimer 1.82 ug/mIFEU (0-0.59) H 11/18/22 20:17 Specimen Type Arterial 11/18/22 20:05 Sample Site Radial, right 11/18/22 20:05 ABG pH 7.44 (7.35-7.45) 11/18/22 20:05 ABG pCO2 44.7 mmHg (35-45) 11/18/22 20:05 ABG pO2 210.0 mmHg (80.0-100.0) H 11/18/22 20:05 ABG HCO3 30.2 mmol/L (22-26) H 11/18/22 20:05 ABG O2 Saturation > 100.0 11/18/22 20:05 ABG Base Excess 5.2 mmol/L (-2.0-2.0) H 11/18/22 20:05 Tomás Test Pos 11/18/22 20:05 A-a O2 Gradient 11.2 mmHg (5-10) H 11/18/22 20:05 Hematocrit 42.8 % (37-47) 11/18/22 20:05 Hgb O2 Saturation 97.2 % (95-100) 11/18/22 20:05 Carboxyhemoglobin 2.3 %THgb (0.4-20.1) 11/18/22 20:05 Methemoglobin 0.7 % (0.4-1.5) 11/18/22 20:05 Total Hemoglobin 14.0 g/dL (12-16) 11/18/22 20:05 Sodium 138.0 mmol/L (131-143) 11/18/22 20:05 Potassium 3.8 mmol/L (3.5-5.0) 11/18/22 20:05 Glucose 125.0 mg/dL (70-115) H 11/18/22 20:05 Ionized Calcium 1.2 mmol/L (1.1-1.4) 11/18/22 20:05 O2 Delivery Device Bipap 11/18/22 20:05 FiO2 50.0 % 11/18/22 20:05 PEEP 10.0 cmH20 11/18/22 20:05 Social Service Agency Director ID [email or web address] 11/18/22 20:05 Sodium 132 mmol/L (136-145) L 11/19/22 04:03 Potassium 4.2 mmol/L (3.5-5.1) 11/19/22 04:03 Chloride 94 mmol/L (98-107) L 11/19/22 04:03 Carbon Dioxide 31 mmol/L (22-29) H 11/19/22 04:03 Anion Gap 11.2 (5-19) 11/19/22 04:03 BUN 15 mg/dL (8-23) 11/19/22 04:03 Creatinine 0.6 mg/dL (0.5-0.9) 11/19/22 04:03 GFR Calculation 99.4 mL/min (90-130) 11/19/22 04:03 Glucose 132 mg/dL (65-115) H 11/19/22 04:03 Calculated Osmolality 277 mOsm/kg (285-295) L 11/19/22 04:03 Lactic Acid 1.7 mmol/L (0.5-2.2) 11/18/22 20:17 Calcium 9.7 mg/dL (8.5-10.5) 11/19/22 04:03 Troponin T Baseline 19 ng/L (0-10) H 11/19/22 00:21 Troponin T 120 Minute 7.76 ng/L (0-10) 11/19/22 04:03 Delta Troponin T -11.24 ABS# (0-10) L 11/19/22 04:03 Troponin T Hi Sens 6Hr 8.60 ng/L (0-10) 11/19/22 06:26 Troponin T Hi Sens 6Hr Delta -10.4 ng/L (0-12) L 11/19/22 06:26 C-Reactive Protein 9.2 mg/L (0.0-4.9) H 11/18/22 20:17 NT-Pro-B Natriuret Pep 38 pg/mL (0-125) 11/19/22 04:03 Procalcitonin 0.03 ng/mL (0-0.5) 11/18/22 20:17 Vitals Last Vital Signs Temp 97.4 F L 11/19/22 12:00 Pulse 98 11/19/22 12:00 Resp 15 11/19/22 12:00 BP 138/89 11/19/22 12:00 Pulse Ox 96 11/19/22 12:00 O2 Del Method 11/19/22 12:00 O2 Flow Rate 3 11/19/22 12:00 FiO2 30 11/19/22 06:00 Discharge Plan Discharge Patient Disposition: Home Condition: Stable Prescriptions: New prednisone 10 mg tablet 10 mg PO DAILY Qty: 63 0RF Rx Instructions: 60 mg x3d 50 mg x3d 40 mg x3d 30 mg x3d 20 mg x3d 10 mg x3d Continued aspirin [Adult Low Dose Aspirin] 81 mg tablet,delayed release (DR/EC) 81 mg PO DAILY (DME) nebulizer accessories Kit See Rx Instructions .Route Qty: 1 0RF Rx Instructions: As directed (DME) compressor, for nebulizer Device See Rx Instructions .Route Qty: 1 0RF Rx Instructions: As directed Mucinex 1,200 mg tablet extended release 12hr 1,200 mg PO BID PRN (Reason: congestion) 30 Days Qty: 60 5RF budesonide 0.5 mg/2 mL suspension for nebulization 0.5 mg inhalation BID Qty: 120 11RF formoterol fumarate 20 mcg/2 mL solution for nebulization 2 ml inhalation BID Qty: 120 11RF revefenacin 175 mcg/3 mL solution for nebulization 175 mcg inhalation DAILY Qty: 90 11RF hydroxyzine HCl 25 mg tablet 25 mg PO BID PRN (Reason: anxiety) Qty: 60 3RF (DME) Wheelchair See Rx Instructions .Route .MEDSUPPLY Qty: 1 0RF Rx Instructions: As directed fluticasone propionate 50 mcg/actuation spray,suspension 2 spray INTRANASAL QDAY PRN (Reason: allergy symptoms) albuterol sulfate 2.5 mg /3 mL (0.083 %) solution for nebulization 2.5 mg inhalation QID PRN (Reason: shortness of breath or wheezing) Qty: 75 5RF (DME) oxygen concentrator with portable See Rx Instructions .Route .MEDSUPPLY Qty: 1 0RF Rx Instructions: as directed, 2L nasal cannula, oxygen concentrator with portable concentrator albuterol sulfate [ProAir HFA] 90 mcg/actuation HFA aerosol inhaler 2 puff INHALATION QID PRN (Reason: shortness of breath or wheezing) 30 Days Qty: 6.7 5RF pantoprazole [Protonix] 40 mg tablet,delayed release (DR/EC) 40 mg PO DAILY Qty: 30 5RF melatonin 5 mg tablet 5 mg PO BEDTIME PRN (Reason: sleep) Qty: 30 3RF gabapentin [Neurontin] 300 mg capsule 300 mg PO BID Qty: 60 2RF potassium chloride 10 mEq capsule, extended release 10 meq PO DAILY Qty: 30 3RF coenzyme Q10 [CoQ-10] 30 mg Capsule 30 mg PO DAILY Shaklee Multi Vitamin 1 tab PO DAILY diphenhydramine HCl [Benadryl] 25 mg capsule 50 mg PO DAILY PRN (Reason: Allergy Symptoms) aripiprazole [Abilify] 5 mg tablet 5 mg PO QPM turmeric 400 mg Capsule 400 mg PO DAILY trazodone 100 mg tablet 100 - 200 mg PO BEDTIME PRN (Reason: sleep) Ingrezza 40 mg capsule 40 mg PO DAILY montelukast [Singulair] 10 mg tablet 10 mg PO DAILY furosemide [Lasix] 20 mg tablet See Rx Instructions .ROUTE .COMPLEX Rx Instructions: 20 mg orally alternated with 40 mg orally every other day lovastatin 20 mg tablet 20 mg PO DAILY Discontinued prednisone 10 mg tablet See Rx Instructions .ROUTE .COMPLEX Qty: 36 0RF Rx Instructions: prednisone 5 mg: take 8 tablets (40 mg) on Day 1; 7 tablets (35 mg) on Day 2; then decrease by 1 tablet every day until finished Discharge Orders: Discharge Order (Routine); Ordered 11/19/22 Ordered By: Josy Clancy Referrals: AlvarezrEverett MD [Physician] - 11/26/22 9:30 am Tracey Shrestha FNP-C [Primary Care Provider] - 11/23/22 9:00 am Discharge Diet: Usual diet Discharge Activity: Increase activity as tolerated and Oxygen as instructed Patient Instructions: Prednisone (By mouth), COPD (Chronic Obstructive Pulmonary Disease) (DC), COVID-19 (Coronavirus Disease 2019) (DC), Opioid Safety Activity Restrictions/Additional Instructions: Please return to ER if you have worsening symptoms or new symptoms develop. Complete your new prednisone taper as discussed with you prior to discharge. Follow up with pcp and pulmonology as directed. Discharge Attestations Time Spent in Discharge Care*: less than 30 min Quality Metrics Clinical Quality Measures [ No reported AMI, CVA or VTE this stay] Coding Level of Care Code Acute [facility] note Diagnoses MAE (obstructive sleep apnea) G47.33 COPD exacerbation J44.1 COVID U07.1 Acute respiratory failure with hypoxemia J96.01 Nicotine dependence, cigarettes, uncomplicated F17.210
== END 2022-11-19 16:41 | disposition home or self-care (01) ==
LOC: ER 23:38 → MEDSURG 11-19 00:48
PROVIDERS: Family Medicine; Admitting Provider Family Medicine; Emergency Provider Emergency Medicine; PCP Nurse Practitioner Family; Visit Provider Internal Medicine
DX: U07.1 COVID-19 (principal); G47.33 Obstructive sleep apnea (adult) (pediatric); J44.1 Chronic obstructive pulmonary disease with (acute) exacerbation; J96.01 Acute respiratory failure with hypoxia; F17.210 Nicotine dependence, cigarettes, uncomplicated; F41.9 Anxiety disorder, unspecified; F32.A Depression, unspecified; Z99.81 Dependence on supplemental oxygen; Z79.82 Long term (current) use of aspirin; E78.5 Hyperlipidemia, unspecified
CPT/HCPCS: 36415; 36600; 71045; 71275; 80048; 80051; 82330; 82805; 83605; 83880; 84145; 84484; 85025; 85378; 86140; 87040; 93005; 94640; 94660; 94664; 96372; 96374; 96375; 99285; G0378; J1650; J2060; J2405; J2920; J3490; J7626; Q9967

== ENCOUNTER → 2022-12-12 14:48 | Outpatient (BNVA) | payer MEDICARE, MEDICAID, SELFPAY ==
[2022-11-13 09:28] VITALS: BP 111/72; BMI 24.9
== END ==
PROVIDERS: PCP Nurse Practitioner Family; Visit Provider Internal Medicine Pulmonary Disease
DX: J44.1 Chronic obstructive pulmonary disease with (acute) exacerbation (principal); J45.909 Unspecified asthma, uncomplicated; F17.210 Nicotine dependence, cigarettes, uncomplicated; Z99.81 Dependence on supplemental oxygen
CPT/HCPCS: 99214

== ENCOUNTER → 2022-12-20 10:15 | Outpatient (BNVA) | payer MEDICARE, MEDICAID, SELFPAY ==
[2022-11-13 09:28] VITALS: BP 111/72; BMI 24.9
== END ==
PROVIDERS: PCP Nurse Practitioner Family; Visit Provider Anesthesiology Pain Medicine
DX: M51.37 Other intervertebral disc degeneration, lumbosacral region (principal); M47.816 Spondylosis without myelopathy or radiculopathy, lumbar region; M53.3 Sacrococcygeal disorders, not elsewhere classified; M79.604 Pain in right leg; M79.605 Pain in left leg
CPT/HCPCS: 99215

== ENCOUNTER → 2022-12-25 11:02 | Outpatient (BNVA) | payer MEDICARE, MEDICAID, SELFPAY ==
[2022-11-13 09:28] VITALS: BP 111/72; BMI 24.9
== END ==
PROVIDERS: PCP Nurse Practitioner Family; Visit Provider Physician Assistant
DX: M47.816 Spondylosis without myelopathy or radiculopathy, lumbar region (principal); M53.3 Sacrococcygeal disorders, not elsewhere classified
CPT/HCPCS: 99213

== ENCOUNTER 2023-01-01 10:00 | Outpatient (CLI) | payer MEDICARE, MEDICAID, SELFPAY ==
[2022-11-13 09:28] VITALS: BP 111/72; BMI 24.9
--- NOTE | 2023-01-01 | ECG_ITS ---
[facility] Test Date: 2023-01-01 Pat Name: Tika Garcia Department: Room: Gender: Female Tube Repairer: Brittnee Dash : 1955 Requested By: Everett Lindsey Order Number: [id number] Lukasz MD: Becky Bro M.D. Interpretive Statements NAME OF STUDY: LEXISCAN SESTAMIBI STRESS TEST INDICATION: Dyspnea on Exertion, PROCEDURE: At the baseline, the EKG revealed. The baseline heart was 83 bpm with a blood pressue of 119/77 mm of Hg Lexiscan was infused over a period of 20 seconds. A total of 0.4 milligrams of Lexiscan was infused. The stress phase was continued for a total of 5 minutes. Heart rate at the end of the stress phase was 110 bpm with a blood pressure 111/58 mm of Hg. The EKG at the peak infusion revealed no significant changes. Sestamibi was injected 20 seconds after the Lexiscan infusion. Heart rate at the end of the recovery phase was 99 bpm with a blood pressure of 109/55 mm of Hg. CONCLUSION: 1. No significant EKG changes with the LexiScan infusion 2. No LexiScan induced chest pain or cardiac arrhythmia 3. Normal blood pressure and heart rate response 4. Sestamibi/sestamibi perfusion scan pending; see separate report. Electronically Signed On 01-05-2023 16:06:33 FLIGHT STEWARD by Becky Bro M.D. [email or web address]
[2023-01-01 10:20] VITALS: BMI 24.2
--- NOTE | 2023-01-01 10:23 | NMCV_ITS ---
NM siri perf SPECT r/s* [id number] Tika Garcia Age: 67 Gender: F : 1955 Exam Date: 01/01/2023 10:23 Ordering Phys: Everett Albarran MD Technologist: CORINNE Tapia Exam Location: [facility] Indications: SHORTNESS OF BREATH, NICOTINE DEPENDENCE STRESS TEST [facility] IMAGE PROTOCOL Rest/Stress 1 Lexiscan Day Radiopharmaceutical Dose (mCi) Administration Site Administered by Rest: Tc-99m 10.8 IV CORINNE Tapia Sestamibi Stress:Tc-99m 32.8 IV CORINNE Leong Sestamibi Rest: 01-Jan-2023 60 Discovery 630 Stress: 01-Jan-2023 30 Discovery 630 0.4mg Lexiscan. Supine position only as patient was unable to lay prone. SPECT RESULTS Technical Quality: Excellent Raw Data Analysis: Normal Image Corrections: No attenuation or motion correction applied Summed Stress Score: 1 Summed Rest Score: 1 Summed Difference Score: 0 PERFUSION FINDINGS Small area of slightly decreased tracer uptake was noted in the apical septal region, with no significant reversibility FUNCTIONAL RESULTS (calculated via Gated SPECT) Stress Image LV EF (%): 93 Stress EDV (mL):58 TID: 1.07 Stress ESV (mL):4 FUNCTIONAL FINDINGS: Segmental wall motion analysis revealing no gross wall motion abnormalities IMPRESSIONS 1. Myocardial perfusion imaging revealing small area of persistent decreased tracer uptake in the apical septal region, suggestive of myocardial scarring versus attenuation artifact 2. Normal LV ejection fraction 93%. 3. LV wall motion analysis revealing no gross wall motion abnormalities. 4. Normal LV volume Low probability for coronary ischemia, based on the above findings Dr Becky Bro MD [facility] (Electronically Signed) Final Date: 01 January 2023 14:14 S
[2023-01-01] MEDS: regadenoson 0.4 Mg/5 ml Syringe IVP (12:05)
[2023-01-01 12:24] VITALS: BP 109/55; PULSE 99
== END 2023-01-01 10:01 | disposition home or self-care (01) ==
LOC: CDL 10:04
PROVIDERS: PCP Nurse Practitioner Family; Visit Provider Internal Medicine Pulmonary Disease
DX: R06.09 Other forms of dyspnea (principal)
CPT/HCPCS: 36415; 78452; 96374; A9500; J2785

== ENCOUNTER → 2023-01-10 10:15 | Outpatient (BNVA) | payer MEDICARE, MEDICAID, SELFPAY ==
[2022-11-13 09:28] VITALS: BP 111/72; BMI 24.9
== END ==
PROVIDERS: PCP Nurse Practitioner Family; Visit Provider Nurse Practitioner Family
DX: Z79.899 Other long term (current) drug therapy (principal); F31.62 Bipolar disorder, current episode mixed, moderate; R13.10 Dysphagia, unspecified; E78.5 Hyperlipidemia, unspecified; Z12.31 Encounter for screening mammogram for malignant neoplasm of breast; R82.998 Other abnormal findings in urine; J44.1 Chronic obstructive pulmonary disease with (acute) exacerbation; F17.210 Nicotine dependence, cigarettes, uncomplicated; K21.9 Gastro-esophageal reflux disease without esophagitis; M19.90 Unspecified osteoarthritis, unspecified site; M54.9 Dorsalgia, unspecified; Z12.11 Encounter for screening for malignant neoplasm of colon
CPT/HCPCS: 80053; 80061; 83036; 84443; 85025

== ENCOUNTER → 2023-02-04 08:44 | Outpatient (BNVA) | payer MEDICARE, MEDICAID, SELFPAY ==
[2022-11-13 09:28] VITALS: BP 111/72; BMI 24.9
== END ==
PROVIDERS: PCP Nurse Practitioner Family; Visit Provider Anesthesiology Pain Medicine
DX: M47.816 Spondylosis without myelopathy or radiculopathy, lumbar region (principal); M51.37 Other intervertebral disc degeneration, lumbosacral region; M53.3 Sacrococcygeal disorders, not elsewhere classified; M79.604 Pain in right leg; M79.605 Pain in left leg; J44.1 Chronic obstructive pulmonary disease with (acute) exacerbation
CPT/HCPCS: 99214

== ENCOUNTER → 2023-02-12 14:12 | Outpatient (BNVA) | payer MEDICARE, MEDICAID, SELFPAY ==
[2022-11-13 09:28] VITALS: BP 111/72; BMI 24.9
== END ==
PROVIDERS: PCP Nurse Practitioner Family; Visit Provider Otolaryngology
DX: R13.10 Dysphagia, unspecified (principal); K21.9 Gastro-esophageal reflux disease without esophagitis; R09.89 Other specified symptoms and signs involving the circulatory and respiratory systems
CPT/HCPCS: 31575; 99213

== ENCOUNTER 2023-02-26 10:43 | Outpatient (CLI) | payer MEDICARE, MEDICAID, SELFPAY ==
[2022-11-13 09:28] VITALS: BP 111/72; BMI 24.9
--- NOTE | 2023-02-26 10:51 | MM_ITS ---
WS: [id number] VIEWS: MLO and CC views both breasts. 3D digital tomosynthesis is also included in this exam. Comparison made with prior exam of 05/09/2015, 06/11/2016, 06/23/2018, 07/31/2019, 11/25/2020, 02/20/2022.. Findings: There was no sign of mass, architectural distortion or suspicious calcification in either breast. Sc attered fibroglandular densities MM/[place] [id number] Impression: BI-RADS: 2-Benign FOLLOW-UP: 1 Year Follow-up This mammogram was also analyzed by the Computer Aided Detection System R2 Imag e Valet Attendant.
== END 2023-02-26 10:44 | disposition home or self-care (01) ==
LOC: RAD 10:46
PROVIDERS: PCP Nurse Practitioner Family; Visit Provider Nurse Practitioner Family
DX: Z12.31 Encounter for screening mammogram for malignant neoplasm of breast (principal); R82.998 Other abnormal findings in urine
CPT/HCPCS: 77063; 77067; 81000

== ENCOUNTER 2023-03-04 10:33 | Outpatient (CLI) | payer MEDICARE, MEDICAID, SELFPAY ==
[2022-11-13 09:28] VITALS: BP 111/72; BMI 24.9
--- NOTE | 2023-03-04 10:45 | FL_ITS ---
WS: [id number] FL barium swallow modifd [id number] REASON FOR EXAM: Difficulty swallowing FLUOROSCOPY TIME: 2min [id number] # OF SPOT FILMS: 0 FINDINGS: Examination was supervised by the speech therapy department. The swallowing of varying consistencies of barium in the sitting upright position, lateral projection , was monitored and recorded with video fluoroscopy. No aspiration was identified. Detailed analysis and report will be rendered by the speech therapy department. FL/FL barium swallow modifd [id number] IMPRESSION: Modified barium swallow as above.
== END 2023-03-04 10:34 | disposition home or self-care (01) ==
LOC: RAD 10:40
PROVIDERS: PCP Nurse Practitioner Family; Visit Provider Otolaryngology
DX: R13.10 Dysphagia, unspecified (principal)
CPT/HCPCS: 74230; 92611

== ENCOUNTER → 2023-03-13 14:21 | Outpatient (BNVA) | payer MEDICARE, MEDICAID, SELFPAY ==
[2022-11-13 09:28] VITALS: BP 111/72; BMI 24.9
== END ==
PROVIDERS: PCP Nurse Practitioner Family; Visit Provider Otolaryngology
DX: H61.23 Impacted cerumen, bilateral (principal); R09.89 Other specified symptoms and signs involving the circulatory and respiratory systems
CPT/HCPCS: 69210; 99213

== ENCOUNTER → 2023-03-19 15:09 | Outpatient (BNVA) | payer MEDICARE, MEDICAID, SELFPAY ==
[2022-11-13 09:28] VITALS: BP 111/72; BMI 24.9
== END ==
PROVIDERS: PCP Nurse Practitioner Family; Visit Provider Obstetrics & Gynecology
DX: Z12.4 Encounter for screening for malignant neoplasm of cervix (principal)
CPT/HCPCS: 87624

== ENCOUNTER → 2023-03-28 10:45 | Outpatient (BNVA) | payer MEDICARE, MEDICAID, SELFPAY ==
[2022-11-13 09:28] VITALS: BP 111/72; BMI 24.9
== END ==
PROVIDERS: PCP Nurse Practitioner Family; Visit Provider Anesthesiology Pain Medicine
DX: M51.37 Other intervertebral disc degeneration, lumbosacral region (principal); M47.816 Spondylosis without myelopathy or radiculopathy, lumbar region; M53.3 Sacrococcygeal disorders, not elsewhere classified; J44.9 Chronic obstructive pulmonary disease, unspecified
CPT/HCPCS: 99213

== ENCOUNTER → 2023-04-16 14:33 | Outpatient (BNVA) | payer MEDICARE, MEDICAID, SELFPAY ==
[2022-11-13 09:28] VITALS: BP 111/72; BMI 24.9
== END ==
PROVIDERS: PCP Nurse Practitioner Family; Visit Provider Anesthesiology Pain Medicine
DX: M47.816 Spondylosis without myelopathy or radiculopathy, lumbar region (principal)
CPT/HCPCS: 64635; 64636; J1030

== ENCOUNTER → 2023-05-02 11:01 | Outpatient (BNVA) | payer MEDICARE, MEDICAID, SELFPAY ==
[2022-11-13 09:28] VITALS: BP 111/72; BMI 24.9
== END ==
PROVIDERS: PCP Nurse Practitioner Family; Visit Provider Internal Medicine Pulmonary Disease
DX: J44.1 Chronic obstructive pulmonary disease with (acute) exacerbation (principal); J45.909 Unspecified asthma, uncomplicated; F17.210 Nicotine dependence, cigarettes, uncomplicated; Z86.16 Personal history of COVID-19; Z99.81 Dependence on supplemental oxygen
CPT/HCPCS: 99214

== ENCOUNTER → 2023-05-08 13:31 | Outpatient (BNVA) | payer MEDICARE, MEDICAID, SELFPAY ==
[2022-11-13 09:28] VITALS: BP 111/72; BMI 24.9
== END ==
PROVIDERS: PCP Nurse Practitioner Family; Visit Provider Obstetrics & Gynecology
DX: R10.2 Pelvic and perineal pain (principal); N85.4 Malposition of uterus
CPT/HCPCS: 76830

== ENCOUNTER → 2023-05-14 10:16 | Outpatient (BNVA) | payer MEDICARE, MEDICAID, SELFPAY ==
[2022-11-13 09:28] VITALS: BP 111/72; BMI 24.9
== END ==
PROVIDERS: PCP Nurse Practitioner Family; Visit Provider Anesthesiology Pain Medicine
DX: M51.37 Other intervertebral disc degeneration, lumbosacral region (principal); M47.816 Spondylosis without myelopathy or radiculopathy, lumbar region; M53.3 Sacrococcygeal disorders, not elsewhere classified
CPT/HCPCS: 99214

== ENCOUNTER → 2023-06-05 14:01 | Outpatient (BNVA) | payer MEDICARE, MEDICAID, SELFPAY ==
[2022-11-13 09:28] VITALS: BP 111/72; BMI 24.9
== END ==
PROVIDERS: PCP Nurse Practitioner Family; Visit Provider Anesthesiology Pain Medicine
DX: M47.816 Spondylosis without myelopathy or radiculopathy, lumbar region (principal)
CPT/HCPCS: 64635; 64636; J1030

== ENCOUNTER → 2023-06-20 13:46 | Outpatient (BNVA) | payer MEDICARE, SELFPAY ==
[2022-11-13 09:28] VITALS: BP 111/72; BMI 24.9
== END ==
PROVIDERS: PCP Nurse Practitioner Family; Visit Provider Nurse Practitioner Family
DX: J44.9 Chronic obstructive pulmonary disease, unspecified (principal); E78.5 Hyperlipidemia, unspecified; F31.62 Bipolar disorder, current episode mixed, moderate; R73.09 Other abnormal glucose
CPT/HCPCS: 80053; 80061; 83036; 84443; 85025

== ENCOUNTER → 2023-06-24 09:37 | Outpatient (BNVA) | payer MEDICARE, MEDICAID, SELFPAY ==
[2022-11-13 09:28] VITALS: BP 111/72; BMI 24.9
== END ==
PROVIDERS: PCP Nurse Practitioner Family; Visit Provider Anesthesiology Pain Medicine
DX: M54.9 Dorsalgia, unspecified (principal); M51.37 Other intervertebral disc degeneration, lumbosacral region; M47.816 Spondylosis without myelopathy or radiculopathy, lumbar region; M53.3 Sacrococcygeal disorders, not elsewhere classified
CPT/HCPCS: 99214

== ENCOUNTER → 2023-08-14 15:23 | Outpatient (BNVA) | payer MEDICARE, SELFPAY ==
[2022-11-13 09:28] VITALS: BP 111/72; BMI 24.9
== END ==
PROVIDERS: PCP Nurse Practitioner Family; Visit Provider Obstetrics & Gynecology
DX: N89.8 Other specified noninflammatory disorders of vagina (principal); Z12.4 Encounter for screening for malignant neoplasm of cervix
CPT/HCPCS: 87491; 87591; 87624

== ENCOUNTER → 2023-08-20 09:48 | Outpatient (BNVA) | payer MEDICARE, MEDICAID, SELFPAY ==
[2022-11-13 09:28] VITALS: BP 111/72; BMI 24.9
== END ==
PROVIDERS: PCP Nurse Practitioner Family; Visit Provider Physician Assistant
DX: M47.816 Spondylosis without myelopathy or radiculopathy, lumbar region (principal); M47.818 Spondylosis without myelopathy or radiculopathy, sacral and sacrococcygeal region
CPT/HCPCS: 99213

== ENCOUNTER → 2023-09-03 12:24 | Outpatient (BNVA) | payer MEDICARE, MEDICAID, SELFPAY ==
[2022-11-13 09:28] VITALS: BP 111/72; BMI 24.9
== END ==
PROVIDERS: PCP Nurse Practitioner Family; Referring Provider Nurse Practitioner Family; Visit Provider Nurse Practitioner Family
DX: L29.8 Other pruritus (principal); L57.8 Other skin changes due to chronic exposure to nonionizing radiation; L85.3 Xerosis cutis
CPT/HCPCS: 99204

== ENCOUNTER → 2023-09-10 10:11 | Outpatient (BNVA) | payer MEDICARE, SELFPAY ==
[2022-11-13 09:28] VITALS: BP 111/72; BMI 24.9
== END ==
PROVIDERS: PCP Nurse Practitioner Family; Visit Provider Nurse Practitioner Family
DX: L29.8 Other pruritus (principal); L57.8 Other skin changes due to chronic exposure to nonionizing radiation; F31.62 Bipolar disorder, current episode mixed, moderate; Z79.899 Other long term (current) drug therapy
CPT/HCPCS: 80048; 80076; 84439; 84443; 85025; 86803

== ENCOUNTER 2023-09-15 09:51 | Emergency (ER) | payer MEDICARE, MEDICAID, SELFPAY ==
[2022-11-13 09:28] VITALS: BP 111/72; BMI 24.9
[2023-09-15] VITALS (9 sets, daily range): BP systolic 116–148; BP diastolic 75–102; PULSE 76–107; RESP 18–21; TEMP 36.8; O2SAT 95–99; BMI 25.0
--- NOTE | 2023-09-15 10:09 | ECG_ITS ---
[facility] Test Date: 2023-09-15 Pat Name: Tika Garcia Department: Room: Gender: Female Clinical Physician Assistant: : 1955 Requested By: Rajinder Mcdonald Order Number: [id number] Lukasz MD: Merlyn Fung M.D. Measurements Intervals [place] Rate: 83 P: 78 NC: 175 QRS: 246 QRSD: 85 T: 64 QT: 366 QTc: 431 Interpretive Statements SINUS RHYTHM INDETERMINATE AXIS LOW QRS VOLTAGE IN PRECORDIAL LEADS [QRS DEFLECTION < 1.0 mV IN CHEST LEADS] POSSIBLE ANTERIOR MYOCARDIAL INFARCTION , OF INDETERMINATE AGE [30 ms Q WAVE IN V3/V4, OR R < 0.2 mV IN V4] Compared to ECG 11/19/2022 05:46:41 Indeterminate axis now present Low QRS voltage now present Myocardial infarct finding now present Electronically Signed On 09-16-2023 8:10:03 [employer]IRE WEAVER by Merlyn Fung M.D. [email or web address]
--- NOTE | 2023-09-15 10:10 | XRR_ITS ---
PROCEDURE INFORMATION: Exam: XR Chest Exam date and time: 09/15/2023 10:38 AM Age: 68 years old Clinical indication: Shortness of breath; Additional info: SOB, hemoptysis TECHNIQUE: Imaging protocol: Radiologic exam of the chest. Views: 1 view. COMPARISON: CR XR chest 1V portable [id number] 11/18/2022 8:46 PM FINDINGS: Lungs: There is no consolidation. Pleural spaces: There is no pleural effusion or pneumothorax. Heart/Mediastinum: Cardiomediastinal contours are unremarkable. Bones/joints: Bones are unremarkable. XR/XR chest 1V portable [id number] IMPRESSION: No acute findings.
--- NOTE | 2023-09-15 10:18 | W.ED.SOB ---
HPI - SOB/Dyspnea General: Chief Complaint: Shortness of Breath/Dyspnea Stated Complaint: SOB Time Seen by Provider: 09/15/23 10:10 Source: patient Mode of arrival: ambulatory Limitations: no limitations History of Present Illness: HPI Narrative: 68-year-old female has a history of COPD states she wears 3 L of oxygen at baseline. Patient states that she does have a chronic cough but became concerned this morning she had had coughing up some slight blood. She denies any fever denies any increased shortness of breath. She is on 3 L here and is 98%. Denies any chest pains. Associated symptoms: Reports hemoptysis; Deny abdominal pain, chest pain, fever(s), nausea or vomiting Review of Systems Const: Denies: fever(s), chills, body aches or change in appetite ENMT: Denies: throat pain or dental pain Card: Denies: chest pain Resp: Reports: dyspnea and hemoptysis GI: Denies: abdominal pain, nausea, vomiting or diarrhea : Denies: dysuria Musc: Denies: neck pain or back pain Skin/Breast: Denies: rash Neuro: Denies: headache(s) Psych: Denies: depression Neal/Lymph: Denies: easy bruising All/Imm: Denies: urticaria PFSH ED PFSH: Medical History Acute exacerbation of chronic obstructive pulmonary disease (COPD) Anxiety and depression Back pain Bipolar 1 disorder, mixed, moderate Bipolar disorder, current episode mixed, unspecified Chronic arthritis Chronic gastroesophageal reflux disease Chronic GERD Chronic neck and back pain Chronic obstructive pulmonary disease, unspecified Chronic post-traumatic stress disorder COPD (chronic obstructive pulmonary disease) COVID DDD (degenerative disc disease), lumbosacral Depression, major, recurrent, moderate Dry throat Dyskinesia, tardive Drug induced Dyslipidemia Environmental and seasonal allergies Localized swelling, mass and lump, lower limb, bilateral Major depressive disorder, recurrent episode, moderate with anxious distress Obstructive sleep apnea Panic disorder with agoraphobia Psychiatric care Unspecified hearing loss, left ear Surgical History H/O esophagogastroduodenoscopy (11/08/21) History of back surgery History of bilateral knee replacement History of colonoscopy within 10 yrs History of D&C History of laparoscopy History of sinus surgery History of tonsillectomy Family History Other Cancer Chronic obstructive pulmonary disease, unspecified Diabetes Heart disease Hyperlipidemia Hypertension Thyroid disease Denies family history of Colon cancer Ovarian cancer Breast cancer Uterine cancer Stroke Female Reproductive History: Para: 0 Spontaneous abortions: No Date of menopause: 05/03/04 Physical Exam Const: COMMON NORMALS: no acute distress, patient oriented x3 and healthy appearing HENMT: COMMON NORMALS: normocephalic and atraumatic HEAD & SCALP: normocephalic and atraumatic Eye: COMMON NORMALS: Equal, round and reactive pupils present and EOMs intact bilaterally PUPIL: Yes Equal, round and reactive pupils present Neck/C-Spine: COMMON NORMALS: full ROM and supple Chest: COMMONS NORMALS: normal inspection of the chest and normal palpation of entire chest wall Resp: COMMON NORMALS: normal respiratory effort, No retractions, No use of accessory muscles and clear to auscultation bilaterally AUSCULTATION: clear to auscultation bilaterally Cardio: COMMON NORMALS: regular rate, regular rhythm and No murmurs present (Cardio) RATE: regular rate RHYTHM: regular rhythm GI: COMMON NORMALS: Normal to inspection, nondistended, normoactive bowel sounds present, Soft to palpation, non-tender and no masses PALPATION: Yes Soft to palpation Extremity: COMMON NORMALS: normal to inspection and full ROM Neuro: COMMON NORMALS: patient oriented x3, moves all extremities and no focal motor deficits Psych: COMMON NORMALS: mental status grossly normal, Normal thought process present and cooperative THOUGHT PROCESS: Normal thought process present Skin: COMMON NORMALS: no rashes or lesions noted and no wounds GENERAL SKIN EXAM: no rashes or lesions noted Course Vital Signs: Vital signs: Vital Signs Temperature 98.2 F 09/15/23 10:00 Pulse Rate 82 09/15/23 10:55 Respiratory Rate 18 09/15/23 10:55 Blood Pressure 117/76 09/15/23 11:17 Pulse Oximetry 96 09/15/23 11:17 Oxygen Delivery Me thod Nasal Cannula 09/15/23 11:17 Oxygen Flow Rate 5 09/15/23 11:17 MDM - SOB/Dyspnea Medical Decision Making Patient presents with hemoptysis possible slight pneumonia we will start on Keflex she does not have a PE she has been in no increased distress here as at her baseline 3 L of oxygen she is stable for discharge she is follow-up with PCP and return if worsening. Medical Records I reviewed the patient's medical records. Lab Data I reviewed the patient's lab results. 09/15/23 10:29 09/15/23 10:29 Labs/Radiology: Radiology Impressions Chest X-Ray 09/15/23 10:10 IMPRESSION: No acute findings. Chest CTA 09/15/23 11:08 IMPRESSION: 1. No pulmonary embolism. 2. Mild centrilobular emphysema. 3. Nonspecific focal reticular opacity in the central aspect of the lingula. Possible subsegmental atelectasis or low-grade infection. 4. Mild L1 superior endplate compression fracture is new since 11/18/2022. 5. Moderate severity T5 superior endplate compression fracture is mildly progressive since 11/18/2022. 6. 16 mm left adrenal nodule, stable since 11/18/2022. Consider 12 month follow-up adrenal CT. (Reference: Haley) 7. Incidental findings above. COMMENTS: In the absence of a history or active diagnosis of lung cancer, it is recommended that this patient with emphysema be evaluated for enrollment in a low dose CT lung cancer screening program. REFERENCES: Haley TOBIAS, et al. Management of Incidental Adrenal Masses: A White Paper of the ACR Incidental Findings Committee. J Am [facility] Radiol. 2017;14(8):5055-6751. Laboratory Results WBC 8.53 10^3/uL (3.29-11.43) 09/15/23 10:29 RBC 4.59 10^6/uL (3.85-5.65) 09/15/23 10:29 Hgb 14.60 g/dL (11.27-16.99) 09/15/23 10:29 Hct 47.1 % (36-47) H 09/15/23 10:29 MCV 102.6 fl (85-98) H 09/15/23 10:29 MCH 31.8 pg (27-33) 09/15/23 10:29 MCHC 31.0 g/dL (30-55) 09/15/23 10:29 RDW 12.2 % (12.1-15.1) 09/15/23 10:29 Plt Count 267 10^3/cmm (157-399) 09/15/23 10:29 MPV 9.4 fL (7.4-10.4) 09/15/23 10:29 Neut % (Auto) 77.7 % 09/15/23 10:29 Lymph % (Auto) 16.8 % 09/15/23 10:29 Hand % (Auto) 3.0 % 09/15/23 10:29 Eos % (Auto) 1.6 % 09/15/23 10:29 Baso % (Auto) 0.7 % 09/15/23 10:29 Neut # (Auto) 6.62 10^3/uL (1.8-7.7) 09/15/23 10:29 Lymph # (Auto) 1.4 10^3/uL (0.8-4.8) 09/15/23 10:29 Hand # (Auto) 0.3 10^3/uL (0.2-0.9) 09/15/23 10:29 Eos # (Auto) 0.1 10^3/uL (0.0-0.8) 09/15/23 10:29 Baso # (Auto) 0.1 10^3/uL (0.0-0.1) 09/15/23 10:29 Nucleated RBC % (auto) 0 % 09/15/23 10:29 Nucleated RBCs # 0.0 /100WBC 09/15/23 10:29 D-Dimer 1.28 ug/mLFEU (0-0.59) H 09/15/23 10:29 Specimen Type Arterial 09/15/23 10:53 Sample Site Brachial, right 09/15/23 10:53 ABG pH 7.40 (7.35-7.45) 09/15/23 10:53 ABG pCO2 46.2 mmHg (35-45) H 09/15/23 10:53 ABG pO2 76.3 mmHg (80.0-100.0) L 09/15/23 10:53 ABG PO2/FiO2 Ratio 0 09/15/23 10:53 ABG HCO3 28.5 mmol/L (22-26) H 09/15/23 10:53 ABG Base Excess 3.0 mmol/L (-2.0-2.0) H 09/15/23 10:53 Tomás Test Pos 09/15/23 10:53 Hematocrit 44.5 % (37-47) 09/15/23 10:53 Hgb O2 Saturation 93.6 % (95-100) L 09/15/23 10:53 Carboxyhemoglobin 2.8 %THgb (0.4-20.1) 09/15/23 10:53 Methemoglobin 0.6 % (0.4-1.5) 09/15/23 10:53 Total Hemoglobin 14.5 g/dL (12-16) 09/15/23 10:53 O2 Delivery Device Nc 09/15/23 10:53 O2 Liters/Min 3.0 % 09/15/23 10:53 FiO2 32.0 % 09/15/23 10:53 Rv Technician ID Monro 09/15/23 10:53 Sodium 140 mmol/L (136-145) 09/15/23 10:29 Potassium 4.4 mmol/L (3.5-5.1) 09/15/23 10:29 Chloride 102 mmol/L (98-107) 09/15/23 10:29 Carbon Dioxide 28 mmol/L (22-29) 09/15/23 10:29 Anion Gap 14.4 (5-19) 09/15/23 10:29 BUN 15 mg/dL (8-23) 09/15/23 10:29 Creatinine 0.7 mg/dL (0.5-0.9) 09/15/23 10:29 GFR Calculation 83.0 mL/min (90-130) L 09/15/23 10:29 Glucose 101 mg/dL (65-115) 09/15/23 10:29 Calculated Osmolality 291 mOsm/kg (285-295) 09/15/23 10:29 Calcium 9.5 mg/dL (8.5-10.5) 09/15/23 10:29 Total Bilirubin 0.4 mg/dL (0.15-1.2) 09/15/23 10:29 AST 25 U/L (0-32) 09/15/23 10:29 ALT 25 U/L (0-33) 09/15/23 10:29 Alkaline Phosphatase 94 U/L (35-105) 09/15/23 10:29 NT-Pro-B Natriuret Pep 52 pg/mL (0-125) 09/15/23 10:29 Total Protein 7.2 g/dL (6.6-8.7) 09/15/23 10:29 Albumin 4.3 g/dL (3.5-5.2) 09/15/23 10:29 Globulin 2.9 g/dL (1.3-4.6) 09/15/23 10:29 Influenza Type A Ag negative (Negative) 09/15/23 11:17 Influenza Type B Ag negative (Negative) 09/15/23 11:17 SARS-CoV-2 Ag (Rapid) negative (Negative) 09/15/23 11:17 All radiology interpretation(s) finalized by discharge EKG Data EKG 1: I personally reviewed and interpreted this EKG as follows: EKG Interpretation Date: 09/15/23 EKG interpretation time: 10:22 Interpretation: nsr hr [address] or t wave abnormalities qrs 85 q tc 406 Discharge Plan Discharge Patient Disposition: Home Clinical Impression: Acute exacerbation of chronic obstructive airways disease Condition: Stable Prescriptions: New cephalexin 500 mg capsule 500 mg PO TID 7 Days Qty: 21 0RF No Action aspirin [Adult Low Dose Aspirin] 81 mg tablet,delayed release (DR/EC) 81 mg PO DAILY (DME) compressor, for nebulizer Device See Rx Instructions .Route Qty: 1 0RF Rx Instructions: As directed budesonide 0.5 mg/2 mL suspension for nebulization 0.5 mg inhalation BID Qty: 120 11RF formoterol fumarate 20 mcg/2 mL solution for nebulization 2 ml inhalation BID Qty: 120 11RF revefenacin 175 mcg/3 mL solution for nebulization 175 mcg inhalation DAILY Qty: 90 11RF (DME) Wheelchair See Rx Instructions .Route .MEDSUPPLY Qty: 1 0RF Rx Instructions: As directed albuterol sulfate 2.5 mg /3 mL (0.083 %) solution for nebulization 2.5 mg inhalation QID PRN (Reason: shortness of breath or wheezing) Qty: 75 5RF albuterol sulfate [ProAir HFA] 90 mcg/actuation HFA aerosol inhaler 2 puff INHALATION QID PRN (Reason: shortness of breath or wheezing) 30 Days Qty: 6.7 5RF pantoprazole [Protonix] 40 mg tablet,delayed release (DR/EC) 40 mg PO DAILY Qty: 30 5RF montelukast [Singulair] 10 mg tablet 10 mg PO DAILY Qty: 30 5RF acetaminophen [Tylenol Arthritis Pain] 650 mg tablet extended release 650 mg PO Q12H PRN (Reason: pain) Qty: 60 5RF baclofen 5 mg tablet 5 mg PO BID Qty: 60 5RF Mucinex 1,200 mg tablet extended release 12hr 1,200 mg PO BID 30 Days Qty: 60 5RF lidocaine [Salonpas (lidocaine)] 4 % adhesive patch,medicated 1 patch topical DAILY Qty: 60 5RF hydroxyzine HCl 25 mg tablet 25 mg PO TID PRN (Reason: anxiety) Qty: 270 2RF Rx Instructions: May take one tab three times per day as needed for anxiety trazodone 100 mg tablet 200 mg PO .bedtime PRN (Reason: sleep) Qty: 180 2RF Rx Instructions: May take two tablets at bedtime as needed for sleep fluticasone propionate 50 mcg/actuation spray,suspension 2 spray INTRANASAL QDAY PRN (Reason: allergy symptoms) (DME) oxygen concentrator with portable See Rx Instructions .Route .MEDSUPPLY Qty: 1 0RF Rx Instructions: as directed, 2L nasal cannula, oxygen concentrator with portable concentrator (DME) nebulizer accessories Kit See Rx Instructions .Route Qty: 1 0RF Rx Instructions: As directed potassium chloride 10 mEq capsule, extended release 10 meq PO DAILY Qty: 30 3RF (DME) nebulizer accessories Kit See Rx Instructions .Route Qty: 1 0RF Rx Instructions: As directed furosemide [Lasix] 20 mg tablet See Rx Instructions .ROUTE .COMPLEX Qty: 45 3RF Rx Instructions: 20 mg orally alternated with 40 mg orally every other day melatonin 5 mg tablet 5 mg PO BEDTIME PRN (Reason: sleep) Qty: 90 2RF lovastatin 20 mg tablet 20 mg PO DAILY Qty: 30 2RF azithromycin 250 mg tablet See Rx Instructions PO DAILY 6 Days Qty: 36 3RF Rx Instructions: one tablet daily on Saturday, Saturday and Saturday. gabapentin [Neurontin] 300 mg capsule 300 mg PO BID Qty: 60 2RF Shaklee Multi Vitamin 1 tab PO DAILY diphenhydramine HCl [Benadryl] 25 mg capsule 50 mg PO DAILY PRN (Reason: Allergy Symptoms) turmeric 400 mg Capsule 400 mg PO DAILY CoQ-10 30 mg Capsule 30 mg PO DAILY Abilify 5 mg tablet 5 mg PO QPM Ingrezza 40 mg capsule 40 mg PO QAM Discharge Orders: Discharge ED (Routine); Ordered 09/15/23 Ordered By: Rajinder Mcdonald Referrals: Tracey Shrestha FNP-C [Primary Care Provider] - Discharge Diet: Advance as tolerated Discharge Activity: Resume usual activity Patient Instructions: Chronic Bronchitis (ED) Coding Level of Care Code ED 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
[2023-09-15] MEDS: ipratropium-albuterol 3 mL Neb INHALATION (10:36)
[2023-09-15 10:51] LABS: Basophils # 0.1 10^3/uL (0.0-0.1); Basophils % 0.7 %; Eosinophils # 0.1 10^3/uL (0.0-0.8); Eosinophils % 1.6 %; Hematocrit 47.1 % (36-47); Lymphocytes # 1.4 10^3/uL (0.8-4.8); Lymphocytes % 16.8 %; Mean Corpuscular Hemoglobin 31.8 pg (27-33); Mean Corpuscular Volume 102.6 fl (85-98); Mean Platelet Volume 9.4 fL (7.4-10.4); Monocytes # 0.3 10^3/uL (0.2-0.9); Neutrophils # 6.62 10^3/uL (1.8-7.7); Neutrophils % 77.7 %; Nucleated Red Blood Cells % 0 %; Platelet Count 267 10^3/cmm (157-399); Red Blood Count 4.59 10^6/uL (3.85-5.65); Red Cell Distribution Width 12.2 % (12.1-15.1); White Blood Count 8.53 10^3/uL (3.29-11.43)
[2023-09-15 11:02] LABS: D Dimer 1.28 ug/mLFEU (0-0.59)
[2023-09-15 11:05] LABS: ABG PCO2 46.2 mmHg (35-45); Arterial Blood Gas Hematocrit 44.5 % (37-47); Blood Gas Allen Test Pos; Blood Gas Sample Type Arterial; Carboxyhemoglobin 2.8 %THgb (0.4-20.1); HCO3 ABG 28.5 mmol/L (22-26); HGB O2 Sat 93.6 % (95-100); Methemoglobin 0.6 % (0.4-1.5); PO2 ABG 76.3 mmHg (80.0-100.0); Total Hemoglobin 14.5 g/dL (12-16)
[2023-09-15 11:06] LABS: Blood Gas Operator Identificat MONRO; Blood Gas Sample Site Brachial, right; Oxygen Device NC; PO2 FiO2 Ratio Arterial Blood 0
--- NOTE | 2023-09-15 11:08 | CTR_ITS ---
PROCEDURE INFORMATION: Exam: CTA Chest With Contrast Exam date and time: 09/15/2023 11:43 AM Age: 68 years old Clinical indication: Shortness of breath; Additional info: SOB TECHNIQUE: Imaging protocol: Computed tomographic angiography of the chest with contrast. Exam focused on the arteries. 3D rendering (Not supervised by radiologist): MIP and/or 3D reconstructed images were created by the technologist. Radiation optimization: All CT scans at this facility use at least one of these dose optimization techniques: automated exposure control; mA and/or kV adjustment per patient size (includes targeted exams where dose is matched to clinical indication); or iterative reconstruction. Contrast material: OMNI 350; Contrast volume: 80 ml; Contrast route: INTRAVENOUS (IV); REPORTING DATA: Count of CT and Cardiac NM exams in prior 12 months: This patient has received 4 known [address]s and 0 known cardiac nuclear medicine studies in the 12 months prior to the current study. COMPARISON: CT angio chest PE protcl [id number] 11/18/2022 11:03 PM RADIATION DOSE METRICS: Total DLP (mGy-cm): 365.31 FINDINGS: Pulmonary arteries: The pulmonary arteries are adequately opacified for evaluation to the subsegmental level. There is no filling defect to suggest embolism. Aorta: There is mild aortic atherosclerotic disease. Celiac trunk and mesenteric arteries: Probable high-grade stenosis in the proximal celiac artery at the level of the diaphragmatic doug. The visible portion of the superior mesenteric artery is patent. Lungs: There is subsegmental atelectasis in the dependent portions of both lung bases. There is mild upper lung predominant centrilobular emphysema. Bronchial mucous plugging in the right lower lobe is decreased since 11/18/2022. There is mild nonspecific focal opacity in central aspect of the lingula (series 5, image 36). Pleural spaces: There is no pleural effusion or pneumothorax. Heart: Heart size is normal. There is no pericardial effusion. Lymph nodes: There is no mediastinal or hilar lymphadenopathy. Diaphragm: There are small bilateral fat containing posterior diaphragmatic hernias. Adrenal glands: Intermediate density left adrenal nodule measures 16 x 12 mm on axial series 7, image 505. Bones/joints: Moderate severity T5 superior endplate compression fracture with mildly progressive compression deformity and comminution of the superior endplate with associated bone sclerosis in the vertebral body since 11/18/2022. Mild L1 superior endplate compression fracture is new since 11/18/2022. There is bone sclerosis in the L1 vertebral body. Soft tissues: The extrathoracic soft tissues are unremarkable. CT/CT angio chest PE protcl [id number] IMPRESSION: 1. No pulmonary embolism. 2. Mild centrilobular emphysema. 3. Nonspecific focal reticular opacity in the central aspect of the lingula. Possible subsegmental atelectasis or low-grade infection. 4. Mild L1 superior endplate compression fracture is new since 11/18/2022. 5. Moderate severity T5 superior endplate compression fracture is mildly progressive since 11/18/2022. 6. 16 mm left adrenal nodule, stable since 11/18/2022. Consider 12 month follow-up adrenal CT. (Reference: Haley) 7. Incidental findings above. COMMENTS: In the absence of a history or active diagnosis of lung cancer, it is recommended that this patient with emphysema be evaluated for enrollment in a low dose CT lung cancer screening program. REFERENCES: Haley TOBIAS, et al. Management of Incidental Adrenal Masses: A White Paper of the ACR Incidental Findings Committee. J Am [facility] Radiol. 2017;14(8):8307-5452.
[2023-09-15 11:16] LABS: Alanine Aminotransferase 25 U/L (0-33); Albumin Level 4.3 g/dL (3.5-5.2); Alkaline Phosphatase 94 U/L (35-105); Anion Gap 14.4 (5-19); Aspartate Amino Transferase 25 U/L (0-32); Blood Urea Nitrogen 15 mg/dL (8-23); Calcium 9.5 mg/dL (8.5-10.5); Carbon Dioxide 28 mmol/L (22-29); Chloride 102 mmol/L (98-107); Globulin 2.9 g/dL (1.3-4.6); Glucose 101 mg/dL (65-115); NT Pro B Type Natriuretic Pept 52 pg/mL (0-125); Osmolality Calculated 291 mOsm/kg (285-295); Potassium 4.4 mmol/L (3.5-5.1); Sodium 140 mmol/L (136-145); Total Bilirubin 0.4 mg/dL (0.15-1.2); Total Protein 7.2 g/dL (6.6-8.7)
[2023-09-15 11:41] LABS: SARS Covid-2 Antigen negative (Negative)
[2023-09-15 11:42] LABS: Influenza A by IFA negative (Negative); Influenza B by IFA negative (Negative)
[2023-09-15] MEDS: iohexol 350 mg/mL 500 mL Btl (per mL) IV (11:54)
--- NOTE | 2023-09-16 16:10 | PC.NURSE ---
patient called with concerns of amoxil allergy, spoke with Dr Mcdonald and advised patient that the physician has ok'd her to take the medication and she can go ahead- patient is not ok with taking the medication, spoke with Dr Mcdonald- he gave a verbal order of Macrobid 100 mg BID for 7 days- advised patient that this RN would call in to [facility] as it is her preferred pharmacy- called in med to [facility].
== END 2023-09-15 17:56 | disposition home or self-care (01) ==
PROVIDERS: Emergency Provider Emergency Medicine; PCP Nurse Practitioner Family
DX: J44.1 Chronic obstructive pulmonary disease with (acute) exacerbation (principal); S32.010A Wedge compression fracture of first lumbar vertebra, initial encounter for closed fracture; S22.050A Wedge compression fracture of T5-T6 vertebra, initial encounter for closed fracture; Z79.82 Long term (current) use of aspirin; Z11.52 Encounter for screening for COVID-19; E78.5 Hyperlipidemia, unspecified; Z99.81 Dependence on supplemental oxygen; X58.XXXA Exposure to other specified factors, initial encounter
CPT/HCPCS: 36415; 36600; 71045; 71275; 80053; 82805; 83880; 85025; 85378; 87040; 87426; 87804; 93005; 94640; 99285; Q9967

== ENCOUNTER 2023-09-18 10:51 | Emergency (ER) | payer OTHER, MEDICAID, SELFPAY ==
[2022-11-13 09:28] VITALS: BP 111/72; BMI 24.9
[2023-09-18 10:52] VITALS: BP 123/78; PULSE 89; RESP 18; O2SAT 96; BMI 25.0
[2023-09-18 11:23] LABS: Basophils # 0.1 10^3/uL (0.0-0.1); Basophils % 0.6 %; Eosinophils # 0.2 10^3/uL (0.0-0.8); Eosinophils % 1.6 %; Hematocrit 45.9 % (36-47); Lymphocytes # 2.2 10^3/uL (0.8-4.8); Lymphocytes % 21.6 %; Mean Corpuscular HGB Conc 32.2 g/dL (30-55); Mean Corpuscular Hemoglobin 32.5 pg (27-33); Mean Corpuscular Volume 100.7 fl (85-98); Mean Platelet Volume 9.1 fL (7.4-10.4); Monocytes # 0.6 10^3/uL (0.2-0.9); Monocytes % 6.2 %; Neutrophils # 6.91 10^3/uL (1.8-7.7); Neutrophils % 69.6 %; Nucleated Red Blood Cells % 0 %; Platelet Count 308 10^3/cmm (157-399); Red Blood Count 4.56 10^6/uL (3.85-5.65); Red Cell Distribution Width 12.1 % (12.1-15.1); White Blood Count 9.94 10^3/uL (3.29-11.43)
[2023-09-18 11:37] LABS: Alanine Aminotransferase 26 U/L (0-33); Albumin Level 4.5 g/dL (3.5-5.2); Alkaline Phosphatase 95 U/L (35-105); Anion Gap 14.3 (5-19); Aspartate Amino Transferase 24 U/L (0-32); Blood Urea Nitrogen 14 mg/dL (8-23); Calcium 9.7 mg/dL (8.5-10.5); Carbon Dioxide 31 mmol/L (22-29); Chloride 98 mmol/L (98-107); Globulin 2.9 g/dL (1.3-4.6); Glucose 95 mg/dL (65-115); Osmolality Calculated 288 mOsm/kg (285-295); Potassium 4.3 mmol/L (3.5-5.1); Sodium 139 mmol/L (136-145); Total Bilirubin 0.4 mg/dL (0.15-1.2); Total Protein 7.4 g/dL (6.6-8.7)
--- NOTE | 2023-09-18 11:37 | ED_ITS ---
HPI - SOB/Dyspnea General: Chief Complaint: Shortness of Breath/Dyspnea Stated Complaint: coughing blood Time Seen by Provider: 09/18/23 11:00 History of Present Illness: HPI Narrative: Patient presents to the ER with complaints of coughing up blood. Patient was seen in the ER on Saturday diagnosed with bronchitis and after reviewing that record it noted she was coughing up blood at that time as well to they had lab work and CTA which showed mild bronchitis. She was started on antibiotic. Patient is on aspirin daily. Patient's vital signs are stable patient is on 2.5 L of oxygen and saturation is 96%. Patient has been taking her antibiotics. Review of Systems General: Reports: 10 or more systems reviewed and unremarkable except in HPI and below PFSH ED PFSH: Medical History Acute exacerbation of chronic obstructive pulmonary disease (COPD) Anxiety and depression Back pain Bipolar 1 disorder, mixed, moderate Bipolar disorder, current episode mixed, unspecified Chronic arthritis Chronic gastroesophageal reflux disease Chronic GERD Chronic neck and back pain Chronic obstructive pulmonary disease, unspecified Chronic post-traumatic stress disorder COPD (chronic obstructive pulmonary disease) COVID DDD (degenerative disc disease), lumbosacral Depression, major, recurrent, moderate Dry throat Dyskinesia, tardive Drug induced Dyslipidemia Environmental and seasonal allergies Localized swelling, mass and lump, lower limb, bilateral Major depressive disorder, recurrent episode, moderate with anxious distress Obstructive sleep apnea Panic disorder with agoraphobia Psychiatric care Unspecified hearing loss, left ear Surgical History H/O esophagogastroduodenoscopy (11/08/21) History of back surgery History of bilateral knee replacement History of colonoscopy within 10 yrs History of D&C History of laparoscopy History of sinus surgery History of tonsillectomy Family History Other Cancer Chronic obstructive pulmonary disease, unspecified Diabetes Heart disease Hyperlipidemia Hypertension Thyroid disease Denies family history of Colon cancer Ovarian cancer Breast cancer Uterine cancer Stroke Female Reproductive History: Para: 0 Spontaneous abortions: No Date of menopause: 05/03/04 Physical Exam Const: COMMON NORMALS: no acute distress, average body habitus, patient oriented x3, no limitations, healthy appearing, alert and well nourished HENMT: COMMON NORMALS: normocephalic, atraumatic, hearing grossly normal bilaterally, external ears normal, Normal external nose present, moist oral mucous membranes and oropharynx normal HEAD & SCALP: normocephalic and atraumatic NOSE: Normal external nose present EXTERNAL EAR: Yes external ears normal Neck/C-Spine: COMMON NORMALS: no JVD Chest: COMMONS NORMALS: normal inspection of the chest and normal palpation of entire chest wall Resp: COMMON NORMALS: normal respiratory effort, No retractions, No use of accessory muscles and clear to auscultation bilaterally AUSCULTATION: clear to auscultation bilaterally Cardio: COMMON NORMALS: no JVD, regular rate, regular rhythm, S1 normal heart sound present, S2 normal heart sound present, No gallops present (Cardio), No clicks present (Cardio), No murmurs present (Cardio) and No rub (Cardio) RATE: regular rate RHYTHM: regular rhythm HEART SOUNDS: S1 normal heart sound present and S2 normal heart sound present GI: COMMON NORMALS: Normal to inspection, nondistended, normoactive bowel sounds present, Soft to palpation, non-tender, No hepatosplenomegaly present and no masses PALPATION: Yes Soft to palpation and Yes No hepatosplenomegaly present Neuro: COMMON NORMALS: patient oriented x3 SENSORIUM/ORIENTATION: Yes alert Course Vital Signs: Vital signs: Vital Signs Pulse Rate 89 09/18/23 10:52 Respiratory Rate 18 09/18/23 10:52 Blood Pressure 123/78 09/18/23 10:52 Pulse Oximetry 96 09/18/23 10:52 Oxygen Delivery Me thod Nasal Cannula 09/18/23 10:52 Oxygen Flow Rate 2.5 09/18/23 10:52 MDM - SOB/Dyspnea Medical Decision Making Medical records were reviewed from patient's prior ER visit. Lab work was again obtained which is essentially unremarkable. Patient is sitting in her bed comfortably and and appears to almost be asleep. Patient is on 2.5 L of oxygen. Patient will have her aspirin stopped should be given a dose of steroids in the ER and discharged home on steroids and told to follow-up with her family practice doctor in the next 3 to 5 days for further evaluation and treatment. Differential Diagnosis Unlikely acute exacerbation of chronic obstructive airways disease, congestive heart failure, community acquired pneumonia, asthma with exacerbation or pulmonary embolism Medical Records I reviewed the patient's medical records. Lab Data I reviewed the patient's lab results. 09/18/23 11:10 09/18/23 11:10 Labs/Radiology: Laboratory Results WBC 9.94 10^3/uL (3.29-11.43) 09/18/23 11:10 RBC 4.56 10^6/uL (3.85-5.65) 09/18/23 11:10 Hgb 14.80 g/dL (11.27-16.99) 09/18/23 11:10 Hct 45.9 % (36-47) 09/18/23 11:10 MCV 100.7 fl (85-98) H 09/18/23 11:10 MCH 32.5 pg (27-33) 09/18/23 11:10 MCHC 32.2 g/dL (30-55) 09/18/23 11:10 RDW 12.1 % (12.1-15.1) 09/18/23 11:10 Plt Count 308 10^3/cmm (157-399) 09/18/23 11:10 MPV 9.1 fL (7.4-10.4) 09/18/23 11:10 Neut % (Auto) 69.6 % 09/18/23 11:10 Lymph % (Auto) 21.6 % 09/18/23 11:10 [place] % (Auto) 6.2 % 09/18/23 11:10 Eos % (Auto) 1.6 % 09/18/23 11:10 Baso % (Auto) 0.6 % 09/18/23 11:10 Neut # (Auto) 6.91 10^3/uL (1.8-7.7) 09/18/23 11:10 Lymph # (Auto) 2.2 10^3/uL (0.8-4.8) 09/18/23 11:10 [place] # (Auto) 0.6 10^3/uL (0.2-0.9) 09/18/23 11:10 Eos # (Auto) 0.2 10^3/uL (0.0-0.8) 09/18/23 11:10 Baso # (Auto) 0.1 10^3/uL (0.0-0.1) 09/18/23 11:10 Nucleated RBC % (auto) 0 % 09/18/23 11:10 Nucleated RBCs # 0.0 /100WBC 09/18/23 11:10 PT 12.40 SECONDS (12.1-14.9) 09/18/23 11:10 INR 0.90 (0.8-1.2) 09/18/23 11:10 Sodium 139 mmol/L (136-145) 09/18/23 11:10 Potassium 4.3 mmol/L (3.5-5.1) 09/18/23 11:10 Chloride 98 mmol/L (98-107) 09/18/23 11:10 Carbon Dioxide 31 mmol/L (22-29) H 09/18/23 11:10 Anion Gap 14.3 (5-19) 09/18/23 11:10 BUN 14 mg/dL (8-23) 09/18/23 11:10 Creatinine 0.7 mg/dL (0.5-0.9) 09/18/23 11:10 GFR Calculation 83.0 mL/min (90-130) L 09/18/23 11:10 Glucose 95 mg/dL (65-115) 09/18/23 11:10 Calculated Osmolality 288 mOsm/kg (285-295) 09/18/23 11:10 Calcium 9.7 mg/dL (8.5-10.5) 09/18/23 11:10 Total Bilirubin 0.4 mg/dL (0.15-1.2) 09/18/23 11:10 AST 24 U/L (0-32) 09/18/23 11:10 ALT 26 U/L (0-33) 09/18/23 11:10 Alkaline Phosphatase 95 U/L (35-105) 09/18/23 11:10 Total Protein 7.4 g/dL (6.6-8.7) 09/18/23 11:10 Albumin 4.5 g/dL (3.5-5.2) 09/18/23 11:10 Globulin 2.9 g/dL (1.3-4.6) 09/18/23 11:10 Urine Color Yellow (Yellow) 09/18/23 11:09 Urine Appearance Clear (CLEAR) 09/18/23 11:09 Urine pH 5 (5-7) 09/18/23 11:09 Ur Specific [place] 1.010 (1.005-1.030) 09/18/23 11:09 Urine Protein Neg (Negative) 09/18/23 11:09 Urine Glucose (UA) Norm (Normal) 09/18/23 11:09 Urine Ketones Negative (Negative) 09/18/23 11:09 Urine Blood Neg (Negative) 09/18/23 11:09 Urine Nitrate Negative (Negative) 09/18/23 11:09 Urine Bilirubin Neg (Negative) 09/18/23 11:09 Urine Urobilinogen Norm mg/dL (Negative) 09/18/23 11:09 Ur Leukocyte Esterase Negative (Negative) 09/18/23 11:09 No radiology studies performed this visit Discharge Plan Discharge Patient Disposition: Home Clinical Impression: Cough with hemoptysis, Acute exacerbation of chronic obstructive pulmonary disease Condition: Stable Prescriptions: New prednisone 50 mg tablet 50 mg PO DAILY 5 Days Qty: 5 0RF No Action aspirin [Adult Low Dose Aspirin] 81 mg tablet,delayed release (DR/EC) 81 mg PO DAILY (DME) compressor, for nebulizer Device See Rx Instructions .Route Qty: 1 0RF Rx Instructions: As directed budesonide 0.5 mg/2 mL suspension for nebulization 0.5 mg inhalation BID Qty: 120 11RF formoterol fumarate 20 mcg/2 mL solution for nebulization 2 ml inhalation BID Qty: 120 11RF revefenacin 175 mcg/3 mL solution for nebulization 175 mcg inhalation DAILY Qty: 90 11RF (DME) Wheelchair See Rx Instructions .Route .MEDSUPPLY Qty: 1 0RF Rx Instructions: As directed albuterol sulfate 2.5 mg /3 mL (0.083 %) solution for nebulization 2.5 mg inhalation QID PRN (Reason: shortness of breath or wheezing) Qty: 75 5RF albuterol sulfate [ProAir HFA] 90 mcg/actuation HFA aerosol inhaler 2 puff INHALATION QID PRN (Reason: shortness of breath or wheezing) 30 Days Qty: 6.7 5RF pantoprazole [Protonix] 40 mg tablet,delayed release (DR/EC) 40 mg PO DAILY Qty: 30 5RF montelukast [Singulair] 10 mg tablet 10 mg PO DAILY Qty: 30 5RF acetaminophen [Tylenol Arthritis Pain] 650 mg tablet extended release 650 mg PO Q12H PRN (Reason: pain) Qty: 60 5RF Mucinex 1,200 mg tablet extended release 12hr 1,200 mg PO BID 30 Days Qty: 60 5RF lidocaine [Salonpas (lidocaine)] 4 % adhesive patch,medicated 1 patch topical DAILY Qty: 60 5RF hydroxyzine HCl 25 mg tablet 25 mg PO TID PRN (Reason: anxiety) Qty: 270 2RF Rx Instructions: May take one tab three times per day as needed for anxiety fluticasone propionate 50 mcg/actuation spray,suspension 2 spray INTRANASAL QDAY PRN (Reason: allergy symptoms) (DME) oxygen concentrator with portable See Rx Instructions .Route .MEDSUPPLY Qty: 1 0RF Rx Instructions: as directed, 2L nasal cannula, oxygen concentrator with portable concentrator (DME) nebulizer accessories Kit See Rx Instructions .Route Qty: 1 0RF Rx Instructions: As directed potassium chloride 10 mEq capsule, extended release 10 meq PO DAILY Qty: 30 3RF (DME) nebulizer accessories Kit See Rx Instructions .Route Qty: 1 0RF Rx Instructions: As directed furosemide [Lasix] 20 mg tablet See Rx Instructions .ROUTE .COMPLEX Qty: 45 3RF Rx Instructions: 20 mg orally alternated with 40 mg orally every other day melatonin 5 mg tablet 5 mg PO BEDTIME PRN (Reason: sleep) Qty: 90 2RF lovastatin 20 mg tablet 20 mg PO DAILY Qty: 30 2RF azithromycin 250 mg tablet See Rx Instructions PO DAILY 6 Days Qty: 36 3RF Rx Instructions: one tablet daily on Saturday, Saturday and Saturday. gabapentin [Neurontin] 300 mg capsule 300 mg PO BID Qty: 60 2RF [place] Multi Vitamin 1 tab PO DAILY diphenhydramine HCl [Benadryl] 25 mg capsule 50 mg PO DAILY PRN (Reason: Allergy Symptoms) turmeric 400 mg Capsule 400 mg PO DAILY Macrobid 100 mg Capsule 100 mg PO BID Rx Instructions: must administer with a meal/food trazodone 100 mg tablet 200 mg PO BEDTIME PRN (Reason: sleep) Rx Instructions: May take two tablets at bedtime as needed for sleep baclofen 5 mg tablet 5 mg PO BID coenzyme Q10 [CoQ-10] 30 mg Capsule 30 mg PO DAILY aripiprazole [Abilify] 5 mg tablet 5 mg PO QPM [place] 40 mg capsule 40 mg PO QAM Discharge Orders: Discharge ED (Routine); Ordered 09/18/23 Ordered By: Twin Foster Referrals: Tracey Shrestha FNP-C [Primary Care Provider] - 1-3 days Patient Instructions: Coughing Up Blood (Hemoptysis) (ED) Activity Restrictions/Additional Instructions: Please continue your antibiotics as previously prescribed. Please take your steroids as directed. Please follow-up with your family practice physician in the next 1 to 3 days for further evaluation and treatment. If your coughing up blood worsens please return to the ER for further evaluation. Coding Level of Care Code ED Nurses Superintendent for Satinder Solano
[2023-09-18 12:02] LABS: Add Urine Microscopic? NO; Charge for UA Resulting for Rev
[2023-09-18 12:12] LABS: Bilirubin Urine Neg (Negative); Blood Urine Neg (Negative); Glucose Urine UA Norm (Normal); Ketones Urine Negative (Negative); Leukocyte Esterase Urine Negative (Negative); Nitrate Urine Negative (Negative); Protein Urine Neg (Negative); Urine Appearance Clear (CLEAR); Urine Color Yellow (Yellow); Urobilinogen Urine Norm (Negative); pH Urine 5 (5-7)
[2023-09-18] MEDS: methylPREDNISolone sod succ 125 mg/2 mL INJ IVP (12:56)
== END 2023-09-18 13:07 | disposition home or self-care (01) ==
PROVIDERS: Emergency Provider Emergency Medicine; PCP Nurse Practitioner Family
DX: J44.1 Chronic obstructive pulmonary disease with (acute) exacerbation (principal); R04.2 Hemoptysis; Z79.82 Long term (current) use of aspirin; E78.5 Hyperlipidemia, unspecified
CPT/HCPCS: 36415; 80053; 81003; 85025; 85610; 96374; 99284; J2930

== ENCOUNTER → 2023-10-24 10:15 | Outpatient (BNVA) | payer OTHER, MEDICAID, SELFPAY ==
[2022-11-13 09:28] VITALS: BP 111/72; BMI 24.9
== END ==
PROVIDERS: PCP Nurse Practitioner Family; Visit Provider Anesthesiology Pain Medicine
DX: M51.37 Other intervertebral disc degeneration, lumbosacral region; M47.816 Spondylosis without myelopathy or radiculopathy, lumbar region; M53.3 Sacrococcygeal disorders, not elsewhere classified
CPT/HCPCS: 99214

== ENCOUNTER → 2023-10-30 13:35 | Outpatient (BNVA) | payer MEDICARE, MEDICAID, SELFPAY ==
[2022-11-13 09:28] VITALS: BP 111/72; BMI 24.9
== END ==
PROVIDERS: PCP Nurse Practitioner Family; Visit Provider Internal Medicine Pulmonary Disease
DX: Z09 Encounter for follow-up examination after completed treatment for conditions other than malignant neoplasm (principal); J45.30 Mild persistent asthma, uncomplicated; J44.1 Chronic obstructive pulmonary disease with (acute) exacerbation; F17.210 Nicotine dependence, cigarettes, uncomplicated
CPT/HCPCS: 99214

== ENCOUNTER → 2023-11-20 13:05 | Outpatient (BNVA) | payer MEDICARE, MEDICAID, SELFPAY ==
[2022-11-13 09:28] VITALS: BP 111/72; BMI 24.9
== END ==
PROVIDERS: PCP Nurse Practitioner Family; Visit Provider Nurse Practitioner Family
DX: L29.8 Other pruritus (principal); L57.8 Other skin changes due to chronic exposure to nonionizing radiation; D22.62 Melanocytic nevi of left upper limb, including shoulder
CPT/HCPCS: 99214

== ENCOUNTER → 2023-12-03 13:12 | Outpatient (BNVA) | payer MEDICARE, MEDICAID, SELFPAY ==
[2022-11-13 09:28] VITALS: BP 111/72; BMI 24.9
== END ==
PROVIDERS: PCP Nurse Practitioner Family; Visit Provider Anesthesiology Pain Medicine
DX: M54.16 Radiculopathy, lumbar region (principal)
CPT/HCPCS: 64483; 64484; J1100; J3490

== ENCOUNTER → 2023-12-19 10:39 | Outpatient (BNVA) | payer MEDICARE, MEDICAID, SELFPAY ==
[2023-12-19 11:39] VITALS: BP 111/72; BMI 24.9
== END ==
PROVIDERS: PCP Nurse Practitioner Family; Visit Provider Anesthesiology Pain Medicine
DX: M51.37 Other intervertebral disc degeneration, lumbosacral region; M47.816 Spondylosis without myelopathy or radiculopathy, lumbar region; M53.3 Sacrococcygeal disorders, not elsewhere classified
CPT/HCPCS: 99214

== ENCOUNTER → 2024-01-07 13:47 | Outpatient (BNVA) | payer MEDICARE, OTHER, SELFPAY ==
[2023-12-19 11:39] VITALS: BP 111/72; BMI 24.9
== END ==
PROVIDERS: PCP Nurse Practitioner Family; Visit Provider Nurse Practitioner Psychiatric/Mental Health
DX: Z79.899 Other long term (current) drug therapy (principal)
CPT/HCPCS: 80053; 80061; 83036

== ENCOUNTER → 2024-01-10 09:12 | Outpatient (BNVA) | payer MEDICARE, MEDICAID, SELFPAY ==
[2023-12-19 11:39] VITALS: BP 111/72; BMI 24.9
== END ==
PROVIDERS: PCP Nurse Practitioner Family; Visit Provider Nurse Practitioner Family
DX: R35.0 Frequency of micturition; Z79.899 Other long term (current) drug therapy
CPT/HCPCS: 81000

== ENCOUNTER 2024-03-12 11:24 | Outpatient (CLI) | payer MEDICARE, MEDICAID, SELFPAY ==
[2024-02-18 12:03] VITALS: BP 111/72; BMI 24.9
--- NOTE | 2024-03-12 11:30 | MM_ITS ---
WS: [id number] BILATERAL SCREENING DIGITAL TOMOSYNTHESIS MAMMOGRAM WITH CAD HISTORY: SCREENING COMPARISON: 02/26/2023, 02/20/2022 and 11/25/2020 Bilateral CC and MLO views with tomosynthesis and synthetic mammography submitted. Computer aided det ection analyzed. Breast composition: There are scattered areas of fibroglandular density. No suspicious masses, microc alcifications or architectural distortion. MM/[place] [id number] IMPRESSION: BI-RADS: 1-Negative FOLLOW UP: 1 Year Follow-up
== END 2024-03-12 11:25 | disposition home or self-care (01) ==
LOC: RAD 11:24
PROVIDERS: PCP Nurse Practitioner Family; Visit Provider Nurse Practitioner Family
DX: Z12.31 Encounter for screening mammogram for malignant neoplasm of breast (principal)
CPT/HCPCS: 77063; 77067

== ENCOUNTER → 2024-03-19 10:24 | Outpatient (BNVA) | payer MEDICARE, MEDICAID, SELFPAY ==
[2024-02-18 12:03] VITALS: BP 111/72; BMI 24.9
== END ==
PROVIDERS: PCP Nurse Practitioner Family; Visit Provider Anesthesiology Pain Medicine
DX: M51.37 Other intervertebral disc degeneration, lumbosacral region; M47.816 Spondylosis without myelopathy or radiculopathy, lumbar region; M53.3 Sacrococcygeal disorders, not elsewhere classified
CPT/HCPCS: 99214

== ENCOUNTER → 2024-04-01 14:13 | Outpatient (BNVA) | payer MEDICARE, MEDICAID, SELFPAY ==
[2024-02-18 12:03] VITALS: BP 111/72; BMI 24.9
== END ==
PROVIDERS: PCP Nurse Practitioner Family; Visit Provider Internal Medicine Pulmonary Disease
DX: J22 Unspecified acute lower respiratory infection (principal); J44.1 Chronic obstructive pulmonary disease with (acute) exacerbation; J43.2 Centrilobular emphysema; F17.210 Nicotine dependence, cigarettes, uncomplicated
CPT/HCPCS: 99214

== ENCOUNTER → 2024-04-07 13:53 | Outpatient (BNVA) | payer MEDICARE, OTHER, SELFPAY ==
[2024-02-18 12:03] VITALS: BP 111/72; BMI 24.9
== END ==
PROVIDERS: PCP Nurse Practitioner Family; Visit Provider Anesthesiology Pain Medicine
DX: M16.12 Unilateral primary osteoarthritis, left hip
CPT/HCPCS: 20610; 77002; J1010; J3490

== ENCOUNTER → 2024-04-23 10:11 | Outpatient (BNVA) | payer MEDICARE, SELFPAY ==
[2024-02-18 12:03] VITALS: BP 111/72; BMI 24.9
== END ==
PROVIDERS: PCP Nurse Practitioner Family; Visit Provider Anesthesiology Pain Medicine
DX: M51.37 Other intervertebral disc degeneration, lumbosacral region; M47.816 Spondylosis without myelopathy or radiculopathy, lumbar region; M53.3 Sacrococcygeal disorders, not elsewhere classified; M25.552 Pain in left hip
CPT/HCPCS: 99214

== ENCOUNTER → 2024-06-16 15:09 | Outpatient (BNVA) | payer MEDICARE, MEDICAID, SELFPAY ==
[2024-06-02 13:54] VITALS: BP 111/72; BMI 24.9
== END ==
PROVIDERS: PCP Nurse Practitioner Family; Visit Provider Internal Medicine Critical Care Medicine
DX: J96.21 Acute and chronic respiratory failure with hypoxia (principal); J44.1 Chronic obstructive pulmonary disease with (acute) exacerbation; K21.9 Gastro-esophageal reflux disease without esophagitis; F17.210 Nicotine dependence, cigarettes, uncomplicated; Z71.6 Tobacco abuse counseling; Z71.89 Other specified counseling
CPT/HCPCS: 99214

== ENCOUNTER → 2024-08-27 14:20 | Outpatient (BNVA) | payer MEDICARE, MEDICAID, SELFPAY ==
[2024-06-02 13:54] VITALS: BP 111/72; BMI 24.9
== END ==
PROVIDERS: PCP Nurse Practitioner; Visit Provider Nurse Practitioner
DX: E55.9 Vitamin D deficiency, unspecified (principal); E78.5 Hyperlipidemia, unspecified
CPT/HCPCS: 80053; 82306; 84443; 85025

== ENCOUNTER 2024-09-10 09:39 | Outpatient (CLI) | payer MEDICARE, MEDICAID, SELFPAY ==
[2024-06-02 13:54] VITALS: BP 111/72; BMI 24.9
--- NOTE | 2024-09-10 10:00 | CT_ITS ---
WS: [id number] CT ABDOMEN PELVIS TECHNIQUE: Contrast-enhanced CT of the abdomen and pelvis with coronal and sagittal reformatted image s. CLINICAL INFORMATION: E27.9 - Disorder of adrenal gland, unspecified COMPARISON: CT 01/05/2022 DLP: 941.[address] scans at [facility] use at least one of these dose optimization techniques: automated e xposure control; mA and/or kV adjustment per patient size (includes targeted exams where dose is matc hed to clinical indication); or iterative reconstruction. FINDINGS: Mild thickening of the LEFT adrenal gland is unchanged with a small nodule better appreciated on toda y's thin cut study measuring 9 mm. Absolute and relative washout calculations most compatible with ad renal adenoma. Noncontrast Hounsfield units obtained from the CT lung screening study earlier today Normal RIGHT adrenal gland. Diffuse fatty infiltration of the liver. Mild hepatomegaly. Normal spleen . Normal GE junction. Lung bases are well aerated. Small fat-containing posterior diaphragmatic herni as. Normal pancreas. Normal renal parenchymal enhancement. No hydronephrosis. Normal caliber abdomina l aorta. Moderate aortic calcification. Portal vein and splenic vein are patent. Normal gallbladder. Sigmoid diverticulosis. Tiny fat-containing umbilical hernia. Lumbar curve with advanced spondylitic changes. Chronic compression of the superior endplate L2 with anterior wedging appears new compared t o previous but has a chronic appearance. Tiny LEFT greater than RIGHT fat-containing inguinal hernias . CT/CT abdomen pelvis w con* [id number] IMPRESSION: 1. Mild thickening of the LEFT adrenal gland is unchanged with a small nodule better appreciated today measuring 9 mm. Absolute and relative washout most co mpatible with adrenal adenoma. 2. No other acute findings
[2024-09-10] MEDS: iohexol 350 mg/mL 500 mL Btl (per mL) PO (10:46)
--- NOTE | 2024-09-10 11:15 | CT_ITS ---
WS: [id number] LDCT LUNG CANCER SCREENING TECHNIQUE: Noncontrast CT of the chest with coronal and sagittal reformatted images. CLINICAL INFORMATION: F17.210 - Nicotine dependence, cigarettes, uncomplicated COMPARISON: 2021 DLP: 60.50 mGy.cm DIvol: Mean CTDIvol: 1.20 (mGy) All CT scans at [facility] use at least one of these dose optimization techniques: automat ed exposure control; mA and/or kV adjustment per patient size (includes targeted exams where dose is matched to clinical indication); or iterative reconstruction. FINDINGS: Mild chronic emphysematous change. No new suspicious pulmonary parenchymal abnormalities. 4 mm noncal cified nodule RIGHT lower lobe laterally. A few tiny scattered micronodules. Aortic calcification. Normal caliber thoracic aorta. Coronary calcification. No mediastinal or hilar lymphadenopathy. Small LEFT adrenal adenoma. Normal GE junction. No axillary lymphadenopathy. Chronic compression fracture with anterior wedging in the upper thoracic spine T5 unchanged. Small fat-conta ining posterior diaphragmatic hernias CT/CT lung screening [id number] IMPRESSION: LUNG-RADS: 2-Benign Appearance or Behavior FOLLOW UP: 12 Month: Continue annual screening with LDCT
[2024-09-10] MEDS: iohexol 350 mg/mL 500 mL Btl (per mL) IV (11:18)
== END 2024-09-10 09:40 | disposition home or self-care (01) ==
LOC: RAD 09:41
PROVIDERS: PCP Nurse Practitioner; Visit Provider Nurse Practitioner
DX: Z13.820 Encounter for screening for osteoporosis (principal); E27.9 Disorder of adrenal gland, unspecified; F17.210 Nicotine dependence, cigarettes, uncomplicated; R91.8 Other nonspecific abnormal finding of lung field; I70.0 Atherosclerosis of aorta; I25.84 Coronary atherosclerosis due to calcified coronary lesion; D35.02 Benign neoplasm of left adrenal gland; S22.050D Wedge compression fracture of T5-T6 vertebra, subsequent encounter for fracture with routine healing; X58.XXXA Exposure to other specified factors, initial encounter; K76.0 Fatty (change of) liver, not elsewhere classified; K42.9 Umbilical hernia without obstruction or gangrene; K57.90 Diverticulosis of intestine, part unspecified, without perforation or abscess without bleeding; M47.896 Other spondylosis, lumbar region; S32.020A Wedge compression fracture of second lumbar vertebra, initial encounter for closed fracture
CPT/HCPCS: 71271; 74177

== ENCOUNTER → 2025-01-28 14:35 | Outpatient (BNVA) | payer MEDICARE, SELFPAY ==
[2024-09-17 08:24] VITALS: BP 111/72; BMI 24.9
== END ==
PROVIDERS: PCP Nurse Practitioner; Visit Provider Nurse Practitioner Family
DX: D69.2 Other nonthrombocytopenic purpura (principal); D23.71 Other benign neoplasm of skin of right lower limb, including hip; L82.1 Other seborrheic keratosis; L57.8 Other skin changes due to chronic exposure to nonionizing radiation; Z08 Encounter for follow-up examination after completed treatment for malignant neoplasm; Z85.828 Personal history of other malignant neoplasm of skin; D48.5 Neoplasm of uncertain behavior of skin
CPT/HCPCS: 11102; 99213

== ENCOUNTER → 2025-02-04 13:16 | Outpatient (BNVA) | payer MEDICARE, SELFPAY ==
[2024-09-17 08:24] VITALS: BP 111/72; BMI 24.9
== END ==
PROVIDERS: PCP Nurse Practitioner; Visit Provider Nurse Practitioner
DX: E78.5 Hyperlipidemia, unspecified (principal); E55.9 Vitamin D deficiency, unspecified
CPT/HCPCS: 80053; 80061; 82306; 82607; 85025

== ENCOUNTER → 2025-02-25 13:07 | Outpatient (BNVA) | payer MEDICARE, OTHER, SELFPAY ==
[2024-09-17 08:24] VITALS: BP 111/72; BMI 24.9
== END ==
PROVIDERS: PCP Nurse Practitioner; Visit Provider Nurse Practitioner Family
DX: L90.5 Scar conditions and fibrosis of skin (principal); L21.8 Other seborrheic dermatitis; D23.71 Other benign neoplasm of skin of right lower limb, including hip; Z08 Encounter for follow-up examination after completed treatment for malignant neoplasm; Z85.828 Personal history of other malignant neoplasm of skin
CPT/HCPCS: 99214

== ENCOUNTER 2025-03-18 12:47 | Outpatient (CLI) | payer OTHER, SELFPAY ==
[2024-09-17 08:24] VITALS: BP 111/72; BMI 24.9
--- NOTE | 2025-03-18 13:00 | MM_ITS ---
WS: [email or web address] BILATERAL 3D TOMOSYNTHESIS DIGITAL SCREENING MAMMOGRAPHY WITH CAD CLINICAL INFORMATION: Z12.31 - Encounter for screening mammogram for malignant ... HISTORY: Screening mammogram. No current complaints. COMPARISON: 2023 TECHNIQUE: Bilateral CC and MLO views. FINDINGS: The breasts are composed of heterogeneous fibroglandular density tissue, which can limit the detection of small underlying mass lesions. No suspicious mass, asymmetry, calcifications, or architectural distortion. No evidence of malignancy. MM/MM [facility] tomosynthesis [id number] IMPRESSION: DENSITY: The breasts are heterogeneously dense, which may obscure small masses. BI-RADS: 1 - Negative FOLLOW UP: 1 Year Follow-up Recommend return to annual screening mammography.
== END 2025-03-18 12:48 | disposition home or self-care (01) ==
LOC: RAD 12:49
PROVIDERS: PCP Nurse Practitioner; Visit Provider Nurse Practitioner
DX: Z12.31 Encounter for screening mammogram for malignant neoplasm of breast (principal); R92.333 Mammographic heterogeneous density, bilateral breasts
CPT/HCPCS: 77063; 77067

== ENCOUNTER → 2025-06-10 13:01 | Outpatient (BNVA) | payer MEDICARE, OTHER, MEDICAID, SELFPAY ==
[2024-09-17 08:24] VITALS: BP 111/72; BMI 24.9
== END ==
PROVIDERS: PCP Nurse Practitioner; Visit Provider Nurse Practitioner Family
DX: L90.5 Scar conditions and fibrosis of skin (principal); L21.8 Other seborrheic dermatitis; Z08 Encounter for follow-up examination after completed treatment for malignant neoplasm; Z85.828 Personal history of other malignant neoplasm of skin
CPT/HCPCS: 99214

== ENCOUNTER → 2025-07-20 10:48 | Outpatient (BNVA) | payer MEDICARE, OTHER, MEDICAID, SELFPAY ==
[2024-09-17 08:24] VITALS: BP 111/72; BMI 24.9
== END ==
PROVIDERS: PCP Nurse Practitioner; Visit Provider Internal Medicine
DX: J44.89 Other specified chronic obstructive pulmonary disease (principal); J96.10 Chronic respiratory failure, unspecified whether with hypoxia or hypercapnia; Z99.81 Dependence on supplemental oxygen; F17.210 Nicotine dependence, cigarettes, uncomplicated; J44.9 Chronic obstructive pulmonary disease, unspecified; J30.2 Other seasonal allergic rhinitis; Z71.6 Tobacco abuse counseling
CPT/HCPCS: 36415; 85025; 86003; 99214

== ENCOUNTER 2025-08-05 13:46 | Outpatient (CLI) | payer OTHER, MEDICAID, SELFPAY ==
[2024-09-17 08:24] VITALS: BP 111/72; BMI 24.9
== END 2025-08-05 13:47 | disposition home or self-care (01) ==
LOC: LAB 08-06 06:56
PROVIDERS: PCP Nurse Practitioner; Visit Provider Nurse Practitioner
DX: E78.5 Hyperlipidemia, unspecified (principal); E55.9 Vitamin D deficiency, unspecified
CPT/HCPCS: 80053; 80061; 82306

== ENCOUNTER 2025-09-14 10:54 | Outpatient (CLI) | payer MEDICARE, MEDICAID, SELFPAY ==
[2024-09-17 08:24] VITALS: BP 111/72; BMI 24.9
--- NOTE | 2025-09-14 11:15 | CT_ITS ---
WS: [id number] LDCT LUNG CANCER SCREENING HISTORY: F17.210 - Nicotine dependence, cigarettes, uncomplicated TECHNIQUE: Axial imaging performed from the apices to 1 cm below the costophrenic angles. Coronal and sagittal reformats are submitted with axial MIP series. All CT scans at [facility] use at least one of these dose optimization techniques: automated exposure control; mA and/or kV adjustment per patient size (includes targeted exams where dose is matched to clinical indication); or iterative reconstruction. DLP: 57.39 mGy.cm DIvol: Mean CTDIvol: 1.00 (mGy) COMPARISON: 09/10/2024 Diagnostic quality: Satisfactory Lungs: Lungs are mildly hyperexpanded. No pulmonary mass or nodule. No pneumonia. No endobronchial lesions. Heart: Normal size heart with no pericardial effusion.. Other findings: Mild atherosclerosis aorta. Normal size pulmonary artery. No pathologically enlarged lymph nodes. Small hiatal hernia. Bilateral diaphragmatic hernias containing omental fat only. Mild thickening and nodularity of the LEFT adrenal gland. Severe, stable compression deformity at T5. CT/CT lung screening [id number] IMPRESSION: LUNG-RADS: 2-Benign Appearance or Behavior FOLLOW UP: 12 Month: Continue annual screening with LDCT OTHER FINDINGS (S MODIFIER): None.
== END 2025-09-14 10:55 | disposition home or self-care (01) ==
LOC: RAD 10:55
PROVIDERS: PCP Nurse Practitioner; Visit Provider Nurse Practitioner
DX: F17.210 Nicotine dependence, cigarettes, uncomplicated (principal); J98.4 Other disorders of lung; R59.9 Enlarged lymph nodes, unspecified; K44.9 Diaphragmatic hernia without obstruction or gangrene; E27.9 Disorder of adrenal gland, unspecified; E27.8 Other specified disorders of adrenal gland; M43.8X4 Other specified deforming dorsopathies, thoracic region
CPT/HCPCS: 71271

== ENCOUNTER → 2025-10-12 09:33 | Outpatient (BNVA) | payer MEDICARE, MEDICAID, SELFPAY ==
[2025-10-12 10:03] VITALS: BP 111/72; BMI 24.9
== END ==
PROVIDERS: PCP Nurse Practitioner; Visit Provider Anesthesiology Pain Medicine
DX: M51.379 Other intervertebral disc degeneration, lumbosacral region without mention of lumbar back pain or lower extremity pain (principal); M47.816 Spondylosis without myelopathy or radiculopathy, lumbar region; M25.559 Pain in unspecified hip; M53.3 Sacrococcygeal disorders, not elsewhere classified; F17.210 Nicotine dependence, cigarettes, uncomplicated
CPT/HCPCS: 99214